=== PATIENT | male | born 1930 | race Hispanic/Latino ===

== ENCOUNTER 2017-08-10 14:13 | Inpatient (IN) | payer MEDICARE ==
[2017-08-10 14:14] VITALS: BMI 20.7
[2017-08-10 15:29] LABS: BASO # 0.02 K/mm3 (0.0-2.0); BASO % 0.2 % (0.0-3.0); EOS # 0.1 (0.0-0.7); EOS % 1.3 % (1.5-5.0); GRAN # 7.37 (1.4-6.5); GRAN % 75.6 % (50.0-68.0); HEMATOCRIT 37.5 % (42.0-52.0); LYMPH # 1.2 (1.2-3.4); LYMPH % 12.4 % (22.0-35.0); MEAN CELL VOLUME 96.2 fl (80.0-105.0); MEAN CORPUSCULAR HEMOGLOBIN 33.1 pg (25.0-35.0); MEAN CORPUSCULAR HGB CONC 34.4 g/dl (31.0-37.0); MEAN PLATELET VOLUME 9.4 fl (7.0-11.0); MONO % 10.5 % (1.0-6.0); RED CELL DISTRIBUTION WIDTH 13.6 % (11.5-14.5); WHITE BLOOD COUNT 9.8 10^3/ul (4.5-11.0)
[2017-08-10 16:29] LABS: ALKALINE PHOSPHATASE 122 U/L (38-126); ALT/SGPT 36 U/L (7-56); AST/SGOT 26 U/L (17-59); BILIRUBIN,TOTAL 0.5 mg/dL (0.2-1.3); BLOOD UREA NITROGEN 30 mg/dL (7-21); CALCIUM 9.2 mg/dL (8.4-10.5); CARBON DIOXIDE 26 mmol/L (21-33); CHLORIDE 108 mmol/L (98-107); GFR AFRICAN-AMERICAN > 60; GLUCOSE,RANDOM 94 mg/dL (70-110); POTASSIUM 3.8 mmol/L (3.6-5.0); SODIUM 141 mmol/L (132-148); TOTAL PROTEIN 7.4 g/dL (5.8-8.3)
[2017-08-10 16:44] LABS: TROPONIN I < 0.01 ng/mL
[2017-08-10] MEDS ORDERED: Vancomycin 1gm in NS 250ml 1 GM/250 ML BAG IVPB STA (16:49)
--- NOTE | 2017-08-10 16:55 | ED PDOC ---
Arrival/HPI - General Chief Complaint: Lower Extremity Problem/Injury Time Seen by Provider: 08/10/17 14:43 Historian: Patient - History of Present Illness Narrative History of Present Illness (Text): 08/10/17 16:52 87yo male with no known PMhx present with bilateral lower extremity pain, redness, edema, wound drainage for weeks. Patient lives by himself and have not seen a Doctor for years. States he have not seen a Doctor in reference to the legs. He denies fever, chills, chest pain, SOB, diaphoresis, any other complaint. 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", right ear hearing loss - Hematological/Oncological Hx Cancer: (denies prostate ca) - Musculoskeletal/Rheumatological Hx Back Pain: Yes Hx Falls: No Hx Unsteady Gait: Yes (uses a cane) - Gastrointestinal Other/Comment: esophagitis, gastritis, gas, uses stool softeners - Genitourinary/Gynecological Hx Prostate Problems: Yes (denies ca, had prostate sx 2 months ago) Other/Comment: dribbling since prostate sx when coughing or laughing - Psychiatric Hx Depression: No Hx Emotional Abuse: No Hx Physical Abuse: No Hx Substance Use: No - Surgical History Other/Comment: left hip replacement 2000 - Suicidal Assessment Feels Threatened In Home Enviroment: No Family/Social History - Physician Review Nursing Documentation Reviewed: Yes Family/Social History: Unknown Family HX Smoking Status: Current Some Days Smoker Hx Alcohol Use: Yes (drinks beer) Hx Substance Use: No Allergies/Home Meds Allergies/Adverse Reactions: Allergies No Known Allergies Allergy (Verified 08/10/17 14:29) Home Medications: Home Meds Medication Instructions Recorded Confirmed No Known Home Med 08/10/17 08/10/17 Review of Systems - Physician Review All systems were reviewed & negative as marked: Yes - Review of Systems Constitutional: Normal Eyes: Normal ENT: Normal Respiratory: Normal Cardiovascular: Edema Gastrointestinal: Normal Genitourinary Male: Normal Musculoskeletal: Normal Skin: Cellulitis (B/L LE) Neurological: Normal Endocrine: Normal Hemo/Lymphatic: Normal Psychiatric: Normal Physical Exam Vital Signs Reviewed: Yes Vital Signs Temp Pulse Resp BP Pulse Ox 08/10/17 19:39 98.8 F 78 18 113/62 97 08/10/17 17:00 98.0 F 76 146/70 18 L 08/10/17 14:30 97.7 F 76 18 107/69 96 08/10/17 14:23 97.7 F 76 16 107/69 98 Temperature: Afebrile Blood Pressure: Normal Pulse: Regular Respiratory Rate: Normal Appearance: Positive for: Non-Toxic, Comfortable, Unkept, Cachectic Pain Distress: None Mental Status: Positive for: Alert and Oriented X 3 - Systems Exam Head: Present: Atraumatic, Normocephalic Pupils: Present: PERRL Extroacular Muscles: Present: EOMI Conjunctiva: Present: Normal Mouth: Present: Moist Mucous Membranes Neck: Present: Normal Range of Motion Respiratory/Chest: Present: Clear to Auscultation, Good Air Exchange. No: Respiratory Distress, Accessory Muscle Use Cardiovascular: Present: Regular Rate and Rhythm, Normal S1, S2. No: Murmurs Abdomen: Present: Normal Bowel Sounds. No: Tenderness, Distention, Peritoneal Signs Back: Present: Normal Inspection Upper Extremity: Present: Normal Inspection. No: Cyanosis, Edema Lower Extremity: Present: Edema (3+ pitting edema b/l), CALF TENDERNESS (b/l), Normal ROM, Tenderness, Erythema (B/L), Neurovascularly Intact, Other (Oozing ulcers noted on b/l LE with central scabs noted). No: NORMAL PULSES (Decreased) , Temperature Abnormalties Neurological: Present: GCS=15, CN II-XII Intact, Speech Normal Skin: Present: Warm, Dry, Normal Color. No: Rashes Psychiatric: Present: Alert, Oriented x 3, Normal Insight, Normal Concentration Medical Decision Making ED Course and Treatment: 08/10/17 20:47 PT in ED for stated history. He appeared cachetic, unkept in ED. He was AAO x3. He notes that he lives alone. He was afebrile and have no leukocytosis. He however needs admission for further evaluation and treatment of his wound. B/L doppler was negative B/L tib/fib - No sub q air. Case was Dw Dr. Harkins and he accepted pt into his service. - Lab Interpretations Lab Results: 08/10/17 14:45 08/10/17 16:10 Lab Results 08/10/17 16:10: Sodium 141, Potassium 3.8, Chloride 108 H, Carbon Dioxide 26, Anion Gap 11, BUN 30 H, Creatinine 1.0, Est GFR ( Amer) > 60, Est GFR ( Non-Af Amer) > 60, Random Glucose 94, Calcium 9.2, Total Bilirubin 0.5, AST 26, ALT 36, Alkaline Phosphatase 122, Lactate Dehydrogenase 571, Total Creatine Kinase 215, Troponin I < 0.01, NT-Pro-B Natriuret Pep 178, Total Protein 7.4, Albumin 3.7, Globulin 3.7, Albumin/Globulin Ratio 1.0 L 08/10/17 14:45: WBC 9.8, RBC 3.90, Hgb 12.9 L, Hct 37.5 L, MCV 96.2, MCH 33.1, MCHC 34.4, RDW 13.6, Plt Count 303, MPV 9.4, Gran % 75.6 H, Lymph % (Auto) 12.4 L, [place] % (Auto) 10.5 H, Eos % (Auto) 1.3 L, Baso % (Auto) 0.2, Gran # 7.37 H, Lymph # 1.2, [place] # 1.0 H, Eos # 0.1, Baso # 0.02 - RAD Interpretation Radiology Orders: 08/10/17 14:44 DUPLEX LOWER EXTRM VEIN BILAT [US] Stat 08/10/17 16:19 FOOT RIGHT 3 VIEWS ROUTINE [RAD] Stat 08/10/17 16:21 TIBIA FIBULA LEFT [RAD] Stat TIBIA FIBULA RIGHT [RAD] Stat 08/10/17 16:22 CHEST ONE VIEW [RAD] Stat - Medication Orders Current Medication Orders: Heparin Sodium (Porcine) (Heparin) 5,000 units SC Q12 ATA PRN Reason: Protocol Sodium Chloride (Sodium Chloride 0.9%) 1,000 mls @ 100 mls/hr IV .Q10H ATA Last Admin: 08/10/17 19:29 Dose: 100 mls/hr eMAR Start Stop Document 08/10/17 19:29 KK (Rec: 08/10/17 19:29 [facility] [id number]) Intravenous Solution Start Date 08/10/17 Start Time 19:00 Ceftriaxone Sodium (Rocephin 1 Gram Ivpb) 1 gm in 100 mls @ 100 mls/hr IVPB DAILY ATA PRN Reason: Protocol Pantoprazole Sodium (Protonix Ec Tab) 40 mg PO 0600 ATA Discontinued Medications Vancomycin HCl (Vancomycin 1gm) 1 gm in 250 mls @ 167 mls/hr IVPB STAT STA PRN Reason: Protocol Stop: 08/10/17 18:18 Last Admin: 08/10/17 19:28 Dose: 167 mls/hr eMAR Start Stop Document 08/10/17 19:28 KK (Rec: 08/10/17 19:29 [facility] [id number]) Intravenous Solution Start Date 08/10/17 Start Time 18:45 Disposition/Present on Arrival - Present on Arrival Any Indicators Present on Arrival: No History of DVT/PE: No History of Uncontrolled Diabetes: No Urinary Catheter: No History of Decub. Ulcer: No History Surgical Site Infection Following: None - Disposition Have Diagnosis and Disposition been Completed?: Yes Diagnosis: Cellulitis Disposition: HOSPITALIZED Disposition Time: 17:00 Patient Problems: Current Active Problems Problem Status Onset Cellulitis Acute Condition: FAIR
--- NOTE | 2017-08-10 17:16 | US ---
HISTORY: Leg pain and swelling. Evaluate for DVT PHYSICIAN(S): Joe Jules MD. TECHNIQUE: Duplex sonography and color-flow Doppler with graded compression were used to evaluate the deep venous systems of both lower extremities. The exam is limited by edema. FINDINGS: The visualized deep venous systems of both lower extremities are sonographically normal and compressible. Normal wave forms and augmentation are seen. There is no sonographic evidence for deep venous thrombosis in the visualized segments of both lower extremities. IMPRESSION: No sonographic evidence for deep venous thrombosis in the visualized segments of both lower extremities. Limited exam
--- NOTE | 2017-08-10 18:31 | CP.PCM.HP ---
Addendum entered and electronically signed by Armond Cota DO 08/10/17 18:59: CRP and ESR ordered as well, pending Original Note: <Armond Cota - Last Filed: 08/10/17 18:45> History of Present Illness - History of Present Illness History of Present Illness: 87 year old man with mostly unknown past medical history presents to the hospital on the advice of his friends because of "worsening wounds" on his legs. Patient states they appeared about 3 weeks ago and he tried to get in contact with a manager electronic without any luck. Over the past couple days it had gotten worse, so his friends told him to come to the emergency department. The patient states he has really bad vision and cannot see, so he was not able to see what was going on with his legs. He denies any pain or radiation. He denies any chest pain, shortness of breath, fever, chills, nausea, vomiting, or any other complaints. Past medical history: blindness, "spinal infection" Past surgical history: prostate surgery (unknown procedure), hip replacement Allergies: NKDA Medications: none, patient does not believe in pharmaceuticals, and takes multiple vitamins Social: denies tobacco use currently, occasional drinking, denies illicit drug use. Patient lives alone in a rented room, and has a friend who takes care fo him Family History: noncontributory Present on Admission - Present on Admission Any Indicators Present on Admission: No Review of Systems - Constitutional Constitutional: absent: Chills, Fever, Headache, Malaise, Weight Loss, Weakness - EENT Eyes: absent: Blurred Vision, Change in Vision Ears: absent: Decreased Hearing, Ear Discharge, Dizziness Nose/Mouth/Throat: absent: Nasal Congestion, Nasal Discharge, Sore Throat - Cardiovascular Cardiovascular: absent: Chest Pain, Dyspnea, Lightheadedness, Palpitations, Rapid Heart Rate - Respiratory Respiratory: absent: Cough, Dyspnea, Dyspnea on Exertion, Wheezing, Chest Congestion - Gastrointestinal Gastrointestinal: absent: Abdominal Pain, Constipation, Diarrhea, Nausea, Vomiting - Genitourinary Genitourinary: absent: Change in Urinary Stream, Difficulty Urinating, Hematuria - Musculoskeletal Musculoskeletal: absent: Arthralgias, Back Pain, Numbness, Tingling - Integumentary Integumentary: Sores, Wounds Additional comments: sores, wounds on feet and legs bilaterally - Neurological Neurological: absent: Abnormal Hearing, Disequilibrium, Dizziness, Numbness, Headaches, Tingling, Weakness - Psychiatric Psychiatric: absent: Confusion - Endocrine Endocrine: Cold Intolorance Past Patient History - Infectious Disease Hx of Infectious Diseases: None - Tetanus Immunizations Tetanus Immunization: Unknown - Past Social History Smoking Status: Current Some Days Smoker - CARDIAC Hx Cardia Arrhythmia: Yes - NEUROLOGICAL Other/Comment: syncopal episode 22 yrs ago - HEENT Other/Comment: 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", right ear hearing loss - HEMATOLOGICAL/ONCOLOGICAL Hx Cancer: (denies prostate ca) - MUSCULOSKELETAL/RHEUMATOLOGICAL Hx Back Pain: Yes Hx Falls: No Hx Unsteady Gait: Yes (uses a cane) - GASTROINTESTINAL Other/Comment: esophagitis, gastritis, gas, uses stool softeners - GENITOURINARY/GYNECOLOGICAL Hx Prostate Problems: Yes (denies ca, had prostate sx 2 months ago) Other/Comment: dribbling since prostate sx when coughing or laughing - PSYCHIATRIC Hx Depression: No Hx Emotional Abuse: No Hx Physical Abuse: No Hx Substance Use: No - SURGICAL HISTORY Other/Comment: left hip replacement 2000 Meds Allergies/Adverse Reactions: Allergies Allergy/AdvReac Type Severity Reaction Status Date / Time No Known Allergies Allergy Verified 08/10/17 14:29 Physical Exam - Constitutional Appears: No Acute Distress - Head Exam Head Exam: ATRAUMATIC, NORMAL INSPECTION, NORMOCEPHALIC - Eye Exam Eye Exam: PERRL - ENT Exam ENT Exam: Mucous Membranes Dry - Neck Exam Neck exam: Positive for: Normal Inspection - Respiratory Exam Respiratory Exam: Clear to Auscultation Bilateral, NORMAL BREATHING PATTERN - Cardiovascular Exam Cardiovascular Exam: REGULAR RHYTHM, +S1, +S2 - GI/Abdominal Exam GI & Abdominal Exam: Normal Bowel Sounds, Soft. absent: Tenderness - Extremities Exam Extremities exam: Negative for: tenderness Additional comments: active breaks in skin, healed scars, active wounds leaking pus - Neurological Exam Neurological exam: Alert - Psychiatric Exam Psychiatric exam: Normal Affect - Skin Skin Exam: Dry Results - Vital Signs Recent Vital Signs: Last Vital Signs Temp 97.7 F 08/10/17 14:30 Pulse 76 08/10/17 14:30 Resp 18 08/10/17 14:30 BP 107/69 08/10/17 14:30 Pulse Ox 96 08/10/17 14:30 - Labs Result Diagrams: 08/10/17 14:45 08/10/17 16:10 Assessment & Plan - Assessment and Plan (Free Text) Assessment: 87 year old man with mostly unknown past medical history presents to the hospital on the advice of his friends because of "worsening wounds" on his legs. Patient states they appeared about 3 weeks ago and he tried to get in contact with a manager electronic without any luck. He is being worked up and treated for lower extremity cellulitis. Plan: 1. Lower Extremity Cellulitis rule out possible osteomyelitis -Patient afebrile 97.7 -No leukocytosis WBC 9.8 -LE US negative for DVT -chest xray ordered, pending -vancomycin given in ED -continue vancomycin and rocephin -blood cultures ordered, pending -urine cultures ordered, pending -nasal cultures ordered, pending -wound cultures ordered, pending -ID consulted -Podiatry consulted -Echo pending -Right foot xray ordered, pending -Tibula/ Fibula Left and right x rays ordered, pending -procalcitonin ordered -A1C ordred -Urine Drug Screen pending -NS @100 started -monitor vitals, CMP, CBC -Lactic acid ordered 2. GI/DVT Prophylaxis -pantoprazole -heparin SC Patient seen and discussed ind etail with the attending, Dr. Carmine White <Carmine White - Last Filed: 08/11/17 15:57> Results - Vital Signs Recent Vital Signs: Last Vital Signs Temp 97.7 F 08/11/17 06:00 Pulse 76 08/11/17 06:00 Resp 20 08/11/17 06:00 BP 135/72 08/11/17 06:00 Pulse Ox 97 08/11/17 06:00 - Labs Result Diagrams: 08/11/17 07:00 08/11/17 07:00 Labs: Laboratory Results - last 24 hr 08/11/17 08/11/17 08/11/17 07:00 07:00 07:00 WBC 9.6 RBC 3.68 Hgb 11.7 L Hct 35.1 L MCV 95.4 MCH 31.8 MCHC 33.3 RDW 13.5 Plt Count 292 MPV 9.3 Gran % 77.5 H Lymph % (Auto) 11.2 L [place] % (Auto) 10.0 H Eos % (Auto) 1.2 L Baso % (Auto) 0.1 Gran # 7.46 H Lymph # 1.1 L [place] # 1.0 H Eos # 0.1 Baso # 0.01 ESR 80 H Sodium Potassium Chloride Carbon Dioxide Anion Gap BUN Creatinine Est GFR ( Amer) Est GFR (Non-Af Amer) Random Glucose Lactic Acid Calcium Total Bilirubin AST ALT Alkaline Phosphatase C-React Prot High Sens > 15.00 H Total Protein Albumin Globulin Albumin/Globulin Ratio 08/11/17 08/11/17 07:00 07:30 WBC RBC Hgb Hct MCV MCH MCHC RDW Plt Count MPV Gran % Lymph % (Auto) [place] % (Auto) Eos % (Auto) Baso % (Auto) Gran # Lymph # [place] # Eos # Baso # ESR Sodium 139 Potassium 3.2 L Chloride 107 Carbon Dioxide 26 Anion Gap 9 L BUN 18 Creatinine 0.8 Est GFR ( Amer) > 60 Est GFR (Non-Af Amer) > 60 Random Glucose 95 Lactic Acid 0.8 Calcium 8.4 Total Bilirubin 0.6 AST 28 ALT 38 Alkaline Phosphatase 95 C-React Prot High Sens Total Protein 6.4 Albumin 3.1 Globulin 3.2 Albumin/Globulin Ratio 1.0 L Attending/Attestation - Attestation I have personally seen and examined this patient.: Yes I have fully participated in the care of the patient.: Yes I have reviewed all pertinent clinical information: Yes Notes (Text): I have seen and examined the patient at bedside. Agree with the above note with the following additions/ exceptions: Briefly this is 87 year old male with history of impaired vision, ex tobacco user, suspected BPH s/p surgery who was advised by his friends to come to the hospital for evaluation of worsening bilateral LE wounds which appears to be cellulitis. Osteomyelitis cannot be ruled out. LE US and xray ordered. Cultures and procal ordered. Will consult ID and podiatry. Will start vanco and rocephin. Upon discharge patient will follow up with PMD of choice. Dr Carmine White
[2017-08-10] MEDS: Sodium Chloride 0.9% 1,000 ML IV SCH (19:29)
[2017-08-11] MEDS: Pantoprazole 40 mg EC Tab PO SCH (05:52)
[2017-08-11] MEDS ORDERED: Vancomycin 1gm in NS 250ml 1 GM/250 ML BAG IVPB SCH (06:00)
[2017-08-11 07:47] LABS: BASO # 0.01 K/mm3 (0.0-2.0); BASO % 0.1 % (0.0-3.0); EOS # 0.1 (0.0-0.7); EOS % 1.2 % (1.5-5.0); GRAN # 7.46 (1.4-6.5); GRAN % 77.5 % (50.0-68.0); HEMATOCRIT 35.1 % (42.0-52.0); LYMPH # 1.1 (1.2-3.4); LYMPH % 11.2 % (22.0-35.0); MEAN CELL VOLUME 95.4 fl (80.0-105.0); MEAN CORPUSCULAR HEMOGLOBIN 31.8 pg (25.0-35.0); MEAN CORPUSCULAR HGB CONC 33.3 g/dl (31.0-37.0); MEAN PLATELET VOLUME 9.3 fl (7.0-11.0); RED CELL DISTRIBUTION WIDTH 13.5 % (11.5-14.5); WHITE BLOOD COUNT 9.6 10^3/ul (4.5-11.0)
[2017-08-11 08:18] LABS: ALKALINE PHOSPHATASE 95 U/L (38-126); ALT/SGPT 38 U/L (7-56); AST/SGOT 28 U/L (17-59); BILIRUBIN,TOTAL 0.6 mg/dL (0.2-1.3); BLOOD UREA NITROGEN 18 mg/dL (7-21); CALCIUM 8.4 mg/dL (8.4-10.5); CARBON DIOXIDE 26 mmol/L (21-33); CHLORIDE 107 mmol/L (95-110); GFR AFRICAN-AMERICAN > 60; GLUCOSE,RANDOM 95 mg/dL (70-110); POTASSIUM 3.2 mmol/L (3.6-5.0); SODIUM 139 mmol/L (132-148); TOTAL PROTEIN 6.4 g/dL (5.8-8.3)
--- NOTE | 2017-08-11 09:20 | RAD ---
PROCEDURE: CHEST RADIOGRAPH, 1 VIEW HISTORY: admission COMPARISON: Portable chest 04/18/2013. FINDINGS: LUNGS: No acute infiltrate is appreciated bilaterally. Left hemidiaphragm appears elevated further in the interval. Etiology unclear. 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 PLEURA: No pneumothorax or pleural fluid seen. CARDIOVASCULAR: Normal. OSSEOUS STRUCTURES: No significant abnormalities. VISUALIZED UPPER ABDOMEN: Normal. OTHER FINDINGS: None. IMPRESSION: No acute interval infiltrate or pleural effusion. No pneumothorax. Further elevation left hemidiaphragm is appreciated.
--- NOTE | 2017-08-11 09:26 | RAD ---
PROCEDURE: Radiographs of the bilateral Tibiae and Fibulae. HISTORY: leg pain/wound COMPARISON: None available. TECHNIQUE: Frontal and lateral views obtained. FINDINGS: BONES: Diffuse osteopenia suggests osteoporosis of the bilateral tibiae and fibulae. RIGHT TIBIA: No fracture or destructive lesion. LEFT TIBIA: No fracture or destructive lesion. JOINT SPACES: Degenerative joint changes are identified at the bilateral knees manifest by joint space narrowing at least at the medial femorotibial compartments. Tibiotalar joints are also diminished in height compatible degenerative joint disease as well. SOFT TISSUES: Phleboliths suggests at the pretibial inferior right leg soft tissues with none apparent on the left. The however, vascular calcifications are seen in the soft tissues bilaterally. OTHER FINDINGS: None. IMPRESSION: Diffuse osteopenia suggests osteoporosis. No acute fracture dislocation bilaterally. Degenerative changes seen at the bilateral knees and ankles as discussed above.
--- NOTE | 2017-08-11 09:30 | RAD ---
PROCEDURE: Right Foot Radiographs. HISTORY: ???FB COMPARISON: None. FINDINGS: BONES: Diffuse osteopenia suggests osteoporosis. No definite displaced fractures appreciated throughout the right foot. There is no destructive bony lesion appreciated throughout. A degenerative cyst is seen at the distal portion of the 1st metatarsal bone best seen in the oblique view. JOINTS: Degenerative cortical sclerosis and joint space narrowing is identified throughout the interphalangeal joints of the digits diffusely was well as at the 1st metatarsophalangeal joint where there is also a moderate hallux valgus deformity. Similar degenerative changes are present throughout the midfoot and hindfoot joints diffusely. SOFT TISSUES: A definitive radiodense retained foreign body is not clearly identified. Heterotopic calcification is felt to be medial to the distal 1st metatarsal bone rather than extrinsic retained foreign body. Clinically correlate further nevertheless. Further, vascular calcifications are suggested at the medial distal leg/ upper ankle soft tissues. OTHER FINDINGS: None. IMPRESSION: Diffuse osteopenia suggests osteoporosis. No fracture or dislocation appreciated. Degenerative changes seen throughout the right foot including hallux valgus deformity. No definitive retained radiodense foreign body although soft tissue calcifications are noted and the forefoot and at the upper ankle/ distal leg medially, as discussed above.
[2017-08-11] MEDS ORDERED: cefTRIAXone 1 gm 1 GM/100 ML BAG IVPB SCH (10:00)
[2017-08-11] MEDS ORDERED: Potassium Chloride 20 mEq ER Tab PO STA (10:03)
--- NOTE | 2017-08-11 11:30 | CON ---
DATE: HISTORY OF PRESENT ILLNESS: This 87-year-old male is seen at bedside for consultation and evaluation and management of bilateral lower leg ulcerations with accompanying cellulitis. The patient is not sure how long the wounds have been there, as he is near blind and cannot see his legs clearly. He states that he was having drainage on his socks and his friends noticed this condition worsening and he suggested that he go to the emergency room. PAST MEDICAL HISTORY: Includes blindness, but the rest of his medical history is unobtainable, as he does not regularly see a primary care doctor and does not believe in taking medicine. PAST SURGICAL HISTORY: Significant for hip replacement and prostate surgery. ALLERGIES: HE HAS NO KNOWN DRUG ALLERGIES. FAMILY HISTORY: Unremarkable. SOCIAL HISTORY: He states that he does not smoke, does not use illicit drugs and drinks only on social occasions. He lives alone. He is unmarried. No children. PHYSICAL EXAMINATION: VITAL SIGNS: Reveal temperature of 97.7, pulse rate of 76, blood pressure of 135/72, and respiratory rate of 20. EXTREMITIES: Nonpalpable pedal pulses noted bilaterally and +2 nonpitting lower extremity edema noted bilaterally. Lower extremity skin presents thin, shiny and discolored. There is noted to be edema and erythema and increased with calor on both lower legs. There are open lesions noted on the medial aspect of each lower leg. Base of the ulcerations are mixture of granular and fibrotic tissue. There is no purulence noted. There is serous drainage only. None of the ulcers probed to tendon or bone. Both lower legs present with erythema and edema with calor to indicate cellulitis. LABORATORY DATA: There is no microbiology report noted. DIAGNOSTIC DATA: X-rays of the tib-fib and foot bilaterally revealed no radiographic evidence of fracture dislocation, tumor, no signs of cortical obstructions to suggest osteomyelitis. Venous Doppler taken yesterday reveals no presence of deep vein thrombosis. ASSESSMENT: Full thickness lower leg ulcerations with accompanying cellulitis. PLAN: Culture was taken and submitted for sensitivities. Recommend immediate infectious disease consult to evaluate culture and sensitivity results and prescribe accordingly. Wounds are cleansed with normal sterile saline and dry sterile dressing was applied. We will order Bactroban to apply with compressive dressing. We will order arterial Doppler to ascertain arterial lower extremity perfusion and will order an MRI on both lower legs to rule out underlying abscess formations. The patient is currently on vancomycin empirically. We will await ceftriaxone empirically and we will await infectious disease input with more specific antibiotic coverage pending C and S results. Petey Lewis DPM
--- NOTE | 2017-08-11 14:44 | CP.PCM.PN ---
<Leander Wilkins - Last Filed: 08/11/17 14:50> Subjective - Date & Time of Evaluation Date of Evaluation: 08/11/17 Time of Evaluation: 09:45 - Subjective Subjective: patient was seen and examined at bedside. pt complains of b/l LE pain. otherwise , pt denies cp, sob, cough, abdominal pain, n/v/d, headaches, changes in vision/ hearing, weakness, fevers/chills. explained to pt that podiatry will be seeing him soon. Objective - Vital Signs/Intake and Output Vital Signs (last 24 hours): Temp Pulse Resp BP Pulse Ox 97.7 F 76 20 135/72 97 08/11/17 06:00 08/11/17 06:00 08/11/17 06:00 08/11/17 06:00 08/11/17 06:00 Intake and Output: 08/11/17 08/11/17 06:59 18:59 Intake Total 360 Output Total 200 Balance 160 - Medications Medications: Current Medications Heparin Sodium (Porcine) (Heparin) 5,000 units SC Q12 ATA PRN Reason: Protocol Last Admin: 08/11/17 09:52 Dose: 5,000 units Sodium Chloride (Sodium Chloride 0.9%) 1,000 mls @ 100 mls/hr IV .Q10H [facility] Last Admin: 08/10/17 19:29 Dose: 100 mls/hr Ceftriaxone Sodium (Rocephin 1 Gram Ivpb) 1 gm in 100 mls @ 100 mls/hr IVPB DAILY [facility] PRN Reason: Protocol Last Admin: 08/11/17 09:51 Dose: 100 mls/hr Vancomycin HCl (Vancomycin 1gm) 1 gm in 250 mls @ 167 mls/hr IVPB Q12H [facility] PRN Reason: Protocol Last Admin: 08/11/17 05:52 Dose: 167 mls/hr Mupirocin (Bactroban Ointment) 0 gm TOP DAILY [facility] Last Admin: 08/11/17 11:01 Dose: Not Given Pantoprazole Sodium (Protonix Ec Tab) 40 mg PO 0600 [facility] Last Admin: 08/11/17 05:52 Dose: 40 mg - Labs Labs: 08/11/17 07:00 08/11/17 07:00 - Constitutional Appears: Well, Non-toxic, No Acute Distress - Head Exam Head Exam: NORMAL INSPECTION - Eye Exam Eye Exam: Normal appearance - ENT Exam ENT Exam: Mucous Membranes Moist, Normal Exam - Neck Exam Neck Exam: Normal Inspection - Respiratory Exam Respiratory Exam: Clear to Ausculation Bilateral, NORMAL BREATHING PATTERN - Cardiovascular Exam Cardiovascular Exam: RRR, +S1, +S2 - GI/Abdominal Exam GI & Abdominal Exam: Soft, Normal Bowel Sounds. absent: Tenderness - Extremities Exam Extremities Exam: Pedal Edema (2+ b/l), Tenderness Additional comments: wounds with serous fluids leakage b/l b/l erythema and pedal edema 2+ - Back Exam Back Exam: NORMAL INSPECTION - Neurological Exam Neurological Exam: Alert, Awake, Oriented x3 - Psychiatric Exam Psychiatric exam: Normal Affect, Normal Mood - Skin Skin Exam: Normal Color, Warm Assessment and Plan - Assessment and Plan (Free Text) Assessment: 87yo M PMH arrhythmia, back pain, BPH who presents with LE lesions likely 2/2 cellulitis r/o osteomyelitis Plan: 1. b/l LE cellulitis - NO DVT on US - pt remains afebrile w/o leukocytosis - Podiatry consulted - ID consulted - blood, wound, urine and nose cultures ordered - Rocephin d1 and Vancomycin d2 - procal ordered - B/L LE MRI ordered to r/o osteo - LE Arterial US ordered per pods 2. hypokalemia - replete - f/u BMP PTX/ heparin Regular Diet Patient was seen, examined and discussed with attending, Franky Nickerson PGY1 <Carmine White - Last Filed: 08/11/17 15:59> Objective - Vital Signs/Intake and Output Vital Signs (last 24 hours): Temp Pulse Resp BP Pulse Ox 97.7 F 76 20 135/72 97 08/11/17 06:00 08/11/17 06:00 08/11/17 06:00 08/11/17 06:00 08/11/17 06:00 Intake and Output: 08/11/17 08/11/17 06:59 18:59 Intake Total 360 Output Total 200 Balance 160 - Medications Medications: Current Medications Heparin Sodium (Porcine) (Heparin) 5,000 units SC Q12 ATA PRN Reason: Protocol Last Admin: 08/11/17 09:52 Dose: 5,000 units Sodium Chloride (Sodium Chloride 0.9%) 1,000 mls @ 100 mls/hr IV .Q10H [facility] Last Admin: 08/10/17 19:29 Dose: 100 mls/hr Ceftriaxone Sodium (Rocephin 1 Gram Ivpb) 1 gm in 100 mls @ 100 mls/hr IVPB DAILY [facility] PRN Reason: Protocol Last Admin: 08/11/17 09:51 Dose: 100 mls/hr Vancomycin HCl (Vancomycin 1gm) 1 gm in 250 mls @ 167 mls/hr IVPB Q12H [facility] PRN Reason: Protocol Last Admin: 08/11/17 05:52 Dose: 167 mls/hr Ibuprofen (Motrin Tab) 400 mg PO Q6H PRN PRN Reason: Pain, Mild (1-3) Last Admin: 08/11/17 15:44 Dose: 400 mg Mupirocin (Bactroban Ointment) 0 gm TOP DAILY [facility] Last Admin: 08/11/17 11:01 Dose: Not Given Pantoprazole Sodium (Protonix Ec Tab) 40 mg PO 0600 [facility] Last Admin: 08/11/17 05:52 Dose: 40 mg - Labs Labs: 08/11/17 07:00 08/11/17 07:00 Attending/Attestation - Attestation I have personally seen and examined this patient.: Yes I have fully participated in the care of the patient.: Yes I have reviewed all pertinent clinical information, including history, physical exam and plan: Yes Notes (Text): I have seen and examined the patient at bedside. Agree with the above note with the following additions/ exceptions: Briefly this is 87 year old male with history of impaired vision, ex tobacco user, suspected BPH s/p surgery who was advised by his friends to come to the hospital for evaluation of worsening bilateral LE wounds which appears to be cellulitis. Osteomyelitis cannot be ruled out. LE US is negative for DVT. Xray reviewed. MRI pending. Cultures and procal pending. Discussed with ID and podiatry. Continue vanco and rocephin. Upon discharge patient will follow up with PMD of choice. Dr Carmine White
[2017-08-11] MEDS: Sodium Chloride 0.9% 1,000 ML IV SCH (17:52)
--- NOTE | 2017-08-11 19:01 | US ---
PROCEDURE: Lower extremity YESENIA exam HISTORY: Peripheral vascular disease with pain and ulceration. Smoker. PHYSICIAN(S): Joe Jules MD. FINDINGS: The resting YESENIA's are moderately abnormal: Right, 0.54 and left, 0.63 The brachial systolic pressures are symmetric. The low thigh pressures and waveforms are relatively normal. There is a 47 mm gradient across the right knee and a 40 mm gradient across the left knee. This is consistent with bilateral distal SFA, popliteal, and/ or trifurcation disease. The ankle and metatarsal waveforms are moderately blunted. IMPRESSION: 1. Moderately abnormal ABIs at rest 2. Bilateral distal SFA, popliteal, and/ or trifurcation disease 3. If clinically indicated, further imaging can be performed with a CTA runoff, MRA runoff, or conventional arteriogram
[2017-08-11] MEDS: Ceftaroline 600 MG in Sodium Chloride 0.9% 100 ML IVPB SCH (21:20)
[2017-08-11] MEDS ORDERED: TraMADol/Apap 37.5/325 mg Tab PO ONE (23:19)
--- NOTE | 2017-08-12 03:40 | CON ---
DATE: 08/11/2017 LOCATION: The patient is in bed, in room 367, bed 1. CHIEF COMPLAINT: Lower extremity erythema times several days. 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 Harkins's chart from 2013 and states the patient had a prostate infection, duodenitis, and gastritis, who was admitted through the emergency room and seen by Dr. Wiliam Suazo, who writes that the patient admitted with bilateral lower extremity pain, redness, edema, and drainage. No fevers and chills. No nausea or vomiting. No chest pain. No abdominal pain, diarrhea, or constipation. No headaches or blurred vision. 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 PAST SURGICAL HISTORY: Significant for prostate surgery 2 months ago. ALLERGIES: THE PATIENT HAS NO KNOWN ALLERGIES TO ANY ANTIBIOTICS. MEDICATIONS AT HOME: No known home medication. PHYSICAL EXAMINATION: GENERAL: The patient appears chronically ill, debilitated, older than his stated age of 87. VITAL SIGNS: Temperature of 97, blood pressure is 130/70, respiratory rate of 20, heart rate is 78 with the patient's BMI of 20. HEENT: Unremarkable. NECK: Supple. LUNGS: Decreased breath sounds. HEART: Normal S1 and S2. ABDOMEN: Soft and nontender. EXTREMITIES: Examination of lower extremity reveals erythema and edema, it is minimal; however, there is significant erythema of lower extremities with necrotic area. LABORATORY DATA: Reveals white count of 9.6, hemoglobin of 11, platelets of 292, sed rate is 80. BUN of 30, creatinine of 1.0, C-reactive protein is greater than 15. No urinalysis is available. The patient had a chest x-ray, and no acute interval infiltrates, no pneumothorax. 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 The patient has had renal failure in the past with a creatinine up to 1.4 in 2012 where treat the patient with Teflaro, did not use vancomycin for a possible history of scleroderma and history of renal failure in this patient. We will discontinue the vancomycin. We will discontinue ceftriaxone. We will use Teflaro. Should have imaging to rule out an underlying osteomyelitis, should have the scleroderma workup and vascular workup, arterial Doppler, venous Doppler, MRI to rule out underlying vascular disease. We will follow closely with you. Malachi Barr MD
[2017-08-12] MEDS: Pantoprazole 40 mg EC Tab PO SCH (05:51)
[2017-08-12 08:02] LABS: BASO # 0.01 K/mm3 (0.0-2.0); BASO % 0.1 % (0.0-3.0); EOS # 0.2 (0.0-0.7); EOS % 2.9 % (1.5-5.0); GRAN # 4.69 (1.4-6.5); GRAN % 67.8 % (50.0-68.0); HEMATOCRIT 36.2 % (42.0-52.0); LYMPH # 1.2 (1.2-3.4); LYMPH % 16.8 % (22.0-35.0); MEAN CELL VOLUME 95.8 fl (80.0-105.0); MEAN CORPUSCULAR HEMOGLOBIN 31.7 pg (25.0-35.0); MEAN CORPUSCULAR HGB CONC 33.1 g/dl (31.0-37.0); MEAN PLATELET VOLUME 9.4 fl (7.0-11.0); MONO # 0.9 (0.1-0.6); MONO % 12.4 % (1.0-6.0); RED CELL DISTRIBUTION WIDTH 13.7 % (11.5-14.5); WHITE BLOOD COUNT 6.9 10^3/ul (4.5-11.0)
[2017-08-12 08:22] LABS: ALB/GLOB RATIO 0.9 (1.1-1.8); ALKALINE PHOSPHATASE 83 U/L (38-126); ALT/SGPT 31 U/L (7-56); AST/SGOT 27 U/L (17-59); BILIRUBIN,TOTAL 0.6 mg/dL (0.2-1.3); BLOOD UREA NITROGEN 14 mg/dL (7-21); CALCIUM 8.3 mg/dL (8.4-10.5); CARBON DIOXIDE 26 mmol/L (21-33); CHLORIDE 107 mmol/L (95-110); GFR AFRICAN-AMERICAN > 60; GLUCOSE,RANDOM 86 mg/dL (70-110); POTASSIUM 3.4 mmol/L (3.6-5.0); SODIUM 139 mmol/L (132-148); TOTAL PROTEIN 6.1 g/dL (5.8-8.3)
--- NOTE | 2017-08-12 09:06 | CARD ---
APPROVED REPORT EXAM: Two-dimensional and M-mode echocardiogram with Doppler and color Doppler. Other Information Quality : PoorRhythm : INDICATION Cellulitis, edema. 2D DIMENSIONS IVSd1.1 (0.7-1.1cm)LVDd3.9 (3.9-5.9cm) PWd1.2 (0.7-1.1cm)LVDs2.9 (2.5-4.0cm) FS (%) 24.9 %LVEF (%)50.0 (>50%) M-Mode DIMENSIONS Left Atrium (MM)3.60 (2.5-4.0cm)Aortic Root3.00 (2.2-3.7cm) Aortic Cusp Exc.1.70 (1.5-2.0cm) Aortic Valve AoV Peak Ibtzkvde524.0cm/Amanda Peak GR.11mmHg Mitral Valve MV E Hgieqkxb30.5cm/sMV A Mobfrsph88.5cm/sE/A ratio1.0 TDI Lateral E' Peak V14.40cm/sMedial E' Peak V8.48cm/sE/Lateral E'5.5 E/Medial E'9.3 Tricuspid Valve TR Peak Ssoyztim072lu/sRAP CQMHMXEI13xxTkQN Peak Gr.29mmHg PYUU47fqVt LEFT VENTRICLE The left ventricle is normal size. There is normal left ventricular wall thickness. The left ventricular function is normal. The left ventricular ejection fraction is within the normal range. There is normal LV segmental wall motion. RIGHT VENTRICLE The right ventricle is normal size. ATRIA The left atrium size is normal. The right atrium size is normal. The interatrial septum is intact with no evidence for an atrial septal defect. AORTIC VALVE The aortic valve is moderately to severely calcified. MITRAL VALVE The mitral valve is mildly thickened but opens well. Mitral regurgitation is trace. TRICUSPID VALVE The tricuspid valve is normal in structure. There is trace tricuspid regurgitation. PULMONIC VALVE The pulmonic valve is not well visualized. GREAT VESSELS The aortic root is normal in size. PERICARDIAL EFFUSION There is no pericardial effusion. <Conclusion> Limited Study. The left ventricle is normal size. There is normal left ventricular wall thickness. The left ventricular function is normal. The aortic valve is moderately to severely calcified. Aortic sclerosis vs. mild . Mitral regurgitation is trace. There is trace tricuspid regurgitation.
[2017-08-12] MEDS: Ceftaroline 600 MG in Sodium Chloride 0.9% 100 ML IVPB SCH ×2 (09:24→22:48)
--- NOTE | 2017-08-12 10:56 | CP.PCM.PN ---
Addendum entered and electronically signed by Saad Asencio DPM 08/12/17 12:58 : Vascular consult- recommendations appreciated Ordered multipodus boots for bilateral lower extremity- to be applied at all times when in bed. Original Note: <Saad Asencio - Last Filed: 08/12/17 12:16> Subjective - Date & Time of Evaluation Date of Evaluation: 08/12/17 Time of Evaluation: 10:56 - Subjective Subjective: Progress note for Dr. Lewis: 87 y.o male seen at bedside for bilaterally lower extremity ulcerations with cellulitis. Patient is seen resting comfortably in bed, NAD, and AA0X3. Patient reports lower extremity pain localized to the sites of ulceration and also is reporting heel pain. Denies n/v/sob/cp/chills or f. Dressing is clean, dry, and intact with no strikethrough noted. No other pedal complaint at this time. Objective - Vital Signs/Intake and Output Vital Signs (last 24 hours): Temp Pulse Resp BP Pulse Ox 98.0 F 68 18 149/79 95 08/12/17 06:00 08/12/17 06:00 08/12/17 06:00 08/12/17 06:00 08/12/17 06:00 Intake and Output: 08/12/17 08/12/17 06:59 18:59 Intake Total 540 Output Total 700 Balance -160 - Medications Medications: Current Medications Heparin Sodium (Porcine) (Heparin) 5,000 units SC Q12 ATA PRN Reason: Protocol Last Admin: 08/12/17 09:25 Dose: 5,000 units Sodium Chloride (Sodium Chloride 0.9%) 1,000 mls @ 100 mls/hr IV .Q10H [facility] Last Admin: 08/11/17 17:52 Dose: 100 mls/hr Ceftaroline Fosamil 600 mg/ (Sodium Chloride) 100 mls @ 100 mls/hr IVPB Q12 [facility]A PRN Reason: Protocol Stop: 08/20/17 22:01 Last Admin: 08/12/17 09:24 Dose: 100 mls/hr Ibuprofen (Motrin Tab) 400 mg PO Q6H PRN PRN Reason: Pain, Mild (1-3) Last Admin: 08/11/17 21:20 Dose: 400 mg Mupirocin (Bactroban Ointment) 0 gm TOP DAILY [facility] Last Admin: 08/12/17 09:26 Dose: Not Given Pantoprazole Sodium (Protonix Ec Tab) 40 mg PO 0600 [facility] Last Admin: 08/12/17 05:51 Dose: 40 mg Tramadol/Acetaminophen (Ultracet 37.5/325 Mg) 1 tab PO Q8H PRN PRN Reason: Pain, moderate (4-7) - Labs Labs: 08/12/17 07:00 08/12/17 07:00 - Constitutional Appears: Well, Non-toxic, No Acute Distress - Extremities Exam Additional comments: Vasc: nonpalpabe DP and PT pulses, +2 nonpitting lower extremity edema bilaterally, temperature gradient is WNL, CFT <4 seconds noted to the digitals Ortho: MM is 3/5 in all four compartments secondary to age, severe pain with palpation to the ulceration sites bilaterally Neuro: gross and protective sensation diminished bilaterally Derm: lower extremity thin, shiny and discolored. Ulcerations noted to the posterior mid right leg and lateral lower left leg with similiar presentation. Wound base are mixture granular and fibrotic. Erythema noted to the ulcerations. No purulence, no undermining, no tunneling, no probe to bone. There is erythema with no open lesions noted to the lateral mallelous, dorsum of the digits, and plantar heel most consistent with increase pressure areas. - Neurological Exam Neurological Exam: Alert, Awake, Oriented x3 - Psychiatric Exam Psychiatric exam: Normal Affect, Normal Mood Assessment and Plan - Assessment and Plan (Free Text) Assessment: 87 y.o male with multiple full thickness lower extremity ulcerations with accompanying cellulitis Plan: Patient was examined and evaluated Charts, labs, vitals reviewed (afebrile, WBC=6.9) Discussed plan in detail with atteding Dr. Lewis Dressing changed with saline, adaptic, dsd, kerlix, and light MAKENZIE Will apply Bactroban tmr with dressing change X-rays results- diffuse osteopenia suggests osteoporosis. No fracture or dislocation appreciate or destructive lesions noted Wound culture pending L Leg final results- preliminary: staph aureus, gram - kelli , gram - kelli #2 Wound culture pending R Leg final results- preliminary: gram negative kelli Ultrasound: YESENIA moderately abnormal- L YESENIA .63 and R YESENIA .54 Moderate abnormal ABIs at rest, bilateral distal SFA, popliteal, and/or trifurcation disease F/U MRI to rule out abscess Continue abx Will continue local wound care Will continue to follow while in house <Petey Lewis - Last Filed: 08/15/17 15:05> Objective - Vital Signs/Intake and Output Vital Signs (last 24 hours): Temp Pulse Resp BP Pulse Ox 97.8 F 63 20 152/78 H 99 08/14/17 08:15 08/14/17 08:15 08/14/17 08:15 08/14/17 08:15 08/14/17 08:15 - Labs Labs: 08/14/17 05:50 08/14/17 05:50 Attending/Attestation - Attestation I have personally seen and examined this patient.: Yes I have fully participated in the care of the patient.: Yes I have reviewed all pertinent clinical information, including history, physical exam and plan: Yes
[2017-08-12] MEDS: TraMADol/Apap 37.5/325 mg Tab PO PRN ×2 (12:29→20:44)
--- NOTE | 2017-08-12 13:12 | CP.PCM.PN ---
<Leander Wilkins - Last Filed: 08/12/17 12:59> Subjective - Date & Time of Evaluation Date of Evaluation: 08/12/17 Time of Evaluation: 08:45 - Subjective Subjective: patient was seen and examined at bedside. he states that he grew up in a longterm since his mom was hospitalized and his dad was not in the picture. pt states that he does not have family members or next of kin, and mainly has close contacts to 3 different persons, each named Vito. pt unable to see his legs, but he came in because they were causing him discomfort and his friends told him to come get them checked out. pain has improved. pt denies chest pain, sob, cough, headache, changes in hearing, weakness, n/v/d, fevers/chills. Objective - Vital Signs/Intake and Output Vital Signs (last 24 hours): Temp Pulse Resp BP Pulse Ox 98.0 F 68 18 149/79 95 08/12/17 06:00 08/12/17 06:00 08/12/17 06:00 08/12/17 06:00 08/12/17 06:00 Intake and Output: 08/12/17 08/12/17 06:59 18:59 Intake Total 540 Output Total 700 Balance -160 - Medications Medications: Current Medications Heparin Sodium (Porcine) (Heparin) 5,000 units SC Q12 [facility] PRN Reason: Protocol Last Admin: 08/12/17 09:25 Dose: 5,000 units Sodium Chloride (Sodium Chloride 0.9%) 1,000 mls @ 100 mls/hr IV .Q10H [facility] Last Admin: 08/11/17 17:52 Dose: 100 mls/hr Ceftaroline Fosamil 600 mg/ (Sodium Chloride) 100 mls @ 100 mls/hr IVPB Q12 [facility] PRN Reason: Protocol Stop: 08/20/17 22:01 Last Admin: 08/12/17 09:24 Dose: 100 mls/hr Ibuprofen (Motrin Tab) 400 mg PO Q6H PRN PRN Reason: Pain, Mild (1-3) Last Admin: 08/11/17 21:20 Dose: 400 mg Mupirocin (Bactroban Ointment) 0 gm TOP DAILY [facility] Last Admin: 08/12/17 09:26 Dose: Not Given Pantoprazole Sodium (Protonix Ec Tab) 40 mg PO 0600 [facility] Last Admin: 08/12/17 05:51 Dose: 40 mg Tramadol/Acetaminophen (Ultracet 37.5/325 Mg) 1 tab PO Q8H PRN PRN Reason: Pain, moderate (4-7) Last Admin: 08/12/17 12:29 Dose: 1 tab - Labs Labs: 08/12/17 07:00 08/12/17 07:00 - Additional Findings Additional findings: - Constitutional Appears: Well, Non-toxic, No Acute Distress - Head Exam Head Exam: NORMAL INSPECTION - Eye Exam Eye Exam: Normal appearance Additional comments: Decreased visual acuity - ENT Exam ENT Exam: Mucous Membranes Moist, Normal Exam - Neck Exam Neck Exam: Normal Inspection - Respiratory Exam Respiratory Exam: Clear to Ausculation Bilateral, NORMAL BREATHING PATTERN - Cardiovascular Exam Cardiovascular Exam: RRR, +S1, +S2 - GI/Abdominal Exam GI & Abdominal Exam: Soft, Normal Bowel Sounds. absent: Tenderness - Extremities Exam Extremities Exam: Pedal Edema (1+ b/l), Tenderness Additional comments: b/l LE wrapped in bob bandage - Back Exam Back Exam: NORMAL INSPECTION - Neurological Exam Neurological Exam: Alert, Awake, Oriented x3 - Psychiatric Exam Psychiatric exam: Normal Affect, Normal Mood - Skin Skin Exam: Normal Color, Warm Assessment and Plan - Assessment and Plan (Free Text) Assessment: 87yo M PMH arrhythmia, back pain, BPH who presents with LE lesions likely 2/2 cellulitis r/o osteomyelitis Plan: 1. b/l LE cellulitis - cultures growing: LLE (staph aureus and G- rods), and RLE (G- rods) - blood cxs negative for growth - NO DVT on US - pt remains afebrile w/o leukocytosis - Podiatry consulted - ceftaroline ordered, per ID recs - Rocephin and Vancomycin d/c - procal 0.05 - B/L LE MRI ordered to r/o osteo - LE Arterial US ordered per pods - IR also consulted due to weak pulses b/l LE - ultracet Q8PRN - PT eval 2. hypokalemia - replete - f/u BMP 3. stage 1 sacral ulcer - turn patient - apply dressing PRN PTX/ heparin Regular Diet Patient was seen, examined and discussed with attending, Franky Olivera PGY1 <Ekaterina Duncan - Last Filed: 08/12/17 14:27> Objective - Vital Signs/Intake and Output Vital Signs (last 24 hours): Temp Pulse Resp BP Pulse Ox 98.0 F 68 18 149/79 95 08/12/17 06:00 08/12/17 06:00 08/12/17 06:00 08/12/17 06:00 08/12/17 06:00 Intake and Output: 08/12/17 08/12/17 06:59 18:59 Intake Total 540 Output Total 700 Balance -160 - Medications Medications: Current Medications Heparin Sodium (Porcine) (Heparin) 5,000 units SC Q12 [facility] PRN Reason: Protocol Last Admin: 08/12/17 09:25 Dose: 5,000 units Sodium Chloride (Sodium Chloride 0.9%) 1,000 mls @ 100 mls/hr IV .Q10H [facility] Last Admin: 08/11/17 17:52 Dose: 100 mls/hr Ceftaroline Fosamil 600 mg/ (Sodium Chloride) 100 mls @ 100 mls/hr IVPB Q12 [facility] PRN Reason: Protocol Stop: 08/20/17 22:01 Last Admin: 08/12/17 09:24 Dose: 100 mls/hr Ibuprofen (Motrin Tab) 400 mg PO Q6H PRN PRN Reason: Pain, Mild (1-3) Last Admin: 08/11/17 21:20 Dose: 400 mg Mupirocin (Bactroban Ointment) 0 gm TOP DAILY [facility] Last Admin: 08/12/17 09:26 Dose: Not Given Neomycin/Polymyxin/Bacitracin (Neosporin Triple Antibiotic Oint) 0 gm TOP DAILY PRN PRN Reason: Inflammation Pantoprazole Sodium (Protonix Ec Tab) 40 mg PO 0600 [facility] Last Admin: 08/12/17 05:51 Dose: 40 mg Tramadol/Acetaminophen (Ultracet 37.5/325 Mg) 1 tab PO Q8H PRN PRN Reason: Pain, moderate (4-7) Last Admin: 08/12/17 12:29 Dose: 1 tab - Labs Labs: 08/12/17 07:00 08/12/17 07:00 Attending/Attestation - Attestation I have personally seen and examined this patient.: Yes I have fully participated in the care of the patient.: Yes I have reviewed all pertinent clinical information, including history, physical exam and plan: Yes Notes (Text): 08/12/17 14:25 Attending note; Patient seen and examined with resident. Patient is a 87 year old male with history of impaired vision, ex tobacco user, suspected BPH s/p surgery few years ago who was advised by his friends to come to the hospital for evaluation of worsening bilateral lower extremity wounds which appears to be cellulitis. Currently on IV Teflaro. Wound culture is positive for staph aureus and gram- negative rods. Sensitivity pending. Venous Doppler is negative for DVT. Significant bilateral SFA, popliteal disease as per arterial Doppler. Will follow-up with vascular surgery. Continue local wound care by podiatry. Osteomyelitis cannot be ruled out. MRI of the lower extremity is pending . Discussed with ID and podiatry. Upon discharge patient will follow up with PMD of choice.
[2017-08-12] MEDS ORDERED: Potassium Chloride 20 mEq ER Tab PO STA (13:25)
[2017-08-12] MEDS ORDERED: Bacitracin/Neomycin/Polymyxin Oint(30GM) TOP PRN (13:27)
--- NOTE | 2017-08-12 20:16 | PN ---
DATE: 08/12/2017 SUBJECTIVE: The patient is in bed in no acute distress, nontoxic. PHYSICAL EXAMINATION: VITAL SIGNS: Temperature is 98, blood pressure is 140/70, respiratory rate of 16. HEENT: Examination of HEENT is unremarkable. NECK: Supple. LUNGS: Have decreased breath sounds. HEART: Normal S1, S2. ABDOMEN: Examination is soft, nontender. EXTREMITIES: Examination of the lower extremities improved. LABORATORY EXAMINATION: Reveals a white count of 6.9, hemoglobin of 12, platelets of 291. Chemistries reveals a BUN of 14, creatinine of 0.9, procalcitonin 0.05. Microbiology is noted ASSESSMENT AND PLAN: This is an 87-year-old with past medical history significant for cardiac arrhythmia and syncope. The patient states that he had made a mistake regarding telling me yesterday that he had possible scleroderma. He is actually a poor historian and now is admitted with history of prostate infection, gastritis, duodenitis, prostate surgery two months ago and was found to have bilateral lower extremity cellulitis. The patient did have renal failure in the past and has use vancomycin, currently on Teflaro day #2. Awaiting for MRI, vascular workup to rule out underlying arterial disease and osteomyelitis workup are pending. The patient does have staph and wound Gram negatives in the leg. We are awaiting for further identification and sensitivity. We will make further recommendations. Malachi Barr MD
[2017-08-13 07:03] LABS: ALB/GLOB RATIO 0.9 (1.1-1.8); ALKALINE PHOSPHATASE 75 U/L (38-126); ALT/SGPT 29 U/L (7-56); AST/SGOT 25 U/L (17-59); BILIRUBIN,TOTAL 0.4 mg/dL (0.2-1.3); BLOOD UREA NITROGEN 16 mg/dL (7-21); CALCIUM 8.1 mg/dL (8.4-10.5); CARBON DIOXIDE 29 mmol/L (21-33); CHLORIDE 107 mmol/L (98-107); GFR AFRICAN-AMERICAN > 60; GLUCOSE,RANDOM 90 mg/dL (70-110); SODIUM 138 mmol/L (132-148); TOTAL PROTEIN 5.6 g/dL (5.8-8.3)
[2017-08-13 07:08] LABS: BASO # 0.01 K/mm3 (0.0-2.0); BASO % 0.1 % (0.0-3.0); EOS # 0.3 (0.0-0.7); EOS % 3.9 % (1.5-5.0); GRAN # 4.38 (1.4-6.5); GRAN % 65.5 % (50.0-68.0); HEMATOCRIT 33.5 % (42.0-52.0); LYMPH # 1.4 (1.2-3.4); LYMPH % 20.8 % (22.0-35.0); MEAN CORPUSCULAR HEMOGLOBIN 31.8 pg (25.0-35.0); MEAN CORPUSCULAR HGB CONC 33.1 g/dl (31.0-37.0); MEAN PLATELET VOLUME 9.1 fl (7.0-11.0); MONO # 0.7 (0.1-0.6); MONO % 9.7 % (1.0-6.0); RED CELL DISTRIBUTION WIDTH 13.8 % (11.5-14.5); WHITE BLOOD COUNT 6.7 10^3/ul (4.5-11.0)
--- NOTE | 2017-08-13 08:47 | MRI ---
PROCEDURE: MRI of the right lower extremity without contrast HISTORY: lower leg ulcers with infection COMPARISON: TECHNIQUE: MRI of the right lower extremity was performed in the sagittal plane only. The patient refused any further scanning. The study is limited FINDINGS: There is no evidence of marrow edema to suggest osteomyelitis. There is no evidence of abscess or muscular edema. The Achilles tendon is intact IMPRESSION: Negative limited study
[2017-08-13] MEDS: Ceftaroline 600 MG in Sodium Chloride 0.9% 100 ML IVPB SCH ×2 (11:18→21:46)
[2017-08-13] MEDS: TraMADol/Apap 37.5/325 mg Tab PO PRN (11:19)
--- NOTE | 2017-08-13 11:56 | CP.PCM.PN ---
<Armond Cota - Last Filed: 08/13/17 15:26> Subjective - Date & Time of Evaluation Date of Evaluation: 08/13/17 Time of Evaluation: 06:00 - Subjective Subjective: Patient seen and evaluated bedside. Patient denied any acute events or incidents. Patient stated he was eating a lot but yet to have a bowel movement. He denied any chest pain, shortness of breath, nausea, abdominal pain, vomiting , or any other complaints. Objective - Vital Signs/Intake and Output Vital Signs (last 24 hours): Temp Pulse Resp BP Pulse Ox 98.7 F 67 18 113/75 94 L 08/13/17 09:08 08/13/17 09:08 08/13/17 09:08 08/13/17 09:08 08/13/17 09:08 Intake and Output: 08/13/17 08/13/17 06:59 18:59 Intake Total 540 Output Total 1060 Balance -520 - Medications Medications: Current Medications Heparin Sodium (Porcine) (Heparin) 5,000 units SC Q12 ATA PRN Reason: Protocol Last Admin: 08/13/17 11:17 Dose: 5,000 units Sodium Chloride (Sodium Chloride 0.9%) 1,000 mls @ 100 mls/hr IV .Q10H [facility] Last Admin: 08/11/17 17:52 Dose: 100 mls/hr Ceftaroline Fosamil 600 mg/ (Sodium Chloride) 100 mls @ 100 mls/hr IVPB Q12 ATA PRN Reason: Protocol Stop: 08/20/17 22:01 Last Admin: 08/13/17 11:18 Dose: 100 mls/hr Ibuprofen (Motrin Tab) 400 mg PO Q6H PRN PRN Reason: Pain, Mild (1-3) Last Admin: 08/11/17 21:20 Dose: 400 mg Mupirocin (Bactroban Ointment) 0 gm TOP DAILY [facility] Last Admin: 08/13/17 11:19 Dose: Not Given Neomycin/Polymyxin/Bacitracin (Neosporin Triple Antibiotic Oint) 0 gm TOP DAILY PRN PRN Reason: Inflammation Pantoprazole Sodium (Protonix Ec Tab) 40 mg PO 0600 [facility] Last Admin: 08/12/17 05:51 Dose: 40 mg Tramadol/Acetaminophen (Ultracet 37.5/325 Mg) 1 tab PO Q8H PRN PRN Reason: Pain, moderate (4-7) Last Admin: 08/13/17 11:19 Dose: 1 tab - Labs Labs: 08/13/17 06:30 08/13/17 06:10 - Constitutional Appears: Non-toxic, No Acute Distress - Head Exam Head Exam: ATRAUMATIC, NORMAL INSPECTION, NORMOCEPHALIC - Eye Exam Eye Exam: Normal appearance Additional comments: Decreased vision bilaterally - ENT Exam ENT Exam: Normal Exam - Neck Exam Neck Exam: Normal Inspection - Respiratory Exam Respiratory Exam: Clear to Ausculation Bilateral, NORMAL BREATHING PATTERN - Cardiovascular Exam Cardiovascular Exam: REGULAR RHYTHM, +S1 - GI/Abdominal Exam GI & Abdominal Exam: Distended. absent: Tenderness - Extremities Exam Additional comments: b/l LE wrapped in bob bandages - Neurological Exam Neurological Exam: Alert, Awake, Oriented x3 - Psychiatric Exam Psychiatric exam: Normal Affect, Normal Mood Assessment and Plan - Assessment and Plan (Free Text) Assessment: 87yo M PMH arrhythmia, back pain, BPH who presents with LE lesions likely 2/2 cellulitis r/o osteomyelitis Plan: 1. b/l LE cellulitis - cultures growing: LLE (staph aureus and G- rods), and RLE (G- rods) - blood cxs negative for growth - NO DVT on US - pt remains afebrile w/o leukocytosis - Podiatry consulted - ceftaroline per ID recs - Rocephin and Vancomycin d/c - procal 0.05 - B/L LE MRI: negative for any evidence suggestive of osteomyelitis - LE Arterial US ordered per pods - IR also consulted due to weak pulses b/l LE - ultracet Q8PRN - PT eval 2. hypokalemia-resolved - K is 4.0 - f/u 3. Constipation -miralax given -monitor for Bowel movement 4. stage 1 sacral ulcer - turn patient - apply dressing PRN 5. Social -Greta Paramonte counselled PTX/ heparin Regular Diet <RangasabobbyAjantha - Last Filed: 08/13/17 15:52> Objective - Vital Signs/Intake and Output Vital Signs (last 24 hours): Temp Pulse Resp BP Pulse Ox 98.7 F 67 18 113/75 94 L 08/13/17 09:08 08/13/17 09:08 08/13/17 09:08 08/13/17 09:08 08/13/17 09:08 Intake and Output: 08/13/17 08/13/17 06:59 18:59 Intake Total 540 Output Total 1060 Balance -520 - Medications Medications: Current Medications Heparin Sodium (Porcine) (Heparin) 5,000 units SC Q12 ATA PRN Reason: Protocol Last Admin: 08/13/17 11:17 Dose: 5,000 units Ceftaroline Fosamil 600 mg/ (Sodium Chloride) 100 mls @ 100 mls/hr IVPB Q12 ATA PRN Reason: Protocol Stop: 08/20/17 22:01 Last Admin: 08/13/17 11:18 Dose: 100 mls/hr Ibuprofen (Motrin Tab) 400 mg PO Q6H PRN PRN Reason: Pain, Mild (1-3) Last Admin: 08/13/17 13:38 Dose: 400 mg Mupirocin (Bactroban Ointment) 0 gm TOP DAILY [facility] Last Admin: 08/13/17 11:19 Dose: Not Given Neomycin/Polymyxin/Bacitracin (Neosporin Triple Antibiotic Oint) 0 gm TOP DAILY PRN PRN Reason: Inflammation Pantoprazole Sodium (Protonix Ec Tab) 40 mg PO 0600 [facility] Last Admin: 08/12/17 05:51 Dose: 40 mg Polyethylene Glycol (Miralax) 17 gm PO TID [facility] Tramadol/Acetaminophen (Ultracet 37.5/325 Mg) 1 tab PO Q8H PRN PRN Reason: Pain, moderate (4-7) Last Admin: 08/13/17 11:19 Dose: 1 tab - Labs Labs: 08/13/17 06:30 08/13/17 06:10 Attending/Attestation - Attestation I have personally seen and examined this patient.: Yes I have fully participated in the care of the patient.: Yes I have reviewed all pertinent clinical information, including history, physical exam and plan: Yes Notes (Text): 08/13/17 15:50 Attending note; Patient seen and examined with resident. Patient is a 87 year old male with history of impaired vision, ex tobacco user, suspected BPH s/p surgery few years ago Is admitted for bilateral lower extremity cellulitis. Currently on IV Teflaro. Wound culture is positive for MSSA, Serratia. Venous Doppler is negative for DVT. Significant bilateral SFA, popliteal disease as per arterial Doppler. Will follow-up with vascular surgery. Continue local wound care by podiatry. MRI of the Right lower extremity is negative for osteomyelitis. Patient did not complete left leg MRI. PT evaluation requested. Patient is recommended to go to [facility]. 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 Case discussed with Greta Lowe for advanced directives Upon discharge patient will follow up with PMD of choice.
--- NOTE | 2017-08-13 13:04 | CP.PCM.CON ---
History of Present Illness - History of Present Illness History of Present Illness: Palliative consult requested by Dr Nyasia Duncan Reason: Goals of care 87 year old male with history of who came to the hospital after being urged by friends to seek medical evaluation of worsening leg wounds.The patient has very poor vision and unable to asses the situation. Patient states he has had the wounds for about three weeks.He denied fever, chills,nausea,vomiting, shortness of breath or pain. Blood cultures are negative. Leg cultures positive for Staph , Serratia and Klebsiella. Lower extremities ultrasound showed bilateral distal SFA, popliteal and trifurcation disease. PMHX: right eye blindness, right ear hearing loss, left hip replacement, prostate surgery, spinal infection. Social History: Former smoker, no alcohol or drug use. Lives alone Family History: Non contributory. Advance Care Planning: The patient does not have an Advanced Directive. Review of Systems: As per HPI, all other systems reviewed and are negative. 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", right ear hearing loss - HEMATOLOGICAL/ONCOLOGICAL Hx Cancer: (denies prostate ca) - MUSCULOSKELETAL/RHEUMATOLOGICAL Hx Falls: No - GASTROINTESTINAL Other/Comment: esophagitis, gastritis, gas, uses stool softeners - GENITOURINARY/GYNECOLOGICAL Hx Prostate Problems: Yes (denies ca, had prostate sx 2 months ago) Other/Comment: dribbling since prostate sx when coughing or laughing - PSYCHIATRIC Hx Depression: No Hx Emotional Abuse: No Hx Physical Abuse: No Hx Substance Use: No - SURGICAL HISTORY Other/Comment: left hip replacement 2000 Meds Allergies/Adverse Reactions: Allergies Allergy/AdvReac Type Severity Reaction Status Date / Time No Known Allergies Allergy Verified 08/10/17 14:29 - Medications Medications: Current Medications Heparin Sodium (Porcine) (Heparin) 5,000 units SC Q12 ATA PRN Reason: Protocol Last Admin: 08/13/17 11:17 Dose: 5,000 units Sodium Chloride (Sodium Chloride 0.9%) 1,000 mls @ 100 mls/hr IV .Q10H [facility] Last Admin: 08/11/17 17:52 Dose: 100 mls/hr Ceftaroline Fosamil 600 mg/ (Sodium Chloride) 100 mls @ 100 mls/hr IVPB Q12 [facility] PRN Reason: Protocol Stop: 08/20/17 22:01 Last Admin: 08/13/17 11:18 Dose: 100 mls/hr Ibuprofen (Motrin Tab) 400 mg PO Q6H PRN PRN Reason: Pain, Mild (1-3) Last Admin: 08/11/17 21:20 Dose: 400 mg Mupirocin (Bactroban Ointment) 0 gm TOP DAILY [facility] Last Admin: 08/13/17 11:19 Dose: Not Given Neomycin/Polymyxin/Bacitracin (Neosporin Triple Antibiotic Oint) 0 gm TOP DAILY PRN PRN Reason: Inflammation Pantoprazole Sodium (Protonix Ec Tab) 40 mg PO 0600 [facility] Last Admin: 08/12/17 05:51 Dose: 40 mg Tramadol/Acetaminophen (Ultracet 37.5/325 Mg) 1 tab PO Q8H PRN PRN Reason: Pain, moderate (4-7) Last Admin: 08/13/17 11:19 Dose: 1 tab Physical Exam - Constitutional Appears: No Acute Distress - Head Exam Head Exam: NORMAL INSPECTION - Eye Exam Eye Exam: PERRL - ENT Exam ENT Exam: Mucous Membranes Moist - Neck Exam Neck exam: Positive for: Normal Inspection - Respiratory Exam Respiratory Exam: Clear to Auscultation Bilateral, NORMAL BREATHING PATTERN - Cardiovascular Exam Cardiovascular Exam: REGULAR RHYTHM, +S1, +S2 - GI/Abdominal Exam GI & Abdominal Exam: Normal Bowel Sounds, Soft - Extremities Exam Extremities exam: Positive for: pedal pulses present Additional comments: dressings both lower extremities - Back Exam Back exam: NORMAL INSPECTION - Neurological Exam Neurological exam: Alert Additional comments: oriented to place and self - Skin Skin Exam: Dry, Warm - Additional Findings Additional findings: Palliative performance scale rating 40% Results - Vital Signs Recent Vital Signs: Last Vital Signs Temp 98.7 F 08/13/17 09:08 Pulse 67 08/13/17 09:08 Resp 18 08/13/17 09:08 BP 113/75 08/13/17 09:08 Pulse Ox 94 L 08/13/17 09:08 - Labs Result Diagrams: 08/13/17 06:30 08/13/17 06:10 Labs: Laboratory Results - last 24 hr 08/11/17 08/13/17 08/13/17 07:00 06:10 06:30 WBC 6.7 RBC 3.49 L Hgb 11.1 L Hct 33.5 L MCV 96.0 MCH 31.8 MCHC 33.1 RDW 13.8 Plt Count 268 MPV 9.1 Gran % 65.5 Lymph % (Auto) 20.8 L [place] % (Auto) 9.7 H Eos % (Auto) 3.9 Baso % (Auto) 0.1 Gran # 4.38 Lymph # 1.4 [place] # 0.7 H Eos # 0.3 Baso # 0.01 Sodium 138 Potassium 4.0 Chloride 107 Carbon Dioxide 29 Anion Gap 6 L BUN 16 Creatinine 1.0 Est GFR ( Amer) > 60 Est GFR (Non-Af Amer) > 60 Random Glucose 90 Hemoglobin A1c 6.3 Calcium 8.1 L Total Bilirubin 0.4 AST 25 ALT 29 Alkaline Phosphatase 75 Total Protein 5.6 L Albumin 2.6 L Globulin 3.0 Albumin/Globulin Ratio 0.9 L Assessment & Plan - Assessment and Plan (Free Text) Assessment: 87 year old male admitted with bilateral cellulitis of lower extremities. The patient is alert and oriented, although somewhat eccentric. His a poor historian. He understands that he is hospitalized because of infection in both his lower extremities.He states that his friend had been telling him to seek medical attention. He admits to be stubborn at times. He likes his independent and states his friends help him with shopping and other errands when needed. He does not have a Living Will nor does he have a POA. I discussed advance care planning specific to resuscitation status. The patient states that he would consider CPR /intubation but would not want to be keep in a vegetative state/terminal state. When asked if he would consider appointing a health care surrogate, he stated that he " did not trust anyone to make those decisions". Encouraged him to appoint a friend who he could disuse his wishes with in advance. I offered to assist him in this process. He did not want to complete a directive today, stating he wants to think things through. Time spent in goals of care and advance care planning discussion, 20 minutes Plan: Palliative support Advance care planning
[2017-08-13] MEDS: POLYETHYLENE GLYCOL 3350 17 GM/Dose PACKET PO SCH ×2 (14:00→18:27)
--- NOTE | 2017-08-13 14:05 | CP.PCM.PN ---
Subjective - Date & Time of Evaluation Date of Evaluation: 08/13/17 Time of Evaluation: 10:50 - Subjective Subjective: Comfortable, less pain in the legs, no fevers overnight. Objective - Vital Signs/Intake and Output Vital Signs (last 24 hours): Temp Pulse Resp BP Pulse Ox 98.7 F 67 18 113/75 94 L 08/13/17 09:08 08/13/17 09:08 08/13/17 09:08 08/13/17 09:08 08/13/17 09:08 Intake and Output: 08/13/17 08/13/17 06:59 18:59 Intake Total 540 Output Total 1060 Balance -520 - Medications Medications: Current Medications Heparin Sodium (Porcine) (Heparin) 5,000 units SC Q12 [facility] PRN Reason: Protocol Last Admin: 08/12/17 21:05 Dose: 5,000 units Sodium Chloride (Sodium Chloride 0.9%) 1,000 mls @ 100 mls/hr IV .Q10H [facility] Last Admin: 08/11/17 17:52 Dose: 100 mls/hr Ceftaroline Fosamil 600 mg/ (Sodium Chloride) 100 mls @ 100 mls/hr IVPB Q12 [facility] PRN Reason: Protocol Stop: 08/20/17 22:01 Last Admin: 08/12/17 22:48 Dose: 100 mls/hr Ibuprofen (Motrin Tab) 400 mg PO Q6H PRN PRN Reason: Pain, Mild (1-3) Last Admin: 08/11/17 21:20 Dose: 400 mg Mupirocin (Bactroban Ointment) 0 gm TOP DAILY [facility] Last Admin: 08/12/17 09:26 Dose: Not Given Neomycin/Polymyxin/Bacitracin (Neosporin Triple Antibiotic Oint) 0 gm TOP DAILY PRN PRN Reason: Inflammation Pantoprazole Sodium (Protonix Ec Tab) 40 mg PO 0600 [facility] Last Admin: 08/12/17 05:51 Dose: 40 mg Tramadol/Acetaminophen (Ultracet 37.5/325 Mg) 1 tab PO Q8H PRN PRN Reason: Pain, moderate (4-7) Last Admin: 08/12/17 20:44 Dose: 1 tab - Labs Labs: 08/13/17 06:30 08/13/17 06:10 - Constitutional Appears: Non-toxic - Head Exam Head Exam: NORMAL INSPECTION - ENT Exam ENT Exam: Mucous Membranes Moist - Neck Exam Neck Exam: absent: Meningismus - Respiratory Exam Respiratory Exam: Decreased Breath Sounds - Cardiovascular Exam Cardiovascular Exam: +S1, +S2 - GI/Abdominal Exam GI & Abdominal Exam: Soft. absent: Tenderness - Extremities Exam Additional comments: both legs with dressings in place Assessment and Plan - Assessment and Plan (Free Text) Plan: Assessment bilateral lower extremity cellulitis, growing MSSA, Serratia and Klebsiella history of cardiac arrhythmia and syncope history of prostate infection S/P prostate surgery gastritis and duodenitis Plan Continue Teflaro day 3; MRI of right leg does not show osteomyelitis; follow up vascular work up will monitor clinically
--- NOTE | 2017-08-13 15:19 | CP.PCM.PN ---
<Dell,Mark - Last Filed: 08/13/17 15:54> Subjective - Date & Time of Evaluation Date of Evaluation: 08/13/17 Time of Evaluation: 15:14 - Subjective Subjective: Patient is an 87 year old male seen at bedside for multiple ulcerations b/l. Patient states that he has recently been experiencing right heel pain as well describing the pain as if his heel was being rubbed with sand paper. Patient is noted to be wearing multipodus boots b/l. Patient denies any new complaints to the ulcers of both of his legs. He states that his pain is controlled. Patient denies any further pedal complaints at this time. Patient denies N/V/F/C/CP/SOB Objective - Vital Signs/Intake and Output Vital Signs (last 24 hours): Temp Pulse Resp BP Pulse Ox 98.7 F 67 18 113/75 94 L 08/13/17 09:08 08/13/17 09:08 08/13/17 09:08 08/13/17 09:08 08/13/17 09:08 Intake and Output: 08/13/17 08/13/17 06:59 18:59 Intake Total 540 Output Total 1060 Balance -520 - Medications Medications: Current Medications Heparin Sodium (Porcine) (Heparin) 5,000 units SC Q12 [facility] PRN Reason: Protocol Last Admin: 08/13/17 11:17 Dose: 5,000 units Ceftaroline Fosamil 600 mg/ (Sodium Chloride) 100 mls @ 100 mls/hr IVPB Q12 [facility] PRN Reason: Protocol Stop: 08/20/17 22:01 Last Admin: 08/13/17 11:18 Dose: 100 mls/hr Ibuprofen (Motrin Tab) 400 mg PO Q6H PRN PRN Reason: Pain, Mild (1-3) Last Admin: 08/13/17 13:38 Dose: 400 mg Mupirocin (Bactroban Ointment) 0 gm TOP DAILY [facility] Last Admin: 08/13/17 11:19 Dose: Not Given Neomycin/Polymyxin/Bacitracin (Neosporin Triple Antibiotic Oint) 0 gm TOP DAILY PRN PRN Reason: Inflammation Pantoprazole Sodium (Protonix Ec Tab) 40 mg PO 0600 [facility] Last Admin: 08/12/17 05:51 Dose: 40 mg Polyethylene Glycol (Miralax) 17 gm PO TID [facility] Tramadol/Acetaminophen (Ultracet 37.5/325 Mg) 1 tab PO Q8H PRN PRN Reason: Pain, moderate (4-7) Last Admin: 08/13/17 11:19 Dose: 1 tab - Labs Labs: 08/13/17 06:30 08/13/17 06:10 - Constitutional Appears: Well, Non-toxic, No Acute Distress - Extremities Exam Additional comments: Vasc: nonpalpabe DP and PT pulses, +2 nonpitting lower extremity edema bilaterally, temperature gradient is WNL, CFT <4 seconds noted to the digitals Ortho: MM is 3/5 in all four compartments secondary to age, severe pain with palpation to the ulceration sites bilaterally Neuro: gross and protective sensation diminished bilaterally Derm: lower extremity skin noted to be thin, shiny and discolored. Ulcerations noted to the posterior mid right leg, anterior mid right leg and lateral lower left leg with similiar presentation. Wound base are mixture granular and fibrotic. Erythema noted to periwound area. No purulence, no undermining, no tunneling, no probe to bone, minimal serous drainage. No open lesions, wounds, bruising, maceration, xerosis noted to posterior heels b/l. Right posterior heel displays evidence of possible past heel ulcer. - Neurological Exam Neurological Exam: Alert, Awake, Oriented x3 - Psychiatric Exam Psychiatric exam: Normal Affect, Normal Mood Assessment and Plan - Assessment and Plan (Free Text) Assessment: 87 year old male seen at bedside for multiple ulcerations of b/l legs and heel pain to right heel Plan: Patient seen and evaluated with attending Dr. Jang at bedside Charts, labs and vitals reviewed: WBC 6.7, afebrile Wounds cleansed with saline and dressed wtih maxorb, and optifoam Optifoam padding placed on posterior right heel and multipodus boots reapplied Continue abx per ID Wound cx results 08/11: Left leg- Staph aureus, serratia marcescens, klebsiella oxytoca; right leg - Staph aureus, serratia marcescens, klebsiella oxytoca 08/10 Extremity ultrasound: No evidence of DVT b/l 08/10 foot xray: Diffuse osteopenia, calcification of soft tissue 08/10 tib/fib xray: Osteoporosis 08/11 LE ultrasound: Moderately abnormal ABIs at rest, b/l distal SFA, popliteal and/or trifurcation disease 08/12 LE MRI: No abscess, no OM Continue with multipodus boots Continue PT Podiatry will continue to follow while patient in house <Jo Ann Jang - Last Filed: 08/14/17 20:55> Objective - Vital Signs/Intake and Output Vital Signs (last 24 hours): Temp Pulse Resp BP Pulse Ox 97.8 F 63 20 152/78 H 99 08/14/17 08:15 08/14/17 08:15 08/14/17 08:15 08/14/17 08:15 08/14/17 08:15 Intake and Output: 08/14/17 08/15/17 18:59 06:59 Intake Total 900 Output Total 300 Balance 600 - Labs Labs: 08/14/17 05:50 08/14/17 05:50 Attending/Attestation - Attestation I have personally seen and examined this patient.: Yes I have fully participated in the care of the patient.: Yes I have reviewed all pertinent clinical information, including history, physical exam and plan: Yes
[2017-08-13 16:24] VITALS: O2SAT 99
--- NOTE | 2017-08-13 22:11 | CON ---
DATE: 08/13/2017 TIME: 5:45 p.m. CHIEF COMPLAINT/HISTORY OF PRESENT ILLNESS: Mr. Zavala is an 87-year-old gentleman who is a poor historian. He lives alone and is nearly blind. He has progressive ulcerations of his lower extremities for the past 3 weeks. He denies fever, sweats or chills. He notes some pain, but it does not keep him up at night. He was admitted through the ER. His YESENIA/PVR exam demonstrates bilateral distal SFA, popliteal and/or trifurcation disease. His ABIs are moderately abnormal, right 0.54 and left 0.63. PHYSICAL EXAMINATION EXTREMITIES: He has easily palpable femoral and popliteal pulses. His pedal pulses are absent. His feet are warm. There are superficial ulcerations noted in the tibial area and posterior calves bilaterally. No gangrene is noted. LABORATORY DATA: An MRI of the right leg was negative for osteomyelitis or abscess. ASSESSMENT AND PLAN: I spoke with Dr. Lewis. Initially, these wounds will be treated conservatively. If they deteriorate or do not improve as expected, an arteriogram can be performed at that time. I agree with his transfer to [facility] and physical therapy/ambulation. Joe Jules MD MTDD
[2017-08-14] MEDS: Pantoprazole 40 mg EC Tab PO SCH (05:54)
[2017-08-14 06:21] LABS: BASO # 0.01 K/mm3 (0.0-2.0); BASO % 0.1 % (0.0-3.0); EOS # 0.3 (0.0-0.7); EOS % 3.8 % (1.5-5.0); GRAN # 6.62 (1.4-6.5); GRAN % 74.6 % (50.0-68.0); HEMATOCRIT 38.3 % (42.0-52.0); LYMPH # 1.1 (1.2-3.4); LYMPH % 12.8 % (22.0-35.0); MEAN CELL VOLUME 96.7 fl (80.0-105.0); MEAN CORPUSCULAR HEMOGLOBIN 31.8 pg (25.0-35.0); MEAN CORPUSCULAR HGB CONC 32.9 g/dl (31.0-37.0); MEAN PLATELET VOLUME 9.2 fl (7.0-11.0); MONO # 0.8 (0.1-0.6); MONO % 8.7 % (1.0-6.0); RED CELL DISTRIBUTION WIDTH 13.5 % (11.5-14.5); WHITE BLOOD COUNT 8.9 10^3/ul (4.5-11.0)
[2017-08-14 06:37] LABS: ALB/GLOB RATIO 0.9 (1.1-1.8); ALKALINE PHOSPHATASE 96 U/L (38-126); ALT/SGPT 33 U/L (7-56); AST/SGOT 31 U/L (17-59); BILIRUBIN,TOTAL 0.5 mg/dL (0.2-1.3); BLOOD UREA NITROGEN 16 mg/dL (7-21); CALCIUM 8.8 mg/dL (8.4-10.5); CARBON DIOXIDE 30 mmol/L (21-33); CHLORIDE 102 mmol/L (95-110); GFR AFRICAN-AMERICAN > 60; GLUCOSE,RANDOM 93 mg/dL (70-110); POTASSIUM 4.3 mmol/L (3.6-5.0); SODIUM 137 mmol/L (132-148); TOTAL PROTEIN 6.5 g/dL (5.8-8.3)
[2017-08-14 08:16] VITALS: BP 152/78; PULSE 63; RESP 20; TEMP 97.8
[2017-08-14] MEDS: POLYETHYLENE GLYCOL 3350 17 GM/Dose PACKET PO SCH ×2 (10:58→13:02)
[2017-08-14] MEDS: Ceftaroline 600 MG in Sodium Chloride 0.9% 100 ML IVPB SCH (11:05)
--- NOTE | 2017-08-14 13:02 | CP.PCM.DIS ---
<Armond Cota - Last Filed: 08/14/17 14:56> Provider - Provider Date of Admission: 08/10/17 17:00 Attending physician: Ekaterina Duncan MD Consults: Infectious Disease Time Spent in preparation of Discharge (in minutes): 70 Hospital Course - Lab Results Lab Results: Micro Results 08/11/17 10:00 Leg - Left Gram Stain - Final 08/11/17 10:00 Leg - Left Wound Culture - Final Staphylococcus Aureus Serratia Marcescens Klebsiella Oxytoca 08/10/17 19:02 Urine Urine Culture - Final 10-50,000 CFU/ML. MULTIPLE SPECIES. PROBABLE CONTAMINATION. Most Recent Lab Values WBC 8.9 10^3/ul (4.5-11.0) D 08/14/17 05:50 RBC 3.96 10^6/uL (3.5-6.1) 08/14/17 05:50 Hgb 12.6 g/dL (14.0-18.0) L 08/14/17 05:50 Hct 38.3 % (42.0-52.0) L 08/14/17 05:50 MCV 96.7 fl (80.0-105.0) 08/14/17 05:50 MCH 31.8 pg (25.0-35.0) 08/14/17 05:50 MCHC 32.9 g/dl (31.0-37.0) 08/14/17 05:50 RDW 13.5 % (11.5-14.5) 08/14/17 05:50 Plt Count 289 10^3/uL (120.0-450.0) 08/14/17 05:50 MPV 9.2 fl (7.0-11.0) 08/14/17 05:50 Gran % 74.6 % (50.0-68.0) H 08/14/17 05:50 Lymph % (Auto) 12.8 % (22.0-35.0) L 08/14/17 05:50 Sac % (Auto) 8.7 % (1.0-6.0) H 08/14/17 05:50 Eos % (Auto) 3.8 % (1.5-5.0) 08/14/17 05:50 Baso % (Auto) 0.1 % (0.0-3.0) 08/14/17 05:50 Gran # 6.62 (1.4-6.5) H 08/14/17 05:50 Lymph # 1.1 (1.2-3.4) L 08/14/17 05:50 Sac # 0.8 (0.1-0.6) H 08/14/17 05:50 Eos # 0.3 (0.0-0.7) 08/14/17 05:50 Baso # 0.01 K/mm3 (0.0-2.0) 08/14/17 05:50 ESR 80 mm/hr (0.00-15.0) H 08/11/17 07:00 Sodium 137 mmol/L (132-148) 08/14/17 05:50 Potassium 4.3 mmol/L (3.6-5.0) 08/14/17 05:50 Chloride 102 mmol/L (95-110) 08/14/17 05:50 Carbon Dioxide 30 mmol/L (21-33) 08/14/17 05:50 Anion Gap 9 (10-20) L 08/14/17 05:50 BUN 16 mg/dL (7-21) 08/14/17 05:50 Creatinine 0.9 mg/dL (0.8-1.5) 08/14/17 05:50 Est GFR ( Amer) > 60 08/14/17 05:50 Est GFR (Non-Af Amer) > 60 08/14/17 05:50 Random Glucose 93 mg/dL (70-110) 08/14/17 05:50 Hemoglobin A1c 6.3 % (4.2-6.5) 08/11/17 07:00 Lactic Acid 0.8 mmol/L (0.7-2.1) 08/11/17 07:30 Calcium 8.8 mg/dL (8.4-10.5) 08/14/17 05:50 Total Bilirubin 0.5 mg/dL (0.2-1.3) 08/14/17 05:50 AST 31 U/L (17-59) 08/14/17 05:50 ALT 33 U/L (7-56) 08/14/17 05:50 Alkaline Phosphatase 96 U/L (38-126) 08/14/17 05:50 Lactate Dehydrogenase 571 U/L (333-699) 08/10/17 16:10 Total Creatine Kinase 215 U/L (35-230) 08/10/17 16:10 Troponin I < 0.01 ng/mL 08/10/17 16:10 C-React Prot High Sens > 15.00 mg/L (1.00-3.00) H 08/11/17 07:00 NT-Pro-B Natriuret Pep 178 pg/mL (0-450) 08/10/17 16:10 Total Protein 6.5 g/dL (5.8-8.3) 08/14/17 05:50 Albumin 3.2 g/dL (3.0-4.8) 08/14/17 05:50 Globulin 3.4 gm/dL 08/14/17 05:50 Albumin/Globulin Ratio 0.9 (1.1-1.8) L 08/14/17 05:50 Procalcitonin 0.05 NG/ML (0.19-0.49) L 08/11/17 07:00 - Hospital Course Hospital Course: 87 year old man with mostly unknown past medical history presents to the hospital on the advice of his friends because of "worsening wounds" on his legs. Patient states they appeared about 3 weeks ago and he tried to get in contact with a application support technician without any luck. Over the past couple days it had gotten worse, so his friends told him to come to the emergency department. Patient was admitted and treated for cellulitis. Blood work was done, electrolytes were monitored and repleted as needed. Blood, urine and wound cultures were drawn. US of the lower extremities was done. ID consulted and patient started on antibiotics. MRI of the lower extremity was also done to rule out osteomyelitis. Patients stage 1 ulcer was cleaned and dressing was applied. Patient was counselled on going to a fpc. Patient agreed and he was accepted to [facility] and transferred there today. Patient was given prescriptions for new PO antibiotics to continue and finish the course. Discharge Exam - Head Exam Head Exam: ATRAUMATIC, NORMAL INSPECTION, NORMOCEPHALIC - Eye Exam Eye Exam: Normal appearance - Respiratory Exam Respiratory Exam: Clear to PA & Lateral, NORMAL BREATHING PATTERN, UNREMARKABLE - Cardiovascular Exam Cardiovascular Exam: REGULAR RHYTHM, +S1, +S2 - GI/Abdominal Exam GI & Abdominal Exam: Normal Bowel Sounds, Unremarkable. absent: Distended - Extremities Exam Extremities exam: pedal pulses present Additional comments: healing wound bilaterally on lower extremities - Neurological Exam Neurological exam: Alert, Oriented x3 - Psychiatric Exam Psychiatric exam: Normal Affect - Skin Skin Exam: Normal Color, Warm Discharge Plan - Discharge Medications Prescriptions: Cefpodoxime [Vantin] 200 mg PO BID 7 Days #14 tab Doxycycline Hyclate 100 mg PO BID 7 Days #14 capsule - Follow Up Plan Condition: FAIR Disposition: TRANSF TO [facility] Instructions: Cellulitis (GEN) Additional Instructions: 1. Follow up with PMD DR. Yuri Ellsworth in [place]. [facility]. 2. Continue wound care. 3. Follow up with adjunct political science instructor. 4. Follow up with Dr. Joe Jules vascular surgery if wound healing is impaired. <Ekaterina Duncan - Last Filed: 08/14/17 18:00> Provider - Provider Date of Admission: 08/10/17 17:00 Attending physician: Ekaterina Duncan MD Hospital Course - Lab Results Lab Results: Micro Results 08/11/17 10:00 Leg - Left Gram Stain - Final 08/11/17 10:00 Leg - Left Wound Culture - Final Staphylococcus Aureus Serratia Marcescens Klebsiella Oxytoca 08/10/17 19:02 Urine Urine Culture - Final 10-50,000 CFU/ML. MULTIPLE SPECIES. PROBABLE CONTAMINATION. Most Recent Lab Values WBC 8.9 10^3/ul (4.5-11.0) D 08/14/17 05:50 RBC 3.96 10^6/uL (3.5-6.1) 08/14/17 05:50 Hgb 12.6 g/dL (14.0-18.0) L 08/14/17 05:50 Hct 38.3 % (42.0-52.0) L 08/14/17 05:50 MCV 96.7 fl (80.0-105.0) 08/14/17 05:50 MCH 31.8 pg (25.0-35.0) 08/14/17 05:50 MCHC 32.9 g/dl (31.0-37.0) 08/14/17 05:50 RDW 13.5 % (11.5-14.5) 08/14/17 05:50 Plt Count 289 10^3/uL (120.0-450.0) 08/14/17 05:50 MPV 9.2 fl (7.0-11.0) 08/14/17 05:50 Gran % 74.6 % (50.0-68.0) H 08/14/17 05:50 Lymph % (Auto) 12.8 % (22.0-35.0) L 08/14/17 05:50 Sac % (Auto) 8.7 % (1.0-6.0) H 08/14/17 05:50 Eos % (Auto) 3.8 % (1.5-5.0) 08/14/17 05:50 Baso % (Auto) 0.1 % (0.0-3.0) 08/14/17 05:50 Gran # 6.62 (1.4-6.5) H 08/14/17 05:50 Lymph # 1.1 (1.2-3.4) L 08/14/17 05:50 Sac # 0.8 (0.1-0.6) H 08/14/17 05:50 Eos # 0.3 (0.0-0.7) 08/14/17 05:50 Baso # 0.01 K/mm3 (0.0-2.0) 08/14/17 05:50 ESR 80 mm/hr (0.00-15.0) H 08/11/17 07:00 Sodium 137 mmol/L (132-148) 08/14/17 05:50 Potassium 4.3 mmol/L (3.6-5.0) 08/14/17 05:50 Chloride 102 mmol/L (95-110) 08/14/17 05:50 Carbon Dioxide 30 mmol/L (21-33) 08/14/17 05:50 Anion Gap 9 (10-20) L 08/14/17 05:50 BUN 16 mg/dL (7-21) 08/14/17 05:50 Creatinine 0.9 mg/dL (0.8-1.5) 08/14/17 05:50 Est GFR ( Amer) > 60 08/14/17 05:50 Est GFR (Non-Af Amer) > 60 08/14/17 05:50 Random Glucose 93 mg/dL (70-110) 08/14/17 05:50 Hemoglobin A1c 6.3 % (4.2-6.5) 08/11/17 07:00 Lactic Acid 0.8 mmol/L (0.7-2.1) 08/11/17 07:30 Calcium 8.8 mg/dL (8.4-10.5) 08/14/17 05:50 Total Bilirubin 0.5 mg/dL (0.2-1.3) 08/14/17 05:50 AST 31 U/L (17-59) 08/14/17 05:50 ALT 33 U/L (7-56) 08/14/17 05:50 Alkaline Phosphatase 96 U/L (38-126) 08/14/17 05:50 Lactate Dehydrogenase 571 U/L (333-699) 08/10/17 16:10 Total Creatine Kinase 215 U/L (35-230) 08/10/17 16:10 Troponin I < 0.01 ng/mL 08/10/17 16:10 C-React Prot High Sens > 15.00 mg/L (1.00-3.00) H 08/11/17 07:00 NT-Pro-B Natriuret Pep 178 pg/mL (0-450) 08/10/17 16:10 Total Protein 6.5 g/dL (5.8-8.3) 08/14/17 05:50 Albumin 3.2 g/dL (3.0-4.8) 08/14/17 05:50 Globulin 3.4 gm/dL 08/14/17 05:50 Albumin/Globulin Ratio 0.9 (1.1-1.8) L 08/14/17 05:50 Procalcitonin 0.05 NG/ML (0.19-0.49) L 08/11/17 07:00 Attending/Attestation - Attestation I have personally seen and examined this patient.: Yes I have fully participated in the care of the patient.: Yes I have reviewed all pertinent clinical information, including history, physical exam and plan: Yes Notes (Text): 08/14/17 17:56 Attending note; Patient seen and examined with resident. Patient is a 87 year old male with history of impaired vision, ex tobacco user, suspected BPH s/p surgery few years ago Is admitted for bilateral lower extremity cellulitis. Treated with IV Teflaro. Wound culture is positive for MSSA, Serratia. Venous Doppler is negative for DVT. Significant bilateral SFA, popliteal disease as per arterial Doppler. seen by Dr. Joe Jules. Patient will follow-up with Dr. Jules as outpatient. Continue local wound care by podiatry. MRI of the Right lower extremity is negative for osteomyelitis. PT evaluation appreciated. central office worker evaluation appreciated. Transfer to [facility]. Case endorsed to Dr. Yuri humphries. Patient refused to do advanced directives or appoint POA. Diagnosis; Bilateral lower extremity cellulitis Peripheral vascular disease History of smoking Impaired vision
--- NOTE | 2017-08-14 13:04 | CP.PCM.PN ---
Subjective - Date & Time of Evaluation Date of Evaluation: 08/14/17 Time of Evaluation: 11:20 - Subjective Subjective: Comfortable, no fevers overnight. Objective - Vital Signs/Intake and Output Vital Signs (last 24 hours): Temp Pulse Resp BP Pulse Ox 97.8 F 63 20 152/78 H 99 08/14/17 08:15 08/14/17 08:15 08/14/17 08:15 08/14/17 08:15 08/14/17 08:15 Intake and Output: 08/14/17 08/14/17 06:59 18:59 Intake Total 360 120 Output Total 159 300 Balance 201 -180 - Medications Medications: Current Medications Heparin Sodium (Porcine) (Heparin) 5,000 units SC Q12 ATA PRN Reason: Protocol Last Admin: 08/13/17 21:46 Dose: 5,000 units Ceftaroline Fosamil 600 mg/ (Sodium Chloride) 100 mls @ 100 mls/hr IVPB Q12 ATA PRN Reason: Protocol Stop: 08/20/17 22:01 Last Admin: 08/13/17 21:46 Dose: 100 mls/hr Ibuprofen (Motrin Tab) 400 mg PO Q6H PRN PRN Reason: Pain, Mild (1-3) Last Admin: 08/13/17 13:38 Dose: 400 mg Mupirocin (Bactroban Ointment) 0 gm TOP DAILY [facility] Last Admin: 08/13/17 11:19 Dose: Not Given Neomycin/Polymyxin/Bacitracin (Neosporin Triple Antibiotic Oint) 0 gm TOP DAILY PRN PRN Reason: Inflammation Pantoprazole Sodium (Protonix Ec Tab) 40 mg PO 0600 [facility] Last Admin: 08/14/17 05:54 Dose: 40 mg Polyethylene Glycol (Miralax) 17 gm PO TID [facility] Last Admin: 08/13/17 18:27 Dose: 17 gm Tramadol/Acetaminophen (Ultracet 37.5/325 Mg) 1 tab PO Q8H PRN PRN Reason: Pain, moderate (4-7) Last Admin: 08/13/17 11:19 Dose: 1 tab - Labs Labs: 08/14/17 05:50 08/14/17 05:50 - Constitutional Appears: Non-toxic, No Acute Distress - Head Exam Head Exam: NORMAL INSPECTION - ENT Exam ENT Exam: Mucous Membranes Moist - Neck Exam Neck Exam: absent: Meningismus - Respiratory Exam Respiratory Exam: Decreased Breath Sounds - Cardiovascular Exam Cardiovascular Exam: +S1, +S2 - GI/Abdominal Exam GI & Abdominal Exam: Soft. absent: Tenderness Assessment and Plan - Assessment and Plan (Free Text) Plan: Assessment bilateral lower extremity cellulitis, growing MSSA, Serratia and Klebsiella history of cardiac arrhythmia and syncope history of prostate infection S/P prostate surgery gastritis and duodenitis Plan on Teflaro day 4; MRI of right leg does not show osteomyelitis; follow up vascular work up - can be switched to PO Doxycycline and Cefpodoxime to complete the 7-10 day treatment
--- NOTE | 2017-08-14 14:02 | CP.PCM.PN ---
<Leander Sharpe - Last Filed: 08/14/17 14:37> Subjective - Date & Time of Evaluation Date of Evaluation: 08/14/17 Time of Evaluation: 13:59 - Subjective Subjective: Patient is an 87 year old male seen at bedside for multiple b/l leg wounds. Patient is AAO x 2 and NAD resting comfortably in bed. Per nursing no acute overnight events. Per nursing patient will be DC'd to [place] later today. Patient denies any new pedal complaints since yesterday. Objective - Vital Signs/Intake and Output Vital Signs (last 24 hours): Temp Pulse Resp BP Pulse Ox 97.8 F 63 20 152/78 H 99 08/14/17 08:15 08/14/17 08:15 08/14/17 08:15 08/14/17 08:15 08/14/17 08:15 Intake and Output: 08/14/17 08/14/17 06:59 18:59 Intake Total 360 120 Output Total 159 300 Balance 201 -180 - Medications Medications: Current Medications Heparin Sodium (Porcine) (Heparin) 5,000 units SC Q12 ATA PRN Reason: Protocol Last Admin: 08/14/17 10:58 Dose: 5,000 units Ceftaroline Fosamil 600 mg/ (Sodium Chloride) 100 mls @ 100 mls/hr IVPB Q12 ATA PRN Reason: Protocol Stop: 08/20/17 22:01 Last Admin: 08/14/17 11:05 Dose: 100 mls/hr Ibuprofen (Motrin Tab) 400 mg PO Q6H PRN PRN Reason: Pain, Mild (1-3) Last Admin: 08/13/17 13:38 Dose: 400 mg Mupirocin (Bactroban Ointment) 0 gm TOP DAILY [facility] Last Admin: 08/14/17 10:57 Dose: Not Given Neomycin/Polymyxin/Bacitracin (Neosporin Triple Antibiotic Oint) 0 gm TOP DAILY PRN PRN Reason: Inflammation Pantoprazole Sodium (Protonix Ec Tab) 40 mg PO 0600 [facility] Last Admin: 08/14/17 05:54 Dose: 40 mg Polyethylene Glycol (Miralax) 17 gm PO TID [facility] Last Admin: 08/14/17 13:02 Dose: Not Given Tramadol/Acetaminophen (Ultracet 37.5/325 Mg) 1 tab PO Q8H PRN PRN Reason: Pain, moderate (4-7) Last Admin: 08/13/17 11:19 Dose: 1 tab - Labs Labs: 08/14/17 05:50 08/14/17 05:50 - Constitutional Appears: Well, Non-toxic, No Acute Distress - Extremities Exam Additional comments: Vasc: nonpalpabe DP and PT pulses, +2 nonpitting lower extremity edema bilaterally, temperature gradient is WNL, CFT <4 seconds noted to the digits Ortho: MM is 3/5 in all four compartments secondary to age, severe pain with palpation to the ulceration sites bilaterally Neuro: gross and protective sensation diminished bilaterally Derm: lower extremity skin noted to be thin, shiny and discolored. Ulcerations noted to the posterior mid right leg, anterior mid right leg and lateral lower left leg with similiar presentation. Wound base are mixture granular and fibrotic. Erythema noted to periwound area. No purulence, no undermining, no tunneling, no probe to bone, minimal serous drainage with yellow-green tinge. No open lesions, wounds, bruising, maceration, xerosis noted to posterior heels b/l. Right posterior heel is covered with optifoam for padding. - Neurological Exam Neurological Exam: Alert, Awake, Oriented x3 - Psychiatric Exam Psychiatric exam: Normal Affect, Normal Mood Assessment and Plan - Assessment and Plan (Free Text) Assessment: 87 year old male seen at bedside for multiple ulcerations of b/l legs and heel pain to right heel Plan: Patient seen and evaluated at bedside Charts, labs and vitals reviewed: WBC 6.7, afebrile Plan discussed in depth with attending Dr. Jang Wounds cleansed with saline and dressed wtih maxorb and optifoam Optifoam padding placed on posterior right heel and multipodus boots reapplied Continue abx per ID Wound cx results 08/11: Left leg- Staph aureus, serratia marcescens, klebsiella oxytoca; right leg - Staph aureus, serratia marcescens, klebsiella oxytoca 08/10 Extremity ultrasound: No evidence of DVT b/l 08/10 foot xray: Diffuse osteopenia, calcification of soft tissue 08/10 tib/fib xray: Osteoporosis 08/11 LE ultrasound: Moderately abnormal ABIs at rest, b/l distal SFA, popliteal and/or trifurcation disease 08/12 LE MRI: No abscess, no OM Continue with multipodus boots Continue PT Podiatry will continue to follow while patient in house Upon discharge to [facility] patient will be seen by Dr. Lewis for continued podiatric care <Jo Ann Jang - Last Filed: 08/14/17 20:58> Objective - Vital Signs/Intake and Output Vital Signs (last 24 hours): Temp Pulse Resp BP Pulse Ox 97.8 F 63 20 152/78 H 99 08/14/17 08:15 08/14/17 08:15 08/14/17 08:15 08/14/17 08:15 08/14/17 08:15 Intake and Output: 08/14/17 08/15/17 18:59 06:59 Intake Total 900 Output Total 300 Balance 600 - Labs Labs: 08/14/17 05:50 08/14/17 05:50 Attending/Attestation - Attestation I have personally seen and examined this patient.: Yes I have fully participated in the care of the patient.: Yes I have reviewed all pertinent clinical information, including history, physical exam and plan: Yes
--- NOTE | 2017-08-14 14:08 | CP.PCM.PN ---
Subjective - Date & Time of Evaluation Date of Evaluation: 08/14/17 Time of Evaluation: 11:00 - Subjective Subjective: Awake, alert, offers no complaints Objective - Vital Signs/Intake and Output Vital Signs (last 24 hours): Temp Pulse Resp BP Pulse Ox 97.8 F 63 20 152/78 H 99 08/14/17 08:15 08/14/17 08:15 08/14/17 08:15 08/14/17 08:15 08/14/17 08:15 Intake and Output: 08/14/17 08/14/17 06:59 18:59 Intake Total 360 120 Output Total 159 300 Balance 201 -180 - Medications Medications: Current Medications Heparin Sodium (Porcine) (Heparin) 5,000 units SC Q12 ATA PRN Reason: Protocol Last Admin: 08/14/17 10:58 Dose: 5,000 units Ceftaroline Fosamil 600 mg/ (Sodium Chloride) 100 mls @ 100 mls/hr IVPB Q12 ATA PRN Reason: Protocol Stop: 08/20/17 22:01 Last Admin: 08/14/17 11:05 Dose: 100 mls/hr Ibuprofen (Motrin Tab) 400 mg PO Q6H PRN PRN Reason: Pain, Mild (1-3) Last Admin: 08/13/17 13:38 Dose: 400 mg Mupirocin (Bactroban Ointment) 0 gm TOP DAILY [facility] Last Admin: 08/14/17 10:57 Dose: Not Given Neomycin/Polymyxin/Bacitracin (Neosporin Triple Antibiotic Oint) 0 gm TOP DAILY PRN PRN Reason: Inflammation Pantoprazole Sodium (Protonix Ec Tab) 40 mg PO 0600 [facility] Last Admin: 08/14/17 05:54 Dose: 40 mg Polyethylene Glycol (Miralax) 17 gm PO TID [facility] Last Admin: 08/14/17 13:02 Dose: Not Given Tramadol/Acetaminophen (Ultracet 37.5/325 Mg) 1 tab PO Q8H PRN PRN Reason: Pain, moderate (4-7) Last Admin: 08/13/17 11:19 Dose: 1 tab - Labs Labs: 08/14/17 05:50 08/14/17 05:50 - Constitutional Appears: Chronically Ill - Eye Exam Eye Exam: Normal appearance - ENT Exam ENT Exam: Mucous Membranes Moist - Neck Exam Neck Exam: Normal Inspection - Respiratory Exam Respiratory Exam: Clear to Ausculation Bilateral, NORMAL BREATHING PATTERN - Cardiovascular Exam Cardiovascular Exam: REGULAR RHYTHM, +S1, +S2 - GI/Abdominal Exam GI & Abdominal Exam: Soft, Normal Bowel Sounds - Extremities Exam Additional comments: lower extremities bandaged - Back Exam Back Exam: NORMAL INSPECTION - Neurological Exam Neurological Exam: Alert - Skin Skin Exam: Dry, Warm Assessment and Plan - Assessment and Plan (Free Text) Assessment: 87 year old male who was admitted with PVD, celluitis of both lower extremities The patient is alert, somewhat agitated. He is concerned about going to [facility]. He is worried that his friends will not no where he is and that his rent will not be paid. Raquel AGUIRRE Green also spoke with patient and reassured him that she and the [facility] facility will assist with resolving rent issue. The patient is not willing to do a Living Will or appoint a health care surrogate at this time. Time spent in advance care panning discussion 20 minutes Plan: Advance care planning Palliative support
== END 2017-08-14 15:08 | DRG 603 ==
LOC: ED 14:13 → ERH 17:00 → 3RNO 21:04
PROVIDERS: ADMIT Internal Medicine; ATTEND Internal Medicine
DX: L03.115 Cellulitis of right lower limb (principal); L97.819 Non-pressure chronic ulcer of other part of right lower leg with unspecified severity; L97.829 Non-pressure chronic ulcer of other part of left lower leg with unspecified severity; L03.116 Cellulitis of left lower limb; L89.151 Pressure ulcer of sacral region, stage 1; M34.9 Systemic sclerosis, unspecified; I73.9 Peripheral vascular disease, unspecified; B96.1 Klebsiella pneumoniae [K. pneumoniae] as the cause of diseases classified elsewhere; A49.01 Methicillin susceptible Staphylococcus aureus infection, unspecified site; H54.61 Unqualified visual loss, right eye, normal vision left eye; H91.91 Unspecified hearing loss, right ear; Z96.642 Presence of left artificial hip joint; K29.80 Duodenitis without bleeding; K29.70 Gastritis, unspecified, without bleeding; I49.9 Cardiac arrhythmia, unspecified; N40.0 Benign prostatic hyperplasia without lower urinary tract symptoms; M54.9 Dorsalgia, unspecified; E87.6 Hypokalemia; B96.89 Other specified bacterial agents as the cause of diseases classified elsewhere; K59.00 Constipation, unspecified; Z87.891 Personal history of nicotine dependence

== ENCOUNTER 2018-01-11 11:41 | Emergency (ER) | payer MEDICARE ==
[2018-01-11 11:53] VITALS: BMI 22.4
[2018-01-11 11:57] VITALS: TEMP 98.4
[2018-01-11] MEDS ORDERED: Sodium Chloride 0.9% 1,000 ML IV STA (11:57)
--- NOTE | 2018-01-11 12:02 | ED PDOC ---
Arrival/HPI - General Chief Complaint: Wound Check Time Seen by Provider: 01/11/18 11:44 Historian: [facility], Other (pt's PCP dr Mcleod) EM Caveat: Dementia - History of Present Illness Narrative History of Present Illness (Text): 01/11/18 1150 Pt p/w + G-tube site bleeding x 1 day as per PCP and alf; pt without other complaints; pt is at mental status baseline as per PCP; pt is non-verbal; NO trauma/sick contact/travel is noted; pt is primarily bed bound NO fever/further pain, no vomiting, no sob, no other complaints are noted pt is here for further eval. PCP: Dr Mcleod alf resident: Richard pt is non-verbal G-tube was placed 10/2017 Time/Duration: 24 hours Symptom Onset: Sudden Symptom Course: Unchanged Severity Level: Mild Activities at Onset: Rest Context: Other ([facility]) Past Medical History - Provider Review Nursing Documentation Reviewed: Yes - Travel History Have you recently traveled outside [place] w/in the past 3 mons?: No - Past History Past History: No Previous - Infectious Disease Hx of Infectious Diseases: None - Tetanus Immunization Tetanus Immunization: Unknown - Reproductive Currently Lactating: No - Cardiac Hx Cardiac Disorders: Yes - Pulmonary Hx Respiratory Disorders: No - Neurological Other/Comment: syncopal episode 22 yrs ago - HEENT 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", right ear hearing loss - Renal Hx Renal Disorder: No - Endocrine/Metabolic Hx Endocrine Disorders: No - Hematological/Oncological Hx Blood Disorders: No Hx Cancer: (denies prostate ca) - Integumentary Hx Dermatological Disorder: No - Musculoskeletal/Rheumatological Hx Falls: Yes - Gastrointestinal Other/Comment: esophagitis, gastritis, gas, uses stool softeners - Genitourinary/Gynecological Hx Prostate Problems: Yes (denies ca, had prostate sx 2 months ago) Other/Comment: dribbling since prostate sx when coughing or laughing - Psychiatric Hx Depression: No Hx Substance Use: No - Surgical History Other/Comment: left hip replacement 2000 - Anesthesia Hx Anesthesia: Yes Hx Anesthesia Reactions: No - Suicidal Assessment Feels Threatened In Home Enviroment: No Family/Social History - Physician Review Nursing Documentation Reviewed: Yes Family/Social History: No Known Family HX Smoking Status: Unknown If Ever Smoked Hx Alcohol Use: Yes (drinks beer) Hx Substance Use: No Hx Substance Use Treatment: No Allergies/Home Meds Allergies/Adverse Reactions: Allergies No Known Allergies Allergy (Verified 10/08/17 01:41) Home Medications: Home Meds Medication Instructions Recorded Confirmed Pantoprazole [Protonix EC Tab] 40 mg PO DAILY 10/08/17 01/11/18 Review of Systems - Review of Systems Constitutional: Normal Eyes: Normal ENT: Normal Respiratory: Normal Cardiovascular: Normal Gastrointestinal: Normal Genitourinary Male: Normal Musculoskeletal: Normal Skin: Other (abd wound site bleeding) Neurological: Normal Endocrine: Normal Hemo/Lymphatic: Normal Psychiatric: Normal Physical Exam Vital Signs Reviewed: Yes Vital Signs Temp Pulse Resp BP Pulse Ox 01/11/18 17:00 85 18 130/71 99 01/11/18 15:34 89 18 128/69 99 01/11/18 13:04 94 H 18 132/71 99 01/11/18 11:57 98.4 F 99 H 18 134/74 99 Temperature: Afebrile Blood Pressure: Normal Pulse: Regular Respiratory Rate: Normal Appearance: Positive for: Well-Appearing, Other (alert/awake, non-verbal, NAD, cooperative, resting in bed) Pain Distress: None - Systems Exam Head: Present: Atraumatic, Normocephalic, Other (bi-temporal wasting noted) Pupils: Present: PERRL Extroacular Muscles: Present: EOMI Conjunctiva: Present: Normal Ears: Present: Normal Mouth: Present: Other (mild dry oral mucosa, poor dentitions, no drooling/ stridor, no dysphonia) Pharnyx: Present: Normal Nose (External): Present: Atraumatic Nose (Internal): Present: Normal Inspection Neck: Present: Normal Range of Motion, Trachea Midline, Other (intact ROM, no midline tenderness). No: MIDLINE TENDERNESS Respiratory/Chest: Present: Clear to Auscultation, Good Air Exchange, Other ( CTA b/l, no w/r/r) Cardiovascular: Present: Regular Rate and Rhythm, Normal S1, S2 Abdomen: Present: Normal Bowel Sounds, Other (thin male, no focal tenderness; noted left mid abd G-tube, site appears slightly raw/erythematous, no skin exfoliations noted, no wound fluctuance noted, no odor/discharge noted, no local wound tenderness noted; no active wound site discharge/bleeding noted; no wright's sign, no mcburney's point tenderness, + bs, soft/nd) Back: Present: Normal Inspection, Decubitus Ulcer (stage 1; no surrounding skin erythema noted, no fluctuance noted) Upper Extremity: Present: Normal Inspection, NORMAL PULSES, Neurovascularly Intact, Other (decr strength right upper ext +4/5; intact ROM b/l, no gross deformities noted) Lower Extremity: Present: NORMAL PULSES, Other (noted b/l heel/lateral region of the feet ulcerative wounds, ~ stage 1 decubitus) Neurological: Present: Other (bedbound, non-verbal, resting in bed) Skin: Present: Warm, Normal Color, Other (cap refill ~ 1sec, no petechiae, no rashes) Psychiatric: Present: Alert Medical Decision Making ED Course and Treatment: 01/11/18 12:03 Impression: g-tube site bleeding i have consider all the differential diagnosis regarding pt's chief medical complaints/clinical findings, including but are not limited to: r/o wound breakdown vs g-tube malfunction? vs infection A/P: g-tube site bleeding - xray - labs - iv - ct - ua - observe - supportive care 01/11/18 15:[address] Mcleod, who is aware and agrees with ED dx/mgt plan. Requests to continue hydrating patient via IV and continue to monitor G-tube functions and then discharge patient to [facility] with proper wound care precautions. Dr Mcleod is made aware of the lower extremity skin breakdown and he will notify the [facility] of the said wounds 1700 pt received his fluid bolus pt is not in any distress pt appearing comfortable pt is resting pt is currently awaiting transport to be transfer back to [facility] nursing staff will notify [facility] regarding constant wound care, expressed concern for beginnings of stage 1 decubitus wounds to b/l lower feet and saccrum Re-evaluation Time: 15:47 Reassessment Condition: Unchanged - Lab Interpretations Lab Results: 01/11/18 12:05 01/11/18 12:05 Lab Results 01/11/18 14:05: Urine Color Yellow, Urine Appearance Clear, Urine pH 8.0, Ur Specific [place] 1.015, Urine Protein Trace H, Urine Glucose (UA) Negative, Urine Ketones Negative, Urine Blood Negative, Urine Nitrate Negative, Urine Bilirubin Negative, Urine Urobilinogen 0.2, Ur Leukocyte Esterase Negative, Urine RBC 0 - 2, Urine WBC 0 - 2, Ur Epithelial Cells 1 - 3, Amorphous Sediment Moderate, Urine Bacteria Small 01/11/18 12:05: pO2 187 H, VBG pH 7.48 H, VBG pCO2 46.0, VBG HCO3 34.3 H, VBG Total CO2 35.7 H, VBG O2 Sat (Calc) 99.9 H, VBG Base Excess 9.4 H, VBG Potassium 4.3, Sodium 140.0, Chloride 109.0 H, Glucose 123 H, Lactate 0.9, FiO2 21.0, Venous Blood Potassium 4.3 01/11/18 12:05: Sodium 142, Chloride 105, Potassium 4.4, Carbon Dioxide 31, Anion Gap 9 L, BUN 35 H, Creatinine 0.6 L, Est GFR ( Amer) > 60, Est GFR (Non-Af Amer) > 60, Random Glucose 123 H, Calcium 9.0, Total Bilirubin 0.2, AST 44, ALT 68 H, Alkaline Phosphatase 222 H D, Total Protein 6.8, Albumin 3.0, Globulin 3.8, Albumin/Globulin Ratio 0.8 L, Lipase 116 01/11/18 12:05: PT 13.6 H, INR 1.18 H, APTT 31.6 01/11/18 12:05: WBC 11.6 H D, RBC 3.23 L, Hgb 9.1 L D, Hct 30.4 L, MCV 94.1, MCH 28.2, MCHC 29.9 L, RDW 17.8 H, Plt Count 346, MPV 9.8, Gran % 77.1 H, Lymph % (Auto) 7.6 L, [place] % (Auto) 13.5 H, Eos % (Auto) 1.6, Baso % (Auto) 0.2, Gran # 8.90 H, Lymph # (Auto) 0.9 L, [place] # (Auto) 1.6 H, Eos # (Auto) 0.2, Baso # ( Auto) 0.02 I have reviewed the lab results: Yes Interpretation: All labs normal (chronic anemia noted) - RAD Interpretation Narrative RAD Interpretations (Text): 01/11/18 12:20 Chest X-ray Creator : Jeremias Preston MD Dictator : Jeremias Preston MD FINDINGS: LUNGS: No active pulmonary disease. PLEURA: No significant pleural effusion identified, no pneumothorax apparent. CARDIOVASCULAR: Normal. OSSEOUS STRUCTURES: No significant abnormalities. VISUALIZED UPPER ABDOMEN: Chronic elevation the left hemidiaphragm IMPRESSION: No active disease. 01/11/18 14:44 CT Abdomen and Pelvis with contrast Creator : Jeremias Preston MD Dictator : Jeremias Preston MD FINDINGS: LOWER THORAX: Unremarkable. LIVER: Unremarkable. No gross lesion or ductal dilatation. GALLBLADDER AND BILE DUCTS: Unremarkable. PANCREAS: Unremarkable. No gross lesion or ductal dilatation. SPLEEN: Unremarkable. ADRENALS: Unremarkable. No mass. KIDNEYS AND URETERS: Unremarkable. No hydronephrosis. No solid mass. VASCULATURE: Unremarkable. No aortic aneurysm. BOWEL: Unremarkable. No obstruction. No gross mural thickening. The gastrostomy tube appears to be in satisfactory position within the stomach. There is no evidence of abscess APPENDIX: Normal appendix. PERITONEUM: Unremarkable. No free fluid. No free air. LYMPH NODES: Unremarkable. No enlarged lymph nodes. BLADDER: Unremarkable. REPRODUCTIVE: Unremarkable. BONES: Degenerative changes are seen in the left hip. There is a right hip prosthesis IMPRESSION: The gastrostomy tube appears to be in satisfactory position within the stomach. There is no evidence of abscess Radiology Orders: 01/11/18 11:57 CHEST PORTABLE [RAD] Stat 01/11/18 11:58 ABD & PELVIS IV CONTRAST ONLY [CT] Stat Chain Builder Loom Control: Radiologist - Medication Orders Current Medication Orders: Sodium Chloride (Sodium Chloride 0.9%) 1,000 mls @ 100 mls/hr IV .Q10H STA Stop: 01/11/18 21:56 Last Admin: 01/11/18 12:28 Dose: 100 mls/hr eMAR Start Stop Document 01/11/18 12:28 SF (Rec: 01/11/18 12:28 [email or web address] Intravenous Solution Start Date 01/11/18 Start Time 12:28 Discontinued Medications Sodium Chloride (Sodium Chloride 0.9%) 500 mls @ 999 mls/hr IV .Q31M STA Stop: 01/11/18 15:43 Last Admin: 01/11/18 15:36 Dose: 999 mls/hr eMAR Start Stop Document 01/11/18 15:36 SF (Rec: 01/11/18 15:36 SF [email or web address] Intravenous Solution Start Date 01/11/18 Start Time 15:36 End Date 01/11/18 End time 16:05 Total Infusion Time 29 Pantoprazole Sodium (Protonix Inj) 40 mg IVP STAT STA Stop: 01/11/18 11:58 Last Admin: 01/11/18 12:28 Dose: 40 mg IVP Administration Document 01/11/18 12:28 SF (Rec: 01/11/18 12:28 [email or web address] Charges for Administration # of IVP Administrations 1 Disposition/Present on Arrival - Present on Arrival Any Indicators Present on Arrival: No History of DVT/PE: No History of Uncontrolled Diabetes: No Urinary Catheter: No History of Decub. Ulcer: No History Surgical Site Infection Following: None - Disposition Have Diagnosis and Disposition been Completed?: Yes Diagnosis: Gastrostomy tube skin breakdown, Dehydration Disposition: HOME/ ROUTINE Disposition Time: 16:05 Patient Plan: Discharge (to [facility]) Patient Problems: Current Active Problems Problem Status Onset Gastrostomy tube skin breakdown Acute Dehydration Acute Condition: STABLE Discharge Instructions (ExitCare): Dehydration, Adult (DC), How to Care for Your PEG Tube , Wound Care (DC), How to Give a Tube Feeding Print Language: SPANISH Additional Instructions: Make sure to see your doctor in 1-2 days DRINK PLENTY OF FLUIDS take your medications as prescribed KEEP wound clean and dry RETURN TO ED IF worse pain, cant breath, persistent vomiting, high fever >101- 102 for hours, altered behavior, slurr speech, facial changes, focal weakness ( arm/leg or both), unable to urinate, heavy/persistent bleeding, passing out, chest pain, or other medical emergencies Referrals: [facility] Cathi Req, [Primary Care Provider] - Follow up with primary Yuri Mcleod DO [Staff Provider] - Follow up with primary Forms: [employer] (Nauruan)
--- NOTE | 2018-01-11 12:18 | RAD ---
HISTORY: bleeding at Gtube site COMPARISON: 08/11/2017 FINDINGS: LUNGS: No active pulmonary disease. PLEURA: No significant pleural effusion identified, no pneumothorax apparent. CARDIOVASCULAR: Normal. OSSEOUS STRUCTURES: No significant abnormalities. VISUALIZED UPPER ABDOMEN: Chronic elevation the left hemidiaphragm OTHER FINDINGS: None. IMPRESSION: No active disease.
[2018-01-11 12:21] LABS: BASO # 0.02 K/mm3 (0.0-2.0); BASO % 0.2 % (0.0-3.0); EOS # 0.2 (0.0-0.7); EOS % 1.6 % (1.5-5.0); GRAN # 8.9 (1.4-6.5); GRAN % 77.1 % (50.0-68.0); HEMOGLOBIN 9.1 g/dL (14.0-18.0); LYMPH # 0.9 (1.2-3.4); LYMPH % 7.6 % (22.0-35.0); MEAN CELL VOLUME 94.1 fl (80.0-105.0); MEAN CORPUSCULAR HEMOGLOBIN 28.2 pg (25.0-35.0); MEAN CORPUSCULAR HGB CONC 29.9 g/dl (31.0-37.0); MEAN PLATELET VOLUME 9.8 fl (7.0-11.0); MONO # 1.6 (0.1-0.6); MONO % 13.5 % (1.0-6.0); RBC 3.23 10^6/uL (3.5-6.1); RED CELL DISTRIBUTION WIDTH 17.8 % (11.5-14.5); VENOUS BLOOD GAS BASE EXCESS 9.4 mmol/L (0.0-2.0); VENOUS BLOOD GAS PO2 187 mm/Hg (30-55); VENOUS BLOOD PH 7.48 (7.32-7.43); WHITE BLOOD COUNT 11.6 10^3/ul (4.5-11.0)
[2018-01-11 12:29] LABS: ALB/GLOB RATIO 0.8 (1.1-1.8); ALT/SGPT 68 U/L (7-56); AST/SGOT 44 U/L (17-59); BLOOD UREA NITROGEN 35 mg/dL (7-21); GFR AFRICAN-AMERICAN > 60; GFR NON-AFRICAN AMERICAN > 60; LIPASE 116 U/L (23-300)
[2018-01-11 12:30] LABS: INR 1.18 (0.93-1.08); PARTIAL THROMBOPLASTIN TIME 31.6 Seconds (25.1-36.5); PROTHROMBIN TIME 13.6 SECONDS (9.4-12.5)
[2018-01-11] MEDS ORDERED: Iohexol 350 MG/100 ML VIAL ONE (13:02)
[2018-01-11 14:22] LABS: URINE BILIRUBIN NEGATIVE (NEGATIVE); URINE BLOOD NEGATIVE (NEGATIVE); URINE GLUCOSE (UA) NEGATIVE (NEGATIVE); URINE LEUKOCYTE ESTERASE NEGATIVE Leu/uL (NEGATIVE); URINE PROTEIN TRACE mg/dL (<30 mg/dL); URINE UROBILINOGEN 0.2 E.U./dL (<1 E.U./dL)
[2018-01-11 14:24] LABS: URINE APPEARANCE CLEAR (CLEAR); URINE COLOR YELLOW (YELLOW)
[2018-01-11 14:30] LABS: URINE RBC 0 - 2 /hpf (0-2); URINE WBC 0 - 2 /hpf (0-6)
[2018-01-11 14:31] LABS: URINE AMORPHOUS SEDIMENT MODERATE; URINE BACTERIA SMALL (NEG)
--- NOTE | 2018-01-11 14:43 | CT ---
PROCEDURE: CT Abdomen and Pelvis with contrast HISTORY: bleeding from G-tube site, r/o abscess? COMPARISON: None. TECHNIQUE: Contrast dose: 100 cc of Omni 350 Radiation dose: Total exam DLP = 1183 mGy-cm. This CT exam was performed using one or more of the following dose reduction techniques: Automated exposure control, adjustment of the mA and/or kV according to patient size, and/or use of iterative reconstruction technique. FINDINGS: LOWER THORAX: Unremarkable. LIVER: Unremarkable. No gross lesion or ductal dilatation. GALLBLADDER AND BILE DUCTS: Unremarkable. PANCREAS: Unremarkable. No gross lesion or ductal dilatation. SPLEEN: Unremarkable. ADRENALS: Unremarkable. No mass. KIDNEYS AND URETERS: Unremarkable. No hydronephrosis. No solid mass. VASCULATURE: Unremarkable. No aortic aneurysm. BOWEL: Unremarkable. No obstruction. No gross mural thickening. The gastrostomy tube appears to be in satisfactory position within the stomach. There is no evidence of abscess APPENDIX: Normal appendix. PERITONEUM: Unremarkable. No free fluid. No free air. LYMPH NODES: Unremarkable. No enlarged lymph nodes. BLADDER: Unremarkable. REPRODUCTIVE: Unremarkable. BONES: Degenerative changes are seen in the left hip. There is a right hip prosthesis OTHER FINDINGS: None. IMPRESSION: The gastrostomy tube appears to be in satisfactory position within the stomach. There is no evidence of abscess
[2018-01-11] MEDS ORDERED: Sodium Chloride 0.9% 500 ML IV STA (15:13)
[2018-01-11 18:50] VITALS: RESP 16; O2SAT 100
[2018-01-11 21:43] VITALS: BP 122/64; PULSE 106
== END 2018-01-11 23:40 ==
LOC: ED 11:41
DX: K94.20 Gastrostomy complication, unspecified (principal); E86.0 Dehydration
CPT/HCPCS: 71045; 74177; 80053; 81001; 82803; 83690; 85025; 85610; 85730; 96374; 99285; C9113; J7040; Q9967

== ENCOUNTER 2018-02-25 17:49 | Observation (INO) | payer SELFPAY ==
[2018-02-25 19:15] LABS: BASO # 0.02 K/mm3 (0.0-2.0); BASO % 0.2 % (0.0-3.0); EOS # 0.2 (0.0-0.7); EOS % 1.4 % (1.5-5.0); GRAN # 10.31 (1.4-6.5); GRAN % 82.7 % (50.0-68.0); HEMOGLOBIN 11.3 g/dL (14.0-18.0); LYMPH # 1.2 (1.2-3.4); LYMPH % 9.5 % (22.0-35.0); MEAN CELL VOLUME 90.1 fl (80.0-105.0); MEAN CORPUSCULAR HEMOGLOBIN 27.3 pg (25.0-35.0); MEAN CORPUSCULAR HGB CONC 30.3 g/dl (31.0-37.0); MEAN PLATELET VOLUME 10.7 fl (7.0-11.0); MONO # 0.8 (0.1-0.6); MONO % 6.2 % (1.0-6.0); RBC 4.14 10^6/uL (3.5-6.1); WHITE BLOOD COUNT 12.5 10^3/ul (4.5-11.0)
[2018-02-25 19:20] LABS: ALB/GLOB RATIO 0.7 (1.1-1.8); ALBUMIN 3.2 g/dL (3.0-4.8); ALT/SGPT 80 U/L (7-56); AST/SGOT 59 U/L (17-59); BLOOD UREA NITROGEN 40 mg/dL (7-21); CALCIUM 8.8 mg/dL (8.4-10.5); GFR AFRICAN-AMERICAN > 60; GFR NON-AFRICAN AMERICAN > 60
[2018-02-25 19:25] LABS: INR 1.23 (0.93-1.08); PARTIAL THROMBOPLASTIN TIME 32.2 Seconds (25.1-36.5); PROTHROMBIN TIME 14.4 SECONDS (9.4-12.5)
[2018-02-25] MEDS ORDERED: Sodium Chloride 0.9% 500 ML IV STA (19:29)
--- NOTE | 2018-02-25 19:29 | ED PDOC ---
Arrival/HPI - General Chief Complaint: GI Problem Time Seen by Provider: 02/25/18 18:16 Historian: Patient - History of Present Illness Narrative History of Present Illness (Text): 02/25/18 19:23 87yr old male sent in from nursing for new Peg tub placement. per dr. humphries, patient had dislodged Peg tube today, sotomayor was placed temporarily in group home. pt is non verbal. unable to answer any questions . 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", right ear hearing loss - Renal Hx Renal Disorder: No - Endocrine/Metabolic Hx Endocrine Disorders: No - Hematological/Oncological Hx Blood Disorders: No Hx Cancer: (denies prostate ca) - Integumentary Hx Dermatological Disorder: No - Musculoskeletal/Rheumatological Hx Falls: Yes - Gastrointestinal Other/Comment: esophagitis, gastritis, gas, uses stool softeners - Genitourinary/Gynecological Hx Prostate Problems: Yes (denies ca, had prostate sx 2 months ago) Other/Comment: dribbling since prostate sx when coughing or laughing - Psychiatric Hx Depression: No Hx Substance Use: No - Surgical History Other/Comment: left hip replacement 2000 - Anesthesia Hx Anesthesia: Yes Hx Anesthesia Reactions: No Hx Malignant Hyperthermia: No - Suicidal Assessment Feels Threatened In Home Enviroment: No Family/Social History - Physician Review Nursing Documentation Reviewed: Yes Family/Social History: Unknown Family HX Smoking Status: Unknown If Ever Smoked Hx Alcohol Use: Yes (drinks beer) Hx Substance Use: No Hx Substance Use Treatment: No Allergies/Home Meds Allergies/Adverse Reactions: Allergies No Known Allergies Allergy (Verified 10/08/17 01:41) Home Medications: Home Meds Medication Instructions Recorded Confirmed Pantoprazole [Protonix EC Tab] 40 mg PO DAILY 10/08/17 01/11/18 Review of Systems - Review of Systems Systems not reviewed;Unavailable: Other (non verbal) Physical Exam Vital Signs Reviewed: Yes Vital Signs Temp Pulse Resp BP Pulse Ox 02/25/18 17:58 98.5 F 96 H 18 133/87 97 Temperature: Afebrile Blood Pressure: Normal Pulse: Regular Respiratory Rate: Normal Appearance: Positive for: Well-Appearing, Non-Toxic, Comfortable Pain Distress: None Mental Status: Positive for: other (alert) - Systems Exam Head: Present: Atraumatic Respiratory/Chest: Present: Clear to Auscultation Cardiovascular: Present: Regular Rate and Rhythm Abdomen: Present: Other (sotomayor catheter noted in peg tube opening. ). No: Tenderness, Distention, Rebound, Guarding Skin: Present: Warm, Dry Psychiatric: Present: Alert Medical Decision Making ED Course and Treatment: 02/25/18 19:33 87yr old male with dislodged peg tub from group home. cbc;wbc; 12.5 Cmp; na; 151, bun 40 cr: 0.6 cxr; no infiltrate Pt given NS will send blood cultures, UA pending case discussed with dr. humphries; will admit observational status for peg tube placement. case discussed with dr. andersen; impression; peg tug displaced admit observational status to med/surg - Lab Interpretations Lab Results: 02/25/18 18:50 02/25/18 18:50 Lab Results 02/25/18 18:50: WBC 12.5 H, RBC 4.14, Hgb 11.3 L D, Hct 37.3 L, MCV 90.1 D, MCH 27.3, MCHC 30.3 L, RDW 18.0 H, Plt Count 313, MPV 10.7, Gran % 82.7 H, Lymph % (Auto) 9.5 L, [place] % (Auto) 6.2 H, Eos % (Auto) 1.4 L, Baso % (Auto) 0.2 , Gran # 10.31 H, Lymph # (Auto) 1.2, [place] # (Auto) 0.8 H, Eos # (Auto) 0.2, Baso # (Auto) 0.02 02/25/18 18:50: Sodium 151 H, Potassium 4.3, Chloride 110 H, Carbon Dioxide 33, Anion Gap 13, BUN 40 H, Creatinine 0.6 L, Est GFR ( Amer) > 60, Est GFR ( Non-Af Amer) > 60, Random Glucose 117 H, Calcium 8.8, Total Bilirubin 0.3, AST 59 D, ALT 80 H, Alkaline Phosphatase 241 H, Total Protein 7.4, Albumin 3.2, Globulin 4.3, Albumin/Globulin Ratio 0.7 L 02/25/18 18:50: PT 14.4 H, INR 1.23 H, APTT 32.2 - RAD Interpretation Radiology Orders: 02/25/18 19:13 CHEST PORTABLE [RAD] Stat - Medication Orders Current Medication Orders: Sodium Chloride (Sodium Chloride 0.9%) 500 mls @ 999 mls/hr IV .Q31M STA Stop: 02/25/18 19:59 Disposition/Present on Arrival - Present on Arrival Any Indicators Present on Arrival: No History of DVT/PE: No History of Uncontrolled Diabetes: No Urinary Catheter: No History of Decub. Ulcer: No History Surgical Site Infection Following: None - Disposition Have Diagnosis and Disposition been Completed?: Yes Diagnosis: PEG tube malfunction Disposition: HOSPITALIZED Disposition Time: 20:01 Patient Plan: Observation Condition: [facility] Forms: [facility] ([place]akh)
[2018-02-25] MEDS ORDERED: Sodium Chloride 0.45% 1,000 ML IV SCH (21:15)
[2018-02-26 05:11] VITALS: BMI 25.8
--- NOTE | 2018-02-26 06:57 | CP.PCM.CON ---
<Liban Benavides - Last Filed: 02/26/18 12:26> History of Present Illness - History of Present Illness History of Present Illness: Subjective: Patient is a 87 year old male with a past medical history of esophagitis, gastritis, prostate cancer, CVA, and htn who was admitted for evaluation and treatment of PEG tube malfunction. As per records the patient resides in [facility] where the PEG tube was dislodged. GI consulted for PEG tube replacement. Patient is nonverbal at baseline. No further subjective data can be attained at this time due to patient's baseline nonverbal state/ altered mental status. 12 point ROS cannot be ascertained at this time due to altered mental status. As per available records: PMHx: esophagitis, gastritis, prostate cancer, CVA, and htn PSHx: percutenous endoscopic gastronomy tube placement Allergies: NKDA Social Hx: former ETOH use, no tobacco use, no illicit drug use Family Hx: no family Physical Examination: - Constitutional Appears: Cachectic, Chronically Ill - Head Exam Head Exam: ATRAUMATIC - Eye Exam Eye Exam: PERLL - ENT Exam ENT Exam: Mucous Membranes Dry - Respiratory Exam Respiratory Exam: NORMAL BREATHING PATTERN. absent: Rhonchi, Wheezes - GI/Abdominal Exam GI & Abdominal Exam: Soft. absent: Firm, Guarding, Tenderness Additional comments: percutaneous endoscopic gastrostomy tube site clean, dry - Extremities Exam Extremities exam: Positive for: normal inspection - Neurological Exam Additional comments: awake, does not answer questions appropriately, or follow commands - Skin Skin Exam: Dry, Warm Assessment and Plan: Patient is a 87 year old male with a past medical history of esophagitis, gastritis, prostate cancer, CVA, and htn who was admitted for evaluation and treatment of PEG tube malfunction. PEG tube was dislodged. GI team consulted for PEG tube replacement. PEG tube malfunction Hx of esophagitis Hx of gastritis Hx of prostate cancer, Hx of CVA Hx of HTN - PEG tube to be replaced at bedside - continue with IVF and ceftriaxone Thank you for the opportunity for participating in the care of this patient. Patient case reviewed with and plan approved by attending physician, Dr. Curry. 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", right ear hearing loss - RENAL Hx Chronic Kidney Disease: No - ENDOCRINE/METABOLIC Hx Endocrine Disorders: No - HEMATOLOGICAL/ONCOLOGICAL Hx Blood Disorders: No Hx Cancer: (denies prostate ca) - INTEGUMENTARY Hx Dermatological Problems: No - MUSCULOSKELETAL/RHEUMATOLOGICAL Hx Falls: No - GASTROINTESTINAL Other/Comment: esophagitis, gastritis, gas, uses stool softeners - GENITOURINARY/GYNECOLOGICAL Hx Prostate Problems: Yes (denies ca, had prostate sx 2 months ago) Other/Comment: dribbling since prostate sx when coughing or laughing - PSYCHIATRIC Hx Depression: No Hx Substance Use: No - SURGICAL HISTORY Other/Comment: left hip replacement 2000 - ANESTHESIA Hx Anesthesia: Yes Hx Anesthesia Reactions: No Hx Malignant Hyperthermia: No Meds Allergies/Adverse Reactions: Allergies Allergy/AdvReac Type Severity Reaction Status Date / Time No Known Allergies Allergy Verified 10/08/17 01:41 - Medications Medications: Current Medications Apixaban (Eliquis) 2.5 mg PO BID ATA PRN Reason: Protocol Sodium Chloride (Sodium Chloride 0.45%) 1,000 mls @ 40 mls/hr IV .Q24H [facility] Last Admin: 02/25/18 22:10 Dose: 40 mls/hr Ceftriaxone Sodium (Rocephin 1 Gram Ivpb) 1 gm in 100 mls @ 100 mls/hr IVPB DAILY ATA PRN Reason: Protocol Metoprolol Tartrate (Lopressor) 25 mg PO BID [facility] Physical Exam - Constitutional Appears: Cachectic, Chronically Ill - Head Exam Head Exam: ATRAUMATIC - Eye Exam Eye Exam: EOMI - ENT Exam ENT Exam: Mucous Membranes Dry - Respiratory Exam Respiratory Exam: NORMAL BREATHING PATTERN. absent: Rhonchi, Wheezes - GI/Abdominal Exam GI & Abdominal Exam: Soft. absent: Firm, Guarding, Tenderness Additional comments: percutaneous endoscopic gastrostomy tube site clean, dry - Extremities Exam Extremities exam: Positive for: normal inspection - Neurological Exam Additional comments: awake, does not answer questions appropriately, or follow commands - Skin Skin Exam: Dry, Warm Results - Vital Signs Recent Vital Signs: Last Vital Signs Temp 99 F 02/26/18 04:18 Pulse 99 H 02/26/18 04:18 Resp 18 02/26/18 04:18 BP 133/90 02/26/18 04:18 Pulse Ox 98 02/25/18 23:07 - Labs Result Diagrams: 02/26/18 06:45 02/26/18 06:45 <Ricardo Curry - Last Filed: 02/26/18 20:41> Meds - Medications Medications: Current Medications Apixaban (Eliquis) 2.5 mg PO BID [facility] PRN Reason: Protocol Last Admin: 02/26/18 18:54 Dose: 2.5 mg Sodium Chloride (Sodium Chloride 0.45%) 1,000 mls @ 40 mls/hr IV .Q24H [facility] Last Admin: 02/25/18 22:10 Dose: 40 mls/hr Ceftriaxone Sodium (Rocephin 1 Gram Ivpb) 1 gm in 100 mls @ 100 mls/hr IVPB DAILY [facility] PRN Reason: Protocol Last Admin: 02/26/18 10:53 Dose: 100 mls/hr Metoprolol Tartrate (Lopressor) 25 mg PO BID [facility] Last Admin: 02/26/18 18:54 Dose: 25 mg Results - Vital Signs Recent Vital Signs: Last Vital Signs Temp 98.6 F 02/26/18 14:00 Pulse 98 H 02/26/18 14:00 Resp 22 02/26/18 14:00 BP 125/78 02/26/18 14:00 Pulse Ox 98 02/26/18 14:00 - Labs Result Diagrams: 02/26/18 06:45 02/26/18 06:45 Labs: Laboratory Results - last 24 hr 02/26/18 02/26/18 06:45 06:45 WBC 11.6 H RBC 3.68 Hgb 9.9 L Hct 33.0 L MCV 89.7 MCH 26.9 MCHC 30.0 L RDW 18.0 H Plt Count 291 MPV 10.3 Sodium 152 H Potassium 4.2 Chloride 114 H Carbon Dioxide 32 Anion Gap 10 BUN 33 H Creatinine 0.7 L Est GFR ( Amer) > 60 Est GFR (Non-Af Amer) > 60 Random Glucose 101 Calcium 8.8 Total Bilirubin 0.2 AST 43 ALT 69 H Alkaline Phosphatase 202 H Total Protein 7.1 Albumin 3.0 Globulin 4.1 Albumin/Globulin Ratio 0.7 L Attending/Attestation - Attestation I have personally seen and examined this patient.: Yes I have fully participated in the care of the patient.: Yes I have reviewed all pertinent clinical information: Yes Notes (Text): 02/26/18 20:41 87 year old male with dislodged peg. Replaced peg at bedside.
[2018-02-26 07:07] LABS: HEMOGLOBIN 9.9 g/dL (14.0-18.0); MEAN CELL VOLUME 89.7 fl (80.0-105.0); MEAN CORPUSCULAR HEMOGLOBIN 26.9 pg (25.0-35.0); MEAN PLATELET VOLUME 10.3 fl (7.0-11.0); RBC 3.68 10^6/uL (3.5-6.1); WHITE BLOOD COUNT 11.6 10^3/ul (4.5-11.0)
--- NOTE | 2018-02-26 07:38 | HP ---
HISTORY OF PRESENT ILLNESS: I know Grupo from [facility] where I see him monthly. He has a feeding tube placed after he had a stroke. It dislodged. They put a Robledo catheter in temporally to keep the PEG open. He is now a PEG tube placement hopefully for tomorrow. He is comfortable in bed, in no acute distress. He is nonverbal. PAST MEDICAL HISTORY: He has a past medical history of being bed bound. History of syncopal episodes. 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 He has hearing loss. History of prostate cancer. He used to have multiple falls, now he is bed bound. He had esophagitis, gastritis. He uses stool softeners. He has prostate problems. He had a left hip replacement in 2000. He is status post CVA, hypertension. FAMILY HISTORY: No family. SOCIAL HISTORY: Nonsmoker, does drink alcohol in the past, not now. No substance abuse. ALLERGIES: NO KNOWN DRUG ALLERGIES. MEDICATIONS: He is on aspirin, Bacitracin, Crestor, Protonix, Tobradex eye drops, Eliquis and metoprolol. REVIEW OF SYSTEMS: He is nonverbal, he is bed bound. His eyes open every now and then. His feeding tube fell out. They put a Robledo in place until he get a change. PHYSICAL EXAMINATION GENERAL: He is comfortable. He is at his baseline. VITAL SIGNS: Temperature 98.5, pulse 96, respiratory rate 18, blood pressure 133/87, O2 saturation 97% on room air. HEENT: His head is atraumatic, normocephalic. NECK: Throat is moist, neck is supple. CARDIOPULMONARY: His heart has regular rate. LUNGS: Clear to auscultation bilaterally. Poor inspiration. ABDOMEN: Soft, nontender, positive bowel sounds. Tube is in place. No apparent guarding or rebound. EXTREMITIES: Have no edema. SKIN: For the most part is intact. He is an 87-year-old male with a dislodged PEG tube from the senior living with, I believe, a Robledo catheter in place, here today. Chest x-ray which showed no infiltrates. LABORATORY DATA: He has a white count of 12.5, hemoglobin 11.3, hematocrit 37.3, platelets of 313. Sodium 151, potassium 4.3, chloride 110, BUN 40, creatinine 0.6, GFR is greater than 60, sugar is 170, calcium is 8.8, total bilirubin is 0.38, AST is 59, ALT is 80, alkaline phosphatase 241, total protein 7.4, albumin 3.2, INR is 1.23. IMPRESSION: He is here with dislodgement of a percutaneous endoscopic gastrostomy tube malfunction, being on observation. Hopefully, we could do the procedure tomorrow by Gastro[facility] and place the feeding tube again. He will be on IV fluids, Rocephin, Eliquis, Lopressor. He is n.p.o. Yuri Mcleod DO [facility]it
[2018-02-26 07:40] LABS: ALB/GLOB RATIO 0.7 (1.1-1.8); ALT/SGPT 69 U/L (7-56); AST/SGOT 43 U/L (17-59); BLOOD UREA NITROGEN 33 mg/dL (7-21); CALCIUM 8.8 mg/dL (8.4-10.5); GFR AFRICAN-AMERICAN > 60; GFR NON-AFRICAN AMERICAN > 60
--- NOTE | 2018-02-26 08:55 | RAD ---
HISTORY: peg tube dislodged COMPARISON: 01/11/2018 FINDINGS: LUNGS: No active pulmonary disease. PLEURA: No significant pleural effusion identified, no pneumothorax apparent. CARDIOVASCULAR: Normal. OSSEOUS STRUCTURES: No significant abnormalities. VISUALIZED UPPER ABDOMEN: Normal. OTHER FINDINGS: None. IMPRESSION: No active disease.
--- NOTE | 2018-02-26 09:50 | DS ---
HISTORY OF PRESENT ILLNESS: He was hopefully going to go for a PEG tube replacement because it fell out in the detention and they put a Robledo catheter in place to keep it open. He is on IV fluids, Lopressor, Rocephin IV. He is alert, eyes are open. No acute changes clinically. PHYSICAL EXAMINATION: VITAL SIGNS: 97.7 temp, 97 pulse, 120/74 blood pressure, 24 respiratory rate, 96% O2 sat on room air. HEENT: His head is atraumatic, normocephalic. HEART: Regular rate. LUNGS: Decreased breath sounds, but clear. ABDOMEN: Soft. Positive bowel sounds. No guarding. No rebound. No CVA tenderness. There is a Robledo catheter in the PEG tube hole, hopefully get that changed today. EXTREMITIES: Contracted. No edema. LABORATORY DATA: He has a 152 sodium, potassium 4.2, 33 BUN, creatinine 0.7, GFR is greater than 60, sugar is 101, calcium is 8.8, total bili is 0.2, AST is 43, ALT is 69, alk phos 202, total protein 7.1. INR is 1.23. He has got a 11.6 white count, better on Rocephin; hemoglobin is 9.9; hematocrit 33; platelets are 291. ASSESSMENT AND PLAN: There is a consult from Dr. Liban Benavides. I am assuring that is a resident of Gastro[facility]. In the consult, nothing was written or stated or planned or not sure what that means. I will try and reach out to Dr. Valdez, the attending to see if they could do this percutaneous endoscopic gastrostomy tube placement today. Then, I could discharge him back to the detention. Yuri Mcleod DO
[2018-02-26] MEDS ORDERED: cefTRIAXone 1 gm 1 GM/100 ML BAG IVPB SCH (10:00)
[2018-02-26 22:10] VITALS: BP 127/91; PULSE 82; RESP 20; TEMP 98.1; O2SAT 96
== END 2018-02-27 01:50 ==
LOC: ED 17:49 → ERH 20:01 → 5RSO 23:09
PROVIDERS: ADMIT Family Medicine; ATTEND Family Medicine
DX: K94.23 Gastrostomy malfunction (principal); I10 Essential (primary) hypertension; K29.70 Gastritis, unspecified, without bleeding; K20.9 Esophagitis, unspecified; H91.91 Unspecified hearing loss, right ear; Z85.46 Personal history of malignant neoplasm of prostate; Z86.73 Personal history of transient ischemic attack (TIA), and cerebral infarction without residual deficits; Y83.3 Surgical operation with formation of external stoma as the cause of abnormal reaction of the patient, or of later complication, without mention of misadventure at the time of the procedure; Z96.642 Presence of left artificial hip joint
CPT/HCPCS: 36415; 43760; 71045; 80053; 85025; 85027; 85610; 85730; 87040; 96374; 99284; G0378; J0696; J7030; J7040

== ENCOUNTER 2018-04-18 10:30 | Inpatient (IN) | payer MEDICAID, MEDICARE ==
[2018-04-18] MEDS ORDERED: Sodium Chloride 0.9% 1,000 ML IV STA (11:20)
[2018-04-18] MEDS ORDERED: Vancomycin 1gm in NS 250ml 1 GM/250 ML BAG IVPB STA (11:20)
[2018-04-18] MEDS ORDERED: Cefepime 1gm in NS 100ml 1 GM/100 ML BAG IVPB STA (11:21)
--- NOTE | 2018-04-18 11:26 | ED PDOC ---
Arrival/HPI - General Chief Complaint: GI Problem Time Seen by Provider: 04/18/18 11:09 - History of Present Illness Narrative History of Present Illness (Text): 87 y/o M FULL CODE NHR c PMHx CVA, hemiplegia, gastrostomy, blindness, aphasia, HTN sent from [place] for peg tube site drainage x unspecified duration of time. [place] papers include a culture report of the drainage which was received 03/23 (almost 1 month ago) which shows ESBL. Patient has been on Vancomycin and Amoxicillin. Full HPI/ROS unobtainable secondary to patient's clinical condition. 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", right ear hearing loss - Renal Hx Renal Disorder: No - Endocrine/Metabolic Hx Endocrine Disorders: No - Hematological/Oncological Hx Blood Disorders: No Hx Cancer: (denies prostate ca) - Integumentary Hx Dermatological Disorder: No - Musculoskeletal/Rheumatological Hx Falls: No - Gastrointestinal Other/Comment: esophagitis, gastritis, gas, uses stool softeners - Genitourinary/Gynecological Hx Prostate Problems: Yes (denies ca, had prostate sx 2 months ago) Other/Comment: dribbling since prostate sx when coughing or laughing - Psychiatric Hx Depression: No Hx Substance Use: No - Surgical History Other/Comment: left hip replacement 2000 - Anesthesia Hx Anesthesia: Yes Hx Anesthesia Reactions: No Hx Malignant Hyperthermia: No - Suicidal Assessment Feels Threatened In Home Enviroment: No Family/Social History Family/Social History: No Known Family HX Smoking Status: Unknown If Ever Smoked Hx Alcohol Use: Yes (drinks beer) Hx Substance Use: No Hx Substance Use Treatment: No Allergies/Home Meds Allergies/Adverse Reactions: Allergies No Known Allergies Allergy (Verified 10/08/17 01:41) Home Medications: Home Meds Medication Instructions Recorded Confirmed Pantoprazole [Protonix EC Tab] 40 mg PO DAILY 10/08/17 01/11/18 Review of Systems - Review of Systems Systems not reviewed;Unavailable: Dementia Physical Exam - Physical Exam Narrative Physical Exam (Text): Gen: Elderly thin male lying in stretcher, nonverbal Head: Atraumatic Eyes: No scleral icterus ENT: MMM Neck: Supple Chest: No deformity CV: Tachycardic Lungs: CTA b/l Abd: Soft Extremities: No edema Skin: LUQ gastrostomy site with tube in place and black/brown discharge Neuro: Awake, nonverbal Vital Signs Temp Pulse Resp BP Pulse Ox 04/18/18 12:57 99 H 20 135/56 L 99 04/18/18 10:31 100.7 F H 110 H 16 93/54 L 99 Medical Decision Making ED Course and Treatment: Patient is febrile, tachycardic with known ESBL infection that apparently has not responded to antibiotics. Will CT scan abdomen to evaluate for intra- abdominal infection vs superficial. UA and CXR to evaluate for further infection. 04/18/18 11:31 EKG Sinus rhythm 108 bpm, RBBB, no ST elevations 04/18/18 15:31 Abdomen/ Pelvis CT reviewed, shows; LOWER THORAX: There are trace pleural effusions and confluent airspace disease in the lower lobes. LIVER: Normal in size with homogeneous enhancement. No gross lesion or ductal dilatation. GALLBLADDER AND BILE DUCTS: No calcified gallstones. PANCREAS: Normal in size with homogeneous enhancement. No gross lesion or ductal dilatation. SPLEEN: Normal in size with homogeneous enhancement. ADRENALS: No discrete nodules. KIDNEYS AND URETERS: Normal in size with homogeneous enhancement. No hydronephrosis. No solid mass. There are small simple cysts in both kidneys. VASCULATURE: The aorta is tortuous. No aortic aneurysm. BOWEL: There is a PEG tube in the stomach. At the site of insertion of the PEG tube, there is mild thickening and soft tissue indent ELLIOT abdominal wall. There is also a small focus of air. No definite evidence of abscess or fluid collection. The small bowel loops are normal in caliber. There is moderate amount of stool in the colon. APPENDIX: Normal appendix. PERITONEUM: No free fluid. No free air. LYMPH NODES: No enlarged lymph nodes. BLADDER: Grossly normal in appearance. REPRODUCTIVE: Unremarkable. BONES: No acute fracture. Severe diffuse bone demineralization and advanced multilevel degenerative disc disease. Status post right hip arthroplasty. OTHER FINDINGS: None. IMPRESSION: Status post trach tube, soft tissue thickening and a focus of air in the anterior abdominal wall at the site of tube tract without evidence for abscess or drainable fluid collection. Constipation. No acute findings. CXR reviewed, shows: LUNGS: There are low lung volumes. There is airspace disease in the left lung base. PLEURA: No significant pleural effusion identified, no pneumothorax apparent. CARDIOVASCULAR: Normal. OSSEOUS STRUCTURES: No significant abnormalities. VISUALIZED UPPER ABDOMEN: Normal. OTHER FINDINGS: None. IMPRESSION: Airspace disease in the left lung base may represent atelectasis however superimposed pneumonia cannot be excluded. Follow-up is advised. Low lung volumes may be related to poor inspiratory effort. Dr. Mcleod accepts patient to his service, recommends ID consult. He informs me that patient is DNR/DNI in contrast to [place] paperwork and paperwork is being brought to hospital tomorrow. - Lab Interpretations Lab Results: 04/18/18 11:50 04/18/18 11:50 Lab Results 04/18/18 12:35: Blood Type B POSITIVE, Antibody Screen Negative, BBK History Checked Patient has bt 04/18/18 11:50: Sodium 159 H*, Chloride 118 H, Potassium 4.5, Carbon Dioxide 38 H, Anion Gap 9 L, BUN 41 H, Creatinine 0.7 L, Est GFR ( Amer) > 60, Est GFR (Non-Af Amer) > 60, Random Glucose 133 H, Calcium 8.3 L, Total Bilirubin 0.4 , AST 376 H D, ALT 324 H, Alkaline Phosphatase 270 H D, Total Protein 7.5, Albumin 2.9 L, Globulin 4.6, Albumin/Globulin Ratio 0.6 L 04/18/18 11:50: pO2 54, VBG pH 7.43, VBG pCO2 59.0, VBG HCO3 39.2 H, VBG Total CO2 41.0 H, VBG O2 Sat (Calc) 90.8 H, VBG Base Excess 12.3 H, VBG Potassium 4.7 , Sodium 157.0 H, Chloride 121.0 H, Glucose 133 H, Lactate 1.5, FiO2 21.0, Venous Blood Potassium 4.7 04/18/18 11:50: PT 16.0 H, INR 1.38 H, APTT 32.4 04/18/18 11:50: WBC 12.8 H, RBC 3.65, Hgb 9.7 L, Hct 33.3 L, MCV 91.2, MCH 26.6 , MCHC 29.1 L, RDW 19.3 H, Plt Count 381, MPV 10.2, Gran % 80.5 H, Lymph % (Auto ) 10.0 L, Parker % (Auto) 8.0 H, Eos % (Auto) 1.3 L, Baso % (Auto) 0.2, Gran # 10.30 H, Lymph # (Auto) 1.3, Parker # (Auto) 1.0 H, Eos # (Auto) 0.2, Baso # (Auto ) 0.03 - RAD Interpretation Radiology Orders: 04/18/18 11:18 CHEST PORTABLE [RAD] Stat 04/18/18 11:19 ABD & PELVIS IV CONTRAST ONLY [CT] Stat - Medication Orders Current Medication Orders: Discontinued Medications Sodium Chloride (Sodium Chloride 0.9%) 1,000 mls @ 999 mls/hr IV .Q1H1M STA Stop: 04/18/18 12:20 Last Admin: 04/18/18 11:59 Dose: 999 mls/hr eMAR Start Stop Document 04/18/18 11:59 HI (Rec: 04/18/18 11:59 HI [facility]) Intravenous Solution Start Date 04/18/18 Start Time 11:50 Vancomycin HCl (Vancomycin 1gm) 1 gm in 250 mls @ 167 mls/hr IVPB STAT STA PRN Reason: Protocol Stop: 04/18/18 12:49 Last Admin: 04/18/18 12:53 Dose: 167 mls/hr eMAR Start Stop Document 04/18/18 12:53 HI (Rec: 04/18/18 12:57 HI [facility]) Intravenous Solution Start Date 04/18/18 Start Time 12:57 Cefepime HCl (Maxipime 1gm) 1 gm in 100 mls @ 100 mls/hr IVPB STAT STA PRN Reason: Protocol Stop: 04/18/18 12:20 Last Admin: 04/18/18 11:50 Dose: 100 mls/hr eMAR Start Stop Document 04/18/18 11:50 HI (Rec: 04/18/18 11:59 HI [facility]) Intravenous Solution Start Date 04/18/18 Start Time 11:50 Disposition/Present on Arrival - Present on Arrival Any Indicators Present on Arrival: No History of DVT/PE: No History of Uncontrolled Diabetes: No Urinary Catheter: No History of Decub. Ulcer: No History Surgical Site Infection Following: None - Disposition Have Diagnosis and Disposition been Completed?: Yes Diagnosis: Soft tissue infection, Hypernatremia, Sepsis Disposition: HOSPITALIZED Disposition Time: 15:14 Patient Plan: Admission, Telemetry Condition: GUARDED Discharge Instructions (ExitCare): Sepsis (ED) Forms: Meican (Togolese)
--- NOTE | 2018-04-18 12:00 | RAD ---
HISTORY: fever, tachy COMPARISON: 02/25/2018. FINDINGS: LUNGS: There are low lung volumes. There is airspace disease in the left lung base. PLEURA: No significant pleural effusion identified, no pneumothorax apparent. CARDIOVASCULAR: Normal. OSSEOUS STRUCTURES: No significant abnormalities. VISUALIZED UPPER ABDOMEN: Normal. OTHER FINDINGS: None. IMPRESSION: Airspace disease in the left lung base may represent atelectasis however superimposed pneumonia cannot be excluded. Follow-up is advised. Low lung volumes may be related to poor inspiratory effort.
[2018-04-18 12:07] LABS: BASO # 0.03 K/mm3 (0.0-2.0); BASO % 0.2 % (0.0-3.0); EOS # 0.2 (0.0-0.7); EOS % 1.3 % (1.5-5.0); GRAN # 10.3 (1.4-6.5); GRAN % 80.5 % (50.0-68.0); HEMOGLOBIN 9.7 g/dL (14.0-18.0); LYMPH # 1.3 (1.2-3.4); MEAN CELL VOLUME 91.2 fl (80.0-105.0); MEAN CORPUSCULAR HEMOGLOBIN 26.6 pg (25.0-35.0); MEAN CORPUSCULAR HGB CONC 29.1 g/dl (31.0-37.0); MEAN PLATELET VOLUME 10.2 fl (7.0-11.0); RBC 3.65 10^6/uL (3.5-6.1); RED CELL DISTRIBUTION WIDTH 19.3 % (11.5-14.5); WHITE BLOOD COUNT 12.8 10^3/ul (4.5-11.0)
[2018-04-18 12:10] LABS: VENOUS BLOOD GAS BASE EXCESS 12.3 mmol/L (0.0-2.0); VENOUS BLOOD GAS PO2 54 mm/Hg (30-55); VENOUS BLOOD PH 7.43 (7.32-7.43)
[2018-04-18 12:17] LABS: INR 1.38 (0.93-1.08); PARTIAL THROMBOPLASTIN TIME 32.4 Seconds (25.1-36.5)
[2018-04-18] MEDS ORDERED: Iohexol 350 MG/100 ML VIAL ONE (12:29)
[2018-04-18 12:30] LABS: ALB/GLOB RATIO 0.6 (1.1-1.8); ALBUMIN 2.9 g/dL (3.0-4.8); ALT/SGPT 324 U/L (7-56); AST/SGOT 376 U/L (17-59); BLOOD UREA NITROGEN 41 mg/dL (7-21); CALCIUM 8.3 mg/dL (8.4-10.5); GFR AFRICAN-AMERICAN > 60; GFR NON-AFRICAN AMERICAN > 60
--- NOTE | 2018-04-18 15:09 | CT ---
PROCEDURE: CT Abdomen and Pelvis with contrast HISTORY: peg tube site drainage, fever, tachy COMPARISON: 01/11/2018 TECHNIQUE: CT scan of the abdomen and pelvis was performed after administration of intravenous contrast. Oral contrast was administered. Coronal and sagittal reformatted images were obtained. Contrast dose: 100 mL Omnipaque 350 Radiation dose: Total exam DLP = 1120.65 mGy-cm. This CT exam was performed using one or more of the following dose reduction techniques: Automated exposure control, adjustment of the mA and/or kV according to patient size, and/or use of iterative reconstruction technique. FINDINGS: LOWER THORAX: There are trace pleural effusions and confluent airspace disease in the lower lobes. LIVER: Normal in size with homogeneous enhancement. No gross lesion or ductal dilatation. GALLBLADDER AND BILE DUCTS: No calcified gallstones. PANCREAS: Normal in size with homogeneous enhancement. No gross lesion or ductal dilatation. SPLEEN: Normal in size with homogeneous enhancement. ADRENALS: No discrete nodules. KIDNEYS AND URETERS: Normal in size with homogeneous enhancement. No hydronephrosis. No solid mass. There are small simple cysts in both kidneys. VASCULATURE: The aorta is tortuous. No aortic aneurysm. BOWEL: There is a PEG tube in the stomach. At the site of insertion of the PEG tube, there is mild thickening and soft tissue indent ELLIOT abdominal wall. There is also a small focus of air. No definite evidence of abscess or fluid collection. The small bowel loops are normal in caliber. There is moderate amount of stool in the colon. APPENDIX: Normal appendix. PERITONEUM: No free fluid. No free air. LYMPH NODES: No enlarged lymph nodes. BLADDER: Grossly normal in appearance. REPRODUCTIVE: Unremarkable. BONES: No acute fracture. Severe diffuse bone demineralization and advanced multilevel degenerative disc disease. Status post right hip arthroplasty. OTHER FINDINGS: None. IMPRESSION: Status post trach tube, soft tissue thickening and a focus of air in the anterior abdominal wall at the site of tube tract without evidence for abscess or drainable fluid collection. Constipation. No acute findings.
[2018-04-18 17:23] LABS: URINE BILIRUBIN NEGATIVE (NEGATIVE); URINE BLOOD NEGATIVE (NEGATIVE); URINE GLUCOSE (UA) NEGATIVE (NEGATIVE); URINE LEUKOCYTE ESTERASE NEGATIVE Leu/uL (NEGATIVE); URINE PROTEIN TRACE mg/dL (<30 mg/dL)
[2018-04-18 17:24] LABS: URINE APPEARANCE CLEAR (CLEAR); URINE COLOR YELLOW (YELLOW)
[2018-04-18 17:28] LABS: URINE RBC NEGATIVE /hpf (0-2); URINE WBC NEGATIVE /hpf (0-6)
[2018-04-18] MEDS: Sodium Chloride 0.9% 1,000 ML IV SCH (18:26)
[2018-04-18] MEDS ORDERED: Cefepime 1gm in NS 100ml 1 GM/100 ML BAG IVPB SCH (22:00)
[2018-04-18] MEDS ORDERED: Linezolid 600 mg in D5W 300 ml 600 MG/300 ML BAG IVPB SCH (22:00)
[2018-04-18] MEDS: Meropenem IV 1 gm in NS 50 ML IVPB SCH (22:17)
[2018-04-18 23:34] VITALS: BMI 26.4
[2018-04-19] MEDS: Sodium Chloride 0.9% 1,000 ML IV SCH (05:33)
[2018-04-19] MEDS: Meropenem IV 1 gm in NS 50 ML IVPB SCH ×3 (05:33→22:29)
[2018-04-19] MEDS ORDERED: Bacitracin 500 Units/gm Oint Foilpak UD ONE (07:21)
[2018-04-19] MEDS ORDERED: Bacitracin 500 Units/gm Oint Foilpak UD TOP ONE (08:04)
[2018-04-19 08:28] LABS: HEMOGLOBIN 7.5 g/dL (14.0-18.0); MEAN CELL VOLUME 91.6 fl (80.0-105.0); MEAN CORPUSCULAR HEMOGLOBIN 26.1 pg (25.0-35.0); MEAN CORPUSCULAR HGB CONC 28.5 g/dl (31.0-37.0); MEAN PLATELET VOLUME 10.5 fl (7.0-11.0); RBC 2.87 10^6/uL (3.5-6.1); RED CELL DISTRIBUTION WIDTH 19.4 % (11.5-14.5); WHITE BLOOD COUNT 10.7 10^3/ul (4.5-11.0)
--- NOTE | 2018-04-19 08:46 | CARD ---
APPROVED REPORT EKG Measurement Heart [id number] <Conclusion> Sinus tachycardia Incomplete right bundle branch block Left anterior fascicular block No change
--- NOTE | 2018-04-19 08:58 | CP.PCM.CON ---
Addendum entered and electronically signed by Yosi Manuel DO 04/19/18 11:01 : PGY6 GI Fellow Addendum: Following placement of PEG and abdominal plain film with gastrograffin, patient inadvertently removed PEG. Replaced with larger, 22F EndoVive at bedside by same technique. Plan for repeat abdominal plain film with gastrograffin to confirm placement. Do not use PEG at this time. 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 PEG placed surgically in September 2017 as was not amenable to endoscopic or IR placement; exchanged at bedside in February 2018 for malfunction. According to records, PEG site was cultured one month prior to arrival with an ESBL organism growing. Patient had been on Amoxicillin/Vancomycin for one month's duration. On arrival in the ED, PEG tube dislodged. CT scan of the area showed some local soft tissue thickening without overt sign of abscess or fluid collection. The skin does have local irritation from leakage of gastric contents which are actively leaking from the site at time of examination. 12 system ROS cannot be completed given deficits PMHx: See HPI PSHx: Surgically placed PEG FHx: Unable to assess Social: No history of tobacco, EtOH or illicit drug use per EMR Endo: EGD - 09/2017 - attempted PEG aborted as 1:1 could not be achieved Past Patient History - Infectious Disease Hx of Infectious Diseases: None - Tetanus Immunizations Tetanus Immunization: Unknown - Past Social History Smoking Status: Unknown If Ever Smoked - CARDIAC Hx Cardiac Disorders: Yes Hx Cardia Arrhythmia: Yes Hx Hypertension: Yes Hx Peripheral Edema: Yes (ble +1) - PULMONARY Hx Respiratory Disorders: No - NEUROLOGICAL Hx Neurological Disorder: Yes (ams) HX Cerebrovascular Accident: Yes (hemiplegia, aphasia) Other/Comment: syncopal episode 22 yrs ago, no verbal response - HEENT Hx HEENT Problems: Yes 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", right ear hearing loss - RENAL Hx Chronic Kidney Disease: No - ENDOCRINE/METABOLIC Hx Endocrine Disorders: No - HEMATOLOGICAL/ONCOLOGICAL Hx Blood Disorders: No Hx Cancer: (denies prostate ca) - INTEGUMENTARY Hx Dermatological Problems: Yes Other/Comment: bleeding from g tube site surrounded by excoriated skin, dark brown drainage,dark dry red scab r fa near wrist, multiple red brown open wounds left foot, multiple open wound and large necrotic wound to right foot, sacrum open wound, knees red dry skin, see skin assesment of admission assesment for mor details - MUSCULOSKELETAL/RHEUMATOLOGICAL Hx Falls: No - GASTROINTESTINAL Hx Gastrointestinal Disorders: Yes Other/Comment: esophagitis, gastritis, gas, uses stool softeners - GENITOURINARY/GYNECOLOGICAL Hx Genitourinary Disorders: Yes Hx Prostate Problems: Yes (denies ca, had prostate sx 2 months ago) Hx Urinary Tract Infection: Yes Other/Comment: dribbling since prostate sx when coughing or laughing - PSYCHIATRIC Hx Substance Use: No - SURGICAL HISTORY Hx Surgeries: Yes Other/Comment: left hip replacement 2000 - ANESTHESIA Hx Anesthesia: Yes Hx Anesthesia Reactions: No Hx Malignant Hyperthermia: No Meds Allergies/Adverse Reactions: Allergies Allergy/AdvReac Type Severity Reaction Status Date / Time No Known Allergies Allergy Verified 10/08/17 01:41 - Medications Medications: Current Medications Enoxaparin Sodium (Lovenox) 40 mg SC DAILY [facility] PRN Reason: Protocol Sodium Chloride (Sodium Chloride 0.9%) 1,000 mls @ 100 mls/hr IV .Q10H [facility] Last Admin: 04/19/18 05:33 Dose: 100 mls/hr Meropenem (Merrem Iv 1 Gm Premix) 50 mls @ 100 mls/hr IVPB Q8 [facility] PRN Reason: Protocol Stop: 04/27/18 22:01 Last Admin: 04/19/18 05:33 Dose: 100 mls/hr Physical Exam - Constitutional Appears: No Acute Distress, Confused, Chronically Ill - Eye Exam Eye Exam: PERRL - ENT Exam ENT Exam: Mucous Membranes Dry - Respiratory Exam Respiratory Exam: Clear to Auscultation Bilateral. absent: Rales, Rhonchi, Wheezes - Cardiovascular Exam Cardiovascular Exam: RRR, +S1, +S2 - GI/Abdominal Exam GI & Abdominal Exam: Normal Bowel Sounds, Soft. absent: Distended, Firm, Guarding, Hernia, Organomegaly, Rigid, Tenderness Additional comments: open wound at PEG site with leakage of gastric contents; local skin chemical irritation - Extremities Exam Extremities exam: Negative for: pedal edema Additional comments: contracted - Neurological Exam Neurological exam: Altered - Psychiatric Exam Psychiatric exam: Anxious - Skin Skin Exam: Dry, Warm Additional comments: erythema at site from chemical injury of gastric content leakage Results - Vital Signs Recent Vital Signs: Last Vital Signs Temp 98.3 F 04/19/18 06:00 Pulse 85 04/19/18 06:00 Resp 20 04/19/18 06:00 BP 98/62 L 04/19/18 06:00 Pulse Ox 98 04/19/18 06:00 - Labs Result Diagrams: 04/19/18 08:15 04/19/18 08:15 Labs: Laboratory Results - last 24 hr 04/18/18 04/19/18 16:56 08:15 WBC 10.7 RBC 2.87 L Hgb 7.5 L D Hct 26.3 L MCV 91.6 MCH 26.1 MCHC 28.5 L RDW 19.4 H Plt Count 314 MPV 10.5 Urine Color Yellow Urine Appearance Clear Urine pH 7.0 Ur Specific [place] <= 1.005 Urine Protein Trace H Urine Glucose (UA) Negative Urine Ketones Negative Urine Blood Negative Urine Nitrate Negative Urine Bilirubin Negative Urine Urobilinogen 1.0 H Ur Leukocyte Esterase Negative Urine RBC Negative Urine WBC Negative Assessment & Plan - Assessment and Plan (Free Text) Assessment: Patient is an 87yo male with PMHx significant for prior CVA with multiple residual deficits, 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 -PEG tube dislodgment -Concern for PEG site infection -Abnormal LFTs -Dehydration/Hypernatremia -Normocytic anemia -Dysphagia -H/O CVA with residual deficits Plan: -Keep PEG site clean, regularly changing gauze and daily Bacitracin -Site cultured -LFT elevation unclear, will send hepatitis serologies and autoimmune work up; possible etiologies include DILI, ischemic hepatopathy 2/2 hypotension - improved today -Trend LFTs -IV antibiotics noted - on Merem -PEG tube replaced at bedside with EndoVive 20F balloon replacement PEG -Will check placement with abdominal plain film + gastrograffin -Will require free water flushes to improve hyponatremia -Case discussed with Dr Valdez and Dr Mcleod Bedside Procedure Note: Patient abdomen examined and when bandages removed, note open PEG site with active leakage of gastric contents. Local skin chemical irritation. No pus, blood, obvious infection noted. Patient currently on IV Merem and previously Amoxicillin/Vanco as outpatient. An EndoVive 20F was tested for balloon patency. With successful inflation, decision was made to insert replacement PEG via open tract site. Tube was placed without any resistance and balloon was inflated with 6cc. Secured at 3cm at the skin level. No discomfort appreciated at site following placement. Plan to take plain film of abdomen with gastrograffin via PEG tube now. Do not use PEG until placement confirmed. - Date & Time Date: 04/19/18 Time: 07:00 <Lance Valdez - Last Filed: 04/19/18 12:35> Meds - Medications Medications: Current Medications Enoxaparin Sodium (Lovenox) 40 mg SC DAILY [facility] PRN Reason: Protocol Last Admin: 04/19/18 10:06 Dose: 40 mg Meropenem (Merrem Iv 1 Gm Premix) 50 mls @ 100 mls/hr IVPB Q8 [facility] PRN Reason: Protocol Stop: 04/27/18 22:01 Last Admin: 04/19/18 05:33 Dose: 100 mls/hr Dextrose/Sodium Chloride (Dextrose 5%/0.45% Ns 1000 Ml) 1,000 mls @ 125 mls/hr IV .Q8H [facility] Multivitamins/Vitamin C (Multi-Delyn Liquid) 15 ml PEG 0800 [facility] Thiamine HCl (Vitamin B1 Inj) 100 mg IV DAILY [facility] Results - Vital Signs Recent Vital Signs: Last Vital Signs Temp 98.3 F 04/19/18 06:00 Pulse 85 04/19/18 06:00 Resp 20 04/19/18 06:00 BP 98/62 L 04/19/18 06:00 Pulse Ox 98 04/19/18 06:00 - Labs Result Diagrams: 04/19/18 08:15 04/19/18 08:15 Labs: Laboratory Results - last 24 hr 04/18/18 04/19/18 04/19/18 16:56 08:15 08:15 WBC 10.7 RBC 2.87 L Hgb 7.5 L D Hct 26.3 L MCV 91.6 MCH 26.1 MCHC 28.5 L RDW 19.4 H Plt Count 314 MPV 10.5 Sodium 160 H* Potassium 3.8 Chloride 123 H Carbon Dioxide 30 Anion Gap 10 BUN 32 H Creatinine 0.7 L Est GFR ( Amer) > 60 Est GFR (Non-Af Amer) > 60 Random Glucose 101 Calcium 8.2 L Iron TIBC % Saturation Total Bilirubin 0.3 AST 115 H D ALT 188 H Alkaline Phosphatase 206 H D Total Protein 6.3 Albumin 2.4 L Globulin 3.9 Albumin/Globulin Ratio 0.6 L Urine Color Yellow Urine Appearance Clear Urine pH 7.0 Ur Specific [place] <= 1.005 Urine Protein Trace H Urine Glucose (UA) Negative Urine Ketones Negative Urine Blood Negative Urine Nitrate Negative Urine Bilirubin Negative Urine Urobilinogen 1.0 H Ur Leukocyte Esterase Negative Urine RBC Negative Urine WBC Negative 04/19/18 11:10 WBC RBC Hgb Hct MCV MCH MCHC RDW Plt Count MPV Sodium Potassium Chloride Carbon Dioxide Anion Gap BUN Creatinine Est GFR ( Amer) Est GFR (Non-Af Amer) Random Glucose Calcium Iron 25 L TIBC 264 % Saturation 10 L Total Bilirubin AST ALT Alkaline Phosphatase Total Protein Albumin Globulin Albumin/Globulin Ratio Urine Color Urine Appearance Urine pH Ur Specific [place] Urine Protein Urine Glucose (UA) Urine Ketones Urine Blood Urine Nitrate Urine Bilirubin Urine Urobilinogen Ur Leukocyte Esterase Urine RBC Urine WBC Attending/Attestation - Attestation I have personally seen and examined this patient.: Yes I have fully participated in the care of the patient.: Yes I have reviewed all pertinent clinical information: Yes Notes (Text): 04/19/18 12:27 I have seen and examined patient with GI fellow. Agree with above documentation with the following additions. In brief, this is an 87 year old male with history of CVA, aphasic at baseline, visual impairment, who was [facility] for evaluation of suspected PEG site infection. Patient himself is not able to participate with meaningful conversation, additional information obtained via chart review, discussion with nursing staff and patient family members. Gastrostomy tube was initially placed by surgical team in 2016 and exchanged at bedside in February secondary to malfunction. There is reported erythema and malodorous fluid content leaking from gastrostomy site over the past few days. There is no reported abdominal pain, vomiting, fever/ chills. During time of examination, prior gastrostomy tube was removed and new tube was exchanged at bedside as indicated in above procedure note. CVA, aphasia Visual impairment Gastrostomy tube dislodged, s/p bedside replacement Cellulitis without presence of abscess on recent CT imaging Transaminitis LE ulcer - Obtain abdominal XR with gastrograffin to ensure proper gastrostomy tube placement - Continue with antibiotic therapy - Change PEG site dressing daily with application of bacitracin ointment - Obtain viral hepatitis panel - Continue to monitor LFTs and avoid hepatotoxic therapies - Will continue to monitor patient clinical course
[2018-04-19 08:59] LABS: ALB/GLOB RATIO 0.6 (1.1-1.8); ALBUMIN 2.4 g/dL (3.0-4.8); ALT/SGPT 188 U/L (7-56); AST/SGOT 115 U/L (17-59); BLOOD UREA NITROGEN 32 mg/dL (7-21); CALCIUM 8.2 mg/dL (8.4-10.5); GFR AFRICAN-AMERICAN > 60; GFR NON-AFRICAN AMERICAN > 60
[2018-04-19] MEDS ORDERED: Iohexol 240 (50 ml) ONE ×2 (09:46→12:09)
[2018-04-19] MEDS: Enoxaparin 40 mg Syringe SC SCH (10:06)
[2018-04-19] MEDS ORDERED: Thiamine 100 mg/ml Inj IV SCH (10:45)
--- NOTE | 2018-04-19 11:40 | PN ---
DATE: 04/19/2018 SUBJECTIVE: I saw him with the Gastroenterology fellow. He placed the PEG tube back in at bedside, that is a new tube. He is having some skin excoriations, probably from the abscess from the stomach. He is also on IV antibiotics by Infectious Disease for his ESBL in his discharge from the abdomen. He is currently on Lovenox, Merrem and IV fluids. I will put him on his regular medications, now that his G-tube is back in. He is nonverbal and his eyes are open, at his baseline. He is contracted and bedridden. PHYSICAL EXAMINATION: VITAL SIGNS: He has a 98.3 temp, 85 pulse, 98/62 blood pressure, 20 respiratory rate, 98% O2 saturation on nasal cannula. He is a DNR/DNI now. HEENT: Head is normocephalic and atraumatic. HEART: Regular rate. LUNGS: Decreased breath sounds. ABDOMEN: Soft, now with a feeding tube back in place. EXTREMITIES: Contracted. SKIN: Poor. LABORATORY DATA: He has a 12.8 white count, hemoglobin is 9.7, platelets of 381. We do not have today's labs yet, we will see how that pans out. ASSESSMENT AND PLAN: I am waiting to see what his sodium is up to because he might need to come back in if it does not decrease and I am hoping to possibly discharge him back to [facility] to continue with IV antibiotics tomorrow. I will arrange case management. I will talk to Infectious Disease about the length of time he needs to be on IV antibiotics. We are also checking his with his high sodium, hopefully that will come down. Yuri Mcleod DO MTDSumit
--- NOTE | 2018-04-19 13:10 | RAD ---
HISTORY: PEG replacement, pt pulled out - w gastrograffin COMPARISON: No prior. FINDINGS: BOWEL: Plain radiographic examination of the abdomen is performed following administration of water-soluble contrast material through the percutaneous gastrostomy tube. This was not performed under fluoroscopic monitoring. There is a small amount of residual contrast material seen within the gastric lumen. Contrast material is seen within the small intestine. There is no evidence of free intraperitoneal contrast material. The gastrostomy tube appears appropriately positioned within the gastric lumen. BONES: Normal. OTHER FINDINGS: None. IMPRESSION: Percutaneous gastrostomy tube positioning appears appropriate.
[2018-04-19] MEDS: Dextrose 5%/0.45% NS 1,000 ML IV SCH (13:13)
--- NOTE | 2018-04-19 13:17 | RAD ---
HISTORY: EVAL PEG PLACEMENT - W GASTROGRAFFIN COMPARISON: No prior. FINDINGS: BOWEL: A psychologist chief radiograph demonstrates the bowel gas pattern to be unremarkable. A percutaneous gastrostomy tube is seen in a left parasagittal position at the L3 vertebral level. Water-soluble contrast material was administered via the gastrostomy tube. Contrast material is seen within the stomach and proximal small bowel. There is no evidence of extravasation of contrast material into the peritoneal cavity. Please note that there is an atypical mucosal pattern of the most distally opacified loop of proximal jejunum, with so-called thumb-printing suggesting nonspecific mucosal edema. . This is a nonspecific finding but further evaluation is suggested. BONES: Normal. OTHER FINDINGS: None. IMPRESSION: No evidence of extravasation into the peritoneal cavity. Appropriate position of percutaneous gastrostomy tube. Thumbprinting of proximal jejunum noted, nonspecific.
[2018-04-19] MEDS ORDERED: Thiamine 100 MG in Sodium Chloride 0.9% 50 ML IV ONE (13:30)
--- NOTE | 2018-04-19 13:48 | CON ---
DATE: 04/19/2018 PULMONARY CONSULTATION REFERRING PHYSICIAN: Yuri Mcleod DO REASON FOR CONSULTATION: Pneumonia. History is obtained via extensive discussion with the night nurse. I have also reviewed the chart at length. HISTORY OF PRESENT ILLNESS: The patient is a chronically ill 87-year-old male, with past medical history significant for cerebrovascular accident, hemiplegia, gastrostomy, blindness, aphasia, hypertension, who was transferred from the residential - to [facility] - for increased PEG tube site drainage. As per the emergency room notes, culture of the drainage was done and was positive for ESBL. The patient did present to the emergency room with fevers. He was thus admitted for additional evaluation. Again, I did discuss the case with the night nurse at length. There have been no signs of shortness of breath, cough, or sputum production. There is no history of chest pain, coughing up of blood, or chest pain - made worse with deep respirations. As above, the patient did present with fevers. No history of chills or infectious exposure. No history of night sweats, weight loss or appetite changes prior to the above events. No history of leg or calf pains. No history of syncope or diaphoresis. No history of recent travel or trauma. REVIEW OF SYSTEMS: No history of nausea, vomiting or diarrhea. No acute urinary symptoms. Rest of the review of systems negative. ALLERGIES: NO KNOWN ALLERGIES. SOCIAL HISTORY: Positive for former tobacco usage. No alcohol. FAMILY HISTORY: No inheritable diseases. HOME MEDICATIONS: Include Tobradex eyedrops, Crestor, Protonix, omeprazole, Lopressor, aspirin, Eliquis. PHYSICAL EXAMINATION: GENERAL: The patient appears comfortable this morning. He is not short of breath at rest. VITAL SIGNS: Temperature is 98.2, pulse 87, respirations 19, blood pressure 98/63. Oxygen saturation on nasal cannula is 97%-100%. HEENT: Normocephalic, atraumatic. No JVD. CARDIOVASCULAR: Systolic ejection murmur at the lower left sternal border. No S3 gallop. LUNGS: Decreased breath sounds at the bases with crackles. No rhonchi. No wheezing. EXTREMITIES: No clubbing, cyanosis or edema. Calves are nontender to palpation. GASTROINTESTINAL: Abdomen is soft, nontender. Bowel sounds are positive. SKIN: There is positive erythema at the previous PEG tubes site. There are also several pressure sores. There is no acute rash. NEUROLOGIC: Limited at the present time. PERTINENT LABORATORY DATA: Chest x-ray was done and reviewed. There is airspace disease noted at the left lung base. Abdominal and pelvic CAT scan was also done. On the CAT scan, there are small bilateral pleural effusions. At the right base, there is minimal airspace disease consistent with atelectasis. However, at the left base, there is increased airspace with air bronchograms consistent with pneumonia. CBC: White count 12.8, hemoglobin 9.7, hematocrit 33.3, platelets of 381,000. Complete metabolic profile: Sodium 159, chloride 118, carbon dioxide 38, BUN 41, creatinine 0.7, glucose 133, calcium 8.3, AST 376, ALT 324, alkaline phosphatase 270, albumin 2.9. Rest of the metabolic profiles within normal limits. IMPRESSION: 1. Sepsis syndrome. 2. Left lower lobe pneumonia. 3. Infected percutaneous endoscopic gastrostomy tube site. 4. Anemia. 5. Multiple electrolyte abnormalities. PLAN: Again, I did discuss the case with the night nurse at length. I have also reviewed the chart at length. The patient presents to [facility] - transferred from the residential - with suspected PEG tube site infection. As above, drainage was cultured and positive for ESBL. The patient was then admitted for additional evaluation and treatment. As per the history, and night nurse, there have been no signs of shortness of breath or cough. I did review the chest x-ray and abdominal CAT scan. On the abdominal CAT scan, there are a very small bilateral pleural effusions. There is airspace disease at the right base - most consistent with atelectasis. However, there is increased airspace with air bronchograms at the left base consistent with pneumonia. Dr. Barr (Infectious Disease) has been consulted on the case. The patient was given antibiotic therapy in the emergency room. The temperatures are now resolving. Repeat a.m. labs are pending. Procalcitonin is also pending. GI and Cardiology evaluations have been ordered. I would also consider a Renal evaluation at this point in time. Clinical status of the patient does appear improve - compared to the initial status. However, the overall/future status/prognosis for this patient appeared poor. I will discuss the above with Dr. Mcleod. Thank you very much for this pulmonary consultation. Ari Valentin MD
--- NOTE | 2018-04-19 14:47 | CP.PCM.CON ---
History of Present Illness - History of Present Illness History of Present Illness: Nephrology Consultation Note: Assessment: critical Hypernatremia with very low urine SG (dilute urine) favors Diabetes insipidus and likely superimposed limited fluid intake due to PEG tube dysfunction leading to dehydration and hypovolemia metabolic alkalosis with respi compensation Anemia Abnormal LFT cellulitis around PEG tube hypertension, hyperlipidemia, CVA with residual deficit, aphasia, visual loss, non communicative, custodial NH resident Plan maintain hemodynamics stable. Patient not on ACEI/ARB due to low BP. Monitor Input/Output, daily weights and electrolytes IVF as D5 0.45% saline @ 125 ml/hr started thiamine and MVI supplementation will start DDAVP NS 10 mcg bid PRBC as needed Check urine sodium and urine osmol Check for 25-OH vitamin D and anemia work up with TSAT/Ferritin, serum protein electrophoresis with immunofixation, B12 and folate level Dose meds/antibiotics for normal GFR. Glycemic control, aspiration/fall precautions Further work up/management as per primary team Thanks for allowing me to participate in care of your patient. Will follow patient with you. Please call if any Qs Dr Carter Juarez Office: [phone] Chief Complaint; Unable to obtain reason for consult: Hypernatremia HPI: Pt is a 87 M with hx of hypertension, hyperlipidemia, CVA with residual deficit, aphasia, visual loss, non communicative, custodial NH resident, recent hospitalized for infection around PEG tube came with drainage around peg tube renal consult for hypernatremia pt unable to provide any hx ROS: unable to obtain Physical Examination: General Appearance: Comfortable, in no acute respiratory distress, elderly male , contracted extremities Vitals reviewed and noted as below Head; Atraumatic, normocephalic ENT: unable EYES: unable Neck; supple no lymphadenopathy, no thyromegaly or bruit Lungs: Normal respiratory rate/effort. Breath sounds bilateral equal and clear anteriorly except some rales Rt side Heart: Normal rate. s1s2 normal. No rub or gallop. Extremities: no edema. No varicose veins Neurological: Patient is non communicative with contractures Skin: Warm and dry. Normal turgor. No rash. Palpitation: Normal elasticity for age Abdomen: limited due to his position and abdominal binder Psych: unable MSK: no joint tenderness or swelling. Digits and nails normal, no deformity : unable Labs/imaging reviewed. Past medical history, past surgical history, family history, social history, allergy reviewed and noted as below Family hx: unable Work up: UA SG <1.005 Past Patient History - Infectious Disease Hx of Infectious Diseases: None - Tetanus Immunizations Tetanus Immunization: Unknown - Past Social History Smoking Status: Unknown If Ever Smoked - CARDIAC Hx Cardiac Disorders: Yes Hx Cardia Arrhythmia: Yes Hx Hypertension: Yes Hx Peripheral Edema: Yes (ble +1) - PULMONARY Hx Respiratory Disorders: No - NEUROLOGICAL Hx Neurological Disorder: Yes (ams) HX Cerebrovascular Accident: Yes (hemiplegia, aphasia) Other/Comment: syncopal episode 22 yrs ago, no verbal response - HEENT Hx HEENT Problems: Yes 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", right ear hearing loss - RENAL Hx Chronic Kidney Disease: No - ENDOCRINE/METABOLIC Hx Endocrine Disorders: No - HEMATOLOGICAL/ONCOLOGICAL Hx Blood Disorders: No Hx Cancer: (denies prostate ca) - INTEGUMENTARY Hx Dermatological Problems: Yes Other/Comment: bleeding from g tube site surrounded by excoriated skin, dark brown drainage,dark dry red scab r fa near wrist, multiple red brown open wounds left foot, multiple open wound and large necrotic wound to right foot, sacrum open wound, knees red dry skin, see skin assesment of admission assesment for mor details - MUSCULOSKELETAL/RHEUMATOLOGICAL Hx Falls: No - GASTROINTESTINAL Hx Gastrointestinal Disorders: Yes Other/Comment: esophagitis, gastritis, gas, uses stool softeners - GENITOURINARY/GYNECOLOGICAL Hx Genitourinary Disorders: Yes Hx Prostate Problems: Yes (denies ca, had prostate sx 2 months ago) Hx Urinary Tract Infection: Yes Other/Comment: dribbling since prostate sx when coughing or laughing - PSYCHIATRIC Hx Substance Use: No - SURGICAL HISTORY Hx Surgeries: Yes Other/Comment: left hip replacement 2000 - ANESTHESIA Hx Anesthesia: Yes Hx Anesthesia Reactions: No Hx Malignant Hyperthermia: No Meds Allergies/Adverse Reactions: Allergies Allergy/AdvReac Type Severity Reaction Status Date / Time No Known Allergies Allergy Verified 10/08/17 01:41 - Medications Medications: Current Medications Enoxaparin Sodium (Lovenox) 40 mg SC DAILY ATA PRN Reason: Protocol Last Admin: 04/19/18 10:06 Dose: 40 mg Meropenem (Merrem Iv 1 Gm Premix) 50 mls @ 100 mls/hr IVPB Q8 ATA PRN Reason: Protocol Stop: 04/27/18 22:01 Last Admin: 04/19/18 05:33 Dose: 100 mls/hr Dextrose/Sodium Chloride (Dextrose 5%/0.45% Ns 1000 Ml) 1,000 mls @ 125 mls/hr IV .Q8H ATA Multivitamins/Vitamin C (Multi-Delyn Liquid) 15 ml PEG 0800 [facility] Thiamine HCl (Vitamin B1 Inj) 100 mg IV DAILY [facility] Results - Vital Signs Recent Vital Signs: Last Vital Signs Temp 98.3 F 04/19/18 06:00 Pulse 85 04/19/18 06:00 Resp 20 04/19/18 06:00 BP 98/62 L 04/19/18 06:00 Pulse Ox 98 04/19/18 06:00 - Labs Result Diagrams: 04/19/18 08:15 04/19/18 08:15 Labs: Laboratory Results - last 24 hr 04/18/18 04/18/18 04/19/18 16:56 21:07 08:15 WBC 10.7 RBC 2.87 L Hgb 7.5 L D Hct 26.3 L MCV 91.6 MCH 26.1 MCHC 28.5 L RDW 19.4 H Plt Count 314 MPV 10.5 Sodium Potassium Chloride Carbon Dioxide Anion Gap BUN Creatinine Est GFR ( Amer) Est GFR (Non-Af Amer) Random Glucose Calcium Iron TIBC % Saturation Total Bilirubin AST ALT Alkaline Phosphatase Total Protein Albumin Globulin Albumin/Globulin Ratio Procalcitonin 0.32 Urine Color Yellow Urine Appearance Clear Urine pH 7.0 Ur Specific [place] <= 1.005 Urine Protein Trace H Urine Glucose (UA) Negative Urine Ketones Negative Urine Blood Negative Urine Nitrate Negative Urine Bilirubin Negative Urine Urobilinogen 1.0 H Ur Leukocyte Esterase Negative Urine RBC Negative Urine WBC Negative 04/19/18 04/19/18 08:15 11:10 WBC RBC Hgb Hct MCV MCH MCHC RDW Plt Count MPV Sodium 160 H* Potassium 3.8 Chloride 123 H Carbon Dioxide 30 Anion Gap 10 BUN 32 H Creatinine 0.7 L Est GFR ( Amer) > 60 Est GFR (Non-Af Amer) > 60 Random Glucose 101 Calcium 8.2 L Iron 25 L TIBC 264 % Saturation 10 L Total Bilirubin 0.3 AST 115 H D ALT 188 H Alkaline Phosphatase 206 H D Total Protein 6.3 Albumin 2.4 L Globulin 3.9 Albumin/Globulin Ratio 0.6 L Procalcitonin Urine Color Urine Appearance Urine pH Ur Specific [place] Urine Protein Urine Glucose (UA) Urine Ketones Urine Blood Urine Nitrate Urine Bilirubin Urine Urobilinogen Ur Leukocyte Esterase Urine RBC Urine WBC
--- NOTE | 2018-04-19 14:47 | HP ---
HISTORY OF PRESENT ILLNESS: This patient is an 87-year-old man who is now bedridden at [facility]. I saw him this morning and I sent him to [facility], I saw him in the [facility]. He is having an oozing from his G-tube site, I believe it is ESBL. He is an 87-year-old white man who is now on full code though at this time. 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 He has CVA, hemiplegia, gastrostomy tube, blindness, aphasia, hypertension. He had PEG tube site drainage. I understand that the PEG tube has been dislodged. He had drainage. He is on antibiotics in the correction, [facility]. He is on vancomycin and amoxicillin, and now he on IV antibiotics and closer evaluation. He is, for the most part, bedridden, nonverbal. He has had prostate cancer. He had left hip replacement in 2000. FAMILY HISTORY: Unknown. SOCIAL HISTORY: Unknown smoking history. He did drink alcohol - beers before and substance abuse that we know of. ALLERGIES: NO KNOWN DRUG ALLERGIES. REVIEW OF SYSTEMS: I cannot do review of systems because of dementia, he is nonverbal PHYSICAL EXAMINATION: GENERAL: He is thin, frail, contracted all 4 extremities, with a feeding tube with drainage. He is bedridden. VITAL SIGNS: He has 100.7 temp, 110 pulse, 16 respiratory rate, 93/54 blood pressure, 99% O2 saturation on oxygen. HEENT: His head is atraumatic, normocephalic. Throat is dry. NECK: Supple. HEART: Tachy with regular rate. LUNGS: Decreased breath sounds with very poor inspiration. ABDOMEN: Soft, positive bowel sounds diminished. EXTREMITIES: Have no edema. SKIN: There is black and brown discharge around the PEG tube site. NEUROLOGIC: He is nonverbal. does not respond to antibiotics. EKG shows sinus rhythm, 108 beats, right bundle branch block. CAT scan of the abdomen and pelvis shows status post PEG tube, soft tissue thickening, focus there in the anterior abdominal wall in the site of the tube tract. No evidence of abscess. On chest x-ray, air space disease in the left lung, could be atelectasis or pneumonia. He had multiple labs, 12.8 white count and high; 9.6 hemoglobin, 30.3 hematocrit, with 381 platelets. INR is 1.38. Sodium 159, potassium 4.5, BUN 41, creatinine 0.7, GFR is greater than 60, sugar is 133, calcium is 8.3, total bili is 0.4. AST is very high at 376, ALT is very high alkaline phosphatase is 270, total protein is 7.5. Urine is clear. MEDICATIONS: He is on the correction, aspirin, bacitracin, Crestor, Eliquis, Lopressor, Protonix and tobramycin G-tube start him on Eliquis, but I will put him on Lovenox, on cefepime. Have a consult with Infectious Disease, GI and Pulmonary. I will see him DNR/DNI tomorrow forms. He is here for feeding tube, which also was dislodged. Yuri Mcleod DO MTDD
[2018-04-19 17:11] LABS: IMMUNOGLOBULIN G 1820.8 mg/dL (700.0-1600.0); IMMUNOGLOBULIN M 117.6 mg/dL (40.0-230.0)
[2018-04-19 17:27] LABS: HEPATITIS B SURFACE AG Negative (NEGATIVE)
[2018-04-19 17:33] LABS: HEPATITIS A IGM NEGATIVE (NEGATIVE); HEPATITIS B CORE AB NEGATIVE (NEGATIVE)
[2018-04-19 17:34] LABS: FERRITIN 89.5 ng/mL
[2018-04-19 17:45] LABS: HEPATITIS C ANTIBODY NEGATIVE (NEGATIVE)
[2018-04-19 18:04] LABS: FOLATE > 20.0 ng/mL
[2018-04-19] MEDS: Desmopressin Nasal 10 mcg/Spray (5 ml) NS SCH (18:12)
[2018-04-19] MEDS: Linezolid 600 mg in D5W 300 ml 600 MG/300 ML BAG IVPB SCH (22:28)
--- NOTE | 2018-04-20 00:47 | CP.PCM.PN ---
<Navarro Young - Last Filed: 04/20/18 01:32> Subjective - Date & Time of Evaluation Date of Evaluation: 04/20/18 Time of Evaluation: 12:30 - Subjective Subjective: Nurse paged regarding SVT on the monitor with HR in 140's. Patient is with PMHx significant for prior CVA with multiple residual deficits, now aphasic at baseline, blindness. Pt admitted for infection surrounding PEG tube incision, and PEG tube reinsertion. ROS unobtainable as patient is non verbal. HR of 146, BP of 110/71 Plan: STAT EKG shows SVT with HR of 146 Carotid massage performed and did not break the episode of SVT Adenosine 6 mg x 1, and 12 mg x 2 was administered and SVT broke Patient currently hemodynamically stable with HR in the 80's Repeat EKG ordered HR of 88 BPM, NSR, LAFB, RBBB Final BP of 108/67 Cont to monitor Patient seen and plan was reviewed and discussed in detail with Dr Hebert. Objective - Vital Signs/Intake and Output Vital Signs (last 24 hours): Temp Pulse Resp BP Pulse Ox 98.2 F 82 18 98/62 L 98 04/19/18 20:38 04/19/18 20:38 04/19/18 20:38 04/19/18 20:38 04/19/18 06:00 Intake and Output: 04/19/18 04/20/18 18:59 06:59 Intake Total 2400 325 Balance 2400 325 - Medications Medications: Current Medications Adenosine (Adenosine 6 Mg/2 Ml Inj) 6 mg IVP STAT STA Stop: 04/20/18 00:42 Bacitracin (Bacitracin) 1 ea TOP DAILY ATA Stop: 04/26/18 10:01 Desmopressin Acetate (Ddavp) 10 mcg NS BID ATA Last Admin: 04/19/18 18:12 Dose: 10 mcg Enoxaparin Sodium (Lovenox) 40 mg SC DAILY ATA PRN Reason: Protocol Last Admin: 04/19/18 10:06 Dose: 40 mg Meropenem (Merrem Iv 1 Gm Premix) 50 mls @ 100 mls/hr IVPB Q8 ATA PRN Reason: Protocol Stop: 04/27/18 22:01 Last Admin: 04/19/18 22:29 Dose: 100 mls/hr Dextrose/Sodium Chloride (Dextrose 5%/0.45% Ns 1000 Ml) 1,000 mls @ 125 mls/hr IV .Q8H ATA Last Admin: 04/19/18 13:13 Dose: 125 mls/hr Thiamine HCl 100 mg/ Sodium (Chloride) 51 mls @ 102 mls/hr IV DAILY [facility] Linezolid (Zyvox 600mg/300ml D5w) 600 mg in 300 mls @ 200 mls/hr IVPB Q12 ATA PRN Reason: Protocol Stop: 04/28/18 22:01 Last Admin: 04/19/18 22:28 Dose: 200 mls/hr Multivitamins/Vitamin C (Multi-Delyn Liquid) 15 ml PEG 0800 [facility] - Labs Labs: 04/19/18 08:15 04/19/18 08:15 PT 16.0 SECONDS (9.4-12.5) H 04/18/18 11:50 INR 1.38 (0.93-1.08) H 04/18/18 11:50 APTT 32.4 Seconds (25.1-36.5) 04/18/18 11:50 <Sonja Hebert - Last Filed: 04/20/18 01:56> Objective - Vital Signs/Intake and Output Vital Signs (last 24 hours): Temp Pulse Resp BP Pulse Ox 98.2 F 82 18 98/62 L 98 04/19/18 20:38 04/19/18 20:38 04/19/18 20:38 04/19/18 20:38 04/19/18 06:00 Intake and Output: 04/19/18 04/20/18 18:59 06:59 Intake Total 2400 325 Balance 2400 325 - Medications Medications: Current Medications Bacitracin (Bacitracin) 1 ea TOP DAILY ATA Stop: 04/26/18 10:01 Desmopressin Acetate (Ddavp) 10 mcg NS BID [facility] Last Admin: 04/19/18 18:12 Dose: 10 mcg Enoxaparin Sodium (Lovenox) 40 mg SC DAILY ATA PRN Reason: Protocol Last Admin: 04/19/18 10:06 Dose: 40 mg Meropenem (Merrem Iv 1 Gm Premix) 50 mls @ 100 mls/hr IVPB Q8 ATA PRN Reason: Protocol Stop: 04/27/18 22:01 Last Admin: 04/19/18 22:29 Dose: 100 mls/hr Dextrose/Sodium Chloride (Dextrose 5%/0.45% Ns 1000 Ml) 1,000 mls @ 125 mls/hr IV .Q8H ATA Last Admin: 04/19/18 13:13 Dose: 125 mls/hr Thiamine HCl 100 mg/ Sodium (Chloride) 51 mls @ 102 mls/hr IV DAILY [facility] Linezolid (Zyvox 600mg/300ml D5w) 600 mg in 300 mls @ 200 mls/hr IVPB Q12 ATA PRN Reason: Protocol Stop: 04/28/18 22:01 Last Admin: 04/19/18 22:28 Dose: 200 mls/hr Multivitamins/Vitamin C (Multi-Delyn Liquid) 15 ml PEG 0800 [facility] - Labs Labs: 04/19/18 08:15 04/19/18 08:15 PT 16.0 SECONDS (9.4-12.5) H 04/18/18 11:50 INR 1.38 (0.93-1.08) H 04/18/18 11:50 APTT 32.4 Seconds (25.1-36.5) 04/18/18 11:50 Attending/Attestation - Attestation I have personally seen and examined this patient.: Yes I have fully participated in the care of the patient.: Yes I have reviewed all pertinent clinical information, including history, physical exam and plan: Yes Notes (Text): 04/20/18 01:36 Addendum:as noted pt is non verbal Neck No JVD Lungs:clear Heart:S1S2 regular Abd:dressing at site of Peg tube insertion soaked in dark brown blood Skin is warm ,dry.Multiple ulcers noted on lower extremities Contractures of extremities noted. After administration of 3 doses of Adenosine,pt's moniter showed NSR in the 80s.EKG was repeated.It cofirmed the same. IMP:SVT PLAN:Will check Mag level stat
[2018-04-20] MEDS ORDERED: Metoprolol 1 mg/ml Inj IVP ONE ×3 (01:12→04:54)
[2018-04-20] MEDS ORDERED: Amiodarone 150 mg/D5W 100 ml 150 MG/100 ML BAG IVPB ONE ×2 (05:38→06:15)
[2018-04-20] MEDS: Metoprolol 1 mg/ml Inj IVP ONE ×2 (05:40→07:50)
--- NOTE | 2018-04-20 05:50 | CP.PCM.PN ---
Addendum entered and electronically signed by Bill Selby DO 04/20/18 07:10 : Disregard Prior Physical Exam, refer to this PE: General: Non-verbal Neck: JVD negative Pulm: CTAB CV: S1, S2, tachycardia, regular rhythm Abdomen: Dressing around site of GT tube insertion Extremities: Multiple ulcers on lower extremities Neuro: Non-verbal with contractures of extremities Skin: Multiple ulcers on lower extremities Disregard prior plan, refer to this plan: Adenosine 6 mg was given. Rhythm returned to NSR, HR dropped to 80's, and SBP lele to 120's. Patient was then given Lopressor 2.5 mg IVP in attempt to prevent reoccurrence. Rhythm remained in NSR and BP was stable for approximately 20-30 minutes, but then went into SVT again with a rate in the 130's. Thereafter, vital signs were HR 136, BP 65/42. EKG ordered, which showed tachycardia with rate of 137. Amiodarone IVPB was ordered. But before it was given he went into NSR and BP improved with SBP 140's. Before ICU consult was considered, he converted back into NSR with stable BP 140 's. Original Note: <Bill Selby - Last Filed: 04/20/18 06:37> Subjective - Date & Time of Evaluation Date of Evaluation: 04/20/18 Time of Evaluation: 05:43 - Subjective Subjective: 87 yo M admitted for infected/leaking PEG tube was found to be in SVT around midnight and required multiple doses of adenosine, which he tolerated well as vital signs were stable and rhythm returned to NSR. Patient went into SVT again. Patient went into SVT again around 4:45 am with HR in the 140's and SBP in the 80's. Objective - Vital Signs/Intake and Output Vital Signs (last 24 hours): Temp Pulse Resp BP Pulse Ox 97.6 F 86 19 120/66 94 L 04/20/18 00:01 04/20/18 04:55 04/20/18 00:01 04/20/18 04:55 04/20/18 00:01 Intake and Output: 04/19/18 04/20/18 18:59 06:59 Intake Total 2400 325 Balance 2400 325 - Medications Medications: Current Medications Bacitracin (Bacitracin) 1 ea TOP DAILY ATA Stop: 04/26/18 10:01 Desmopressin Acetate (Ddavp) 10 mcg NS BID [facility] Last Admin: 04/19/18 18:12 Dose: 10 mcg Enoxaparin Sodium (Lovenox) 40 mg SC DAILY ATA PRN Reason: Protocol Last Admin: 04/19/18 10:06 Dose: 40 mg Meropenem (Merrem Iv 1 Gm Premix) 50 mls @ 100 mls/hr IVPB Q8 ATA PRN Reason: Protocol Stop: 04/27/18 22:01 Last Admin: 04/19/18 22:29 Dose: 100 mls/hr Dextrose/Sodium Chloride (Dextrose 5%/0.45% Ns 1000 Ml) 1,000 mls @ 125 mls/hr IV .Q8H [facility] Last Admin: 04/19/18 13:13 Dose: 125 mls/hr Thiamine HCl 100 mg/ Sodium (Chloride) 51 mls @ 102 mls/hr IV DAILY [facility] Linezolid (Zyvox 600mg/300ml D5w) 600 mg in 300 mls @ 200 mls/hr IVPB Q12 ATA PRN Reason: Protocol Stop: 04/28/18 22:01 Last Admin: 04/19/18 22:28 Dose: 200 mls/hr Amiodarone HCl/Dextrose (Nexterone 150 Mg In Dextrose 100 Ml (Premix)) 150 mg in 100 mls @ 600 mls/hr IVPB ONCE ONE PRN Reason: Protocol Stop: 04/20/18 05:47 Multivitamins/Vitamin C (Multi-Delyn Liquid) 15 ml PEG 0800 [facility] - Labs Labs: 04/19/18 08:15 04/19/18 08:15 PT 16.0 SECONDS (9.4-12.5) H 04/18/18 11:50 INR 1.38 (0.93-1.08) H 04/18/18 11:50 APTT 32.4 Seconds (25.1-36.5) 04/18/18 11:50 - Constitutional Appears: Confused - Head Exam Head Exam: ATRAUMATIC, NORMAL INSPECTION, NORMOCEPHALIC - Eye Exam Eye Exam: Normal appearance - ENT Exam ENT Exam: Mucous Membranes Dry - Neck Exam Neck Exam: Normal Inspection - Respiratory Exam Respiratory Exam: Clear to Ausculation Bilateral. absent: Rales, Rhonchi, Wheezes - Cardiovascular Exam Cardiovascular Exam: RRR, +S1, +S2. absent: Gallop, Rubs, Murmur - GI/Abdominal Exam GI & Abdominal Exam: Soft. absent: Distended, Guarding, Tenderness, Rebound - Extremities Exam Extremities Exam: Normal Inspection - Back Exam Back Exam: NORMAL INSPECTION - Neurological Exam Neurological Exam: Altered, Awake. absent: Oriented x3 - Skin Skin Exam: Dry, Intact, Normal Color, Warm Assessment and Plan - Assessment and Plan (Free Text) Assessment: Recurrent SVT Plan: Adenosine 6 mg was given. Rhythm returned to NSR, HR dropped to 80's, and SBP lele to 120's. Patient was then given Lopressor 2.5 mg IVP to prevent reoccurrence. Vitals remained stable for approximately 20-30 minutes, but then went into SVT again with a rate in the 130's. At this point, vital signs were HR 136, BP 65/42. Amiodarone bolus was ordered. Patient was then referred to Dr. Evette White for Amiodarone drip vs Cardioversion and for ICU transfer. Dr. White stated she would decide after response to bolus of Amiodarone. <Sonja Hebert - Last Filed: 04/20/18 07:42> Objective - Vital Signs/Intake and Output Vital Signs (last 24 hours): Temp Pulse Resp BP Pulse Ox 97.8 F 86 20 111/51 L 90 L 04/20/18 06:00 04/20/18 06:00 04/20/18 06:00 04/20/18 06:00 04/20/18 06:00 Intake and Output: 04/20/18 04/20/18 06:59 18:59 Intake Total 325 Balance 325 - Medications Medications: Current Medications Bacitracin (Bacitracin) 1 ea TOP DAILY [facility] Stop: 04/26/18 10:01 Desmopressin Acetate (Ddavp) 10 mcg NS BID [facility] Last Admin: 04/19/18 18:12 Dose: 10 mcg Enoxaparin Sodium (Lovenox) 40 mg SC DAILY [facility] PRN Reason: Protocol Last Admin: 04/19/18 10:06 Dose: 40 mg Meropenem (Merrem Iv 1 Gm Premix) 50 mls @ 100 mls/hr IVPB Q8 [facility] PRN Reason: Protocol Stop: 04/27/18 22:01 Last Admin: 04/20/18 06:15 Dose: 100 mls/hr Dextrose/Sodium Chloride (Dextrose 5%/0.45% Ns 1000 Ml) 1,000 mls @ 125 mls/hr IV .Q8H [facility] Last Admin: 04/19/18 13:13 Dose: 125 mls/hr Thiamine HCl 100 mg/ Sodium (Chloride) 51 mls @ 102 mls/hr IV DAILY [facility] Linezolid (Zyvox 600mg/300ml D5w) 600 mg in 300 mls @ 200 mls/hr IVPB Q12 [facility] PRN Reason: Protocol Stop: 04/28/18 22:01 Last Admin: 04/19/18 22:28 Dose: 200 mls/hr Multivitamins/Vitamin C (Multi-Delyn Liquid) 15 ml PEG 0800 [facility] - Labs Labs: 04/20/18 06:00 04/19/18 08:15 PT 16.0 SECONDS (9.4-12.5) H 04/18/18 11:50 INR 1.38 (0.93-1.08) H 04/18/18 11:50 APTT 32.4 Seconds (25.1-36.5) 04/18/18 11:50 Attending/Attestation - Attestation I have personally seen and examined this patient.: Yes I have fully participated in the care of the patient.: Yes I have reviewed all pertinent clinical information, including history, physical exam and plan: Yes Notes (Text): 04/20/18 07:40 Pt seen with resident at bedside.he has recurrent SVT.Agree with assessment and orders placed.
[2018-04-20] MEDS ORDERED: Amiodarone 450mg/9 ml vial IV ONE (06:00)
[2018-04-20] MEDS: Meropenem IV 1 gm in NS 50 ML IVPB SCH ×3 (06:15→21:06)
[2018-04-20 07:08] LABS: HEMOGLOBIN 10.8 g/dL (14.0-18.0); MEAN CORPUSCULAR HEMOGLOBIN 27.1 pg (25.0-35.0); MEAN CORPUSCULAR HGB CONC 30.4 g/dl (31.0-37.0); MEAN PLATELET VOLUME 10.9 fl (7.0-11.0); RBC 3.99 10^6/uL (3.5-6.1); RED CELL DISTRIBUTION WIDTH 18.3 % (11.5-14.5); WHITE BLOOD COUNT 9.8 10^3/ul (4.5-11.0)
[2018-04-20 08:00] LABS: ALB/GLOB RATIO 0.6 (1.1-1.8); ALBUMIN 2.1 g/dL (3.0-4.8); ALT/SGPT 146 U/L (7-56); AST/SGOT 69 U/L (17-59); BLOOD UREA NITROGEN 26 mg/dL (7-21); CALCIUM 8.2 mg/dL (8.4-10.5); GFR AFRICAN-AMERICAN > 60; GFR NON-AFRICAN AMERICAN > 60
--- NOTE | 2018-04-20 09:26 | CARD ---
APPROVED REPORT EKG Measurement Heart [id number] <Conclusion> Supraventricular tachycardia , new RBBB LAHB NSSTW changes
--- NOTE | 2018-04-20 09:29 | CARD ---
APPROVED REPORT EKG Measurement Heart [id number] <Conclusion> Normal sinus rhythm Low voltage QRS Right bundle branch block Left anterior fascicular block Bifascicular block
[2018-04-20] MEDS ORDERED: Ergocalciferol 50,000 Intl Units Cap PEG SCH (09:30)
--- NOTE | 2018-04-20 10:34 | CP.PCM.PN ---
Subjective - Date & Time of Evaluation Date of Evaluation: 04/20/18 Time of Evaluation: 10:32 - Subjective Subjective: Nephrology Consultation Note: Assessment: critical Hypernatremia with very low urine SG (dilute urine) favors Diabetes insipidus and likely superimposed limited fluid intake due to PEG tube dysfunction leading to dehydration and hypovolemia metabolic alkalosis with respi compensation SVT Anemia Abnormal LFT cellulitis around PEG tube hypertension, hyperlipidemia, CVA with residual deficit, aphasia, visual loss, non communicative, [facility] resident Plan maintain hemodynamics stable. Patient not on ACEI/ARB due to low BP. Monitor Input/Output, daily weights and electrolytes IVF as D5 0.45% saline @ 125 ml/hr started thiamine and MVI supplementation will start DDAVP NS 10 mcg bid PRBC as needed started iron and vit D supplements consider palliative care Check urine sodium and urine osmol Check for 25-OH vitamin D and anemia work up with TSAT/Ferritin, serum protein electrophoresis with immunofixation, B12 and folate level Dose meds/antibiotics for normal GFR. Glycemic control, aspiration/fall precautions Further work up/management as per primary team Thanks for allowing me to participate in care of your patient. Will follow patient with you. Please call if any Qs Dr Carter Juarez Office: [phone] Chief Complaint; Unable to obtain reason for consult: Hypernatremia HPI: Pt is a 87 M with hx of hypertension, hyperlipidemia, CVA with residual deficit, aphasia, visual loss, non communicative, [facility] resident, recent hospitalized for infection around PEG tube came with drainage around peg tube renal consult for hypernatremia pt unable to provide any hx ROS: unable to obtain. episodes of SVT. PEG tube leakage Physical Examination: General Appearance: Comfortable, in no acute respiratory distress, elderly male , contracted extremities, ill appearing, foul odor Vitals reviewed and noted as below Head; Atraumatic, normocephalic ENT: unable EYES: unable Neck; supple no lymphadenopathy, no thyromegaly or bruit Lungs: Normal respiratory rate/effort. Breath sounds bilateral equal and clear anteriorly except some rales Rt side Heart: Normal rate. s1s2 normal. No rub or gallop. Extremities: no edema. No varicose veins. both feets dressed, has wounds Neurological: Patient is non communicative unresponsive with contractures Skin: Warm and dry. Normal turgor. No rash. Palpitation: Normal elasticity for age Abdomen: limited due to his position and abdominal binder Psych: unable MSK: no joint tenderness or swelling. : unable Labs/imaging reviewed. Past medical history, past surgical history, family history, social history, allergy reviewed and noted as below Family hx: unable Work up: UA SG <1.005 Objective - Vital Signs/Intake and Output Vital Signs (last 24 hours): Temp Pulse Resp BP Pulse Ox 97.8 F 86 20 111/51 L 90 L 04/20/18 06:00 04/20/18 06:00 04/20/18 06:00 04/20/18 06:00 04/20/18 06:00 Intake and Output: 04/20/18 04/20/18 06:59 18:59 Intake Total 325 Balance 325 - Medications Medications: Current Medications Bacitracin (Bacitracin) 1 ea TOP DAILY [facility] Stop: 04/26/18 10:01 Desmopressin Acetate (Ddavp) 10 mcg NS BID [facility] Last Admin: 04/19/18 18:12 Dose: 10 mcg Enoxaparin Sodium (Lovenox) 40 mg SC DAILY [facility] PRN Reason: Protocol Last Admin: 04/19/18 10:06 Dose: 40 mg Ergocalciferol (Drisdol 50,000 Intl Units Cap) 1 cap PEG Q7D [facility] Ferrous Gluconate (Fergon) 324 mg PO TID [facility] Meropenem (Merrem Iv 1 Gm Premix) 50 mls @ 100 mls/hr IVPB Q8 [facility] PRN Reason: Protocol Stop: 04/27/18 22:01 Last Admin: 04/20/18 06:15 Dose: 100 mls/hr Dextrose/Sodium Chloride (Dextrose 5%/0.45% Ns 1000 Ml) 1,000 mls @ 125 mls/hr IV .Q8H [facility] Last Admin: 04/19/18 13:13 Dose: 125 mls/hr Thiamine HCl 100 mg/ Sodium (Chloride) 51 mls @ 102 mls/hr IV DAILY [facility] Linezolid (Zyvox 600mg/300ml D5w) 600 mg in 300 mls @ 200 mls/hr IVPB Q12 [facility] PRN Reason: Protocol Stop: 04/28/18 22:01 Last Admin: 04/19/18 22:28 Dose: 200 mls/hr Multivitamins/Vitamin C (Multi-Delyn Liquid) 15 ml PEG 0800 [facility] - Labs Labs: 04/20/18 06:00 04/20/18 06:00 PT 16.0 SECONDS (9.4-12.5) H 04/18/18 11:50 INR 1.38 (0.93-1.08) H 04/18/18 11:50 APTT 32.4 Seconds (25.1-36.5) 04/18/18 11:50
[2018-04-20] MEDS: Multi Vitamins 15 mL UD Oral Solution PEG SCH (10:44)
--- NOTE | 2018-04-20 11:09 | PN ---
DATE: 04/20/2018 SUBJECTIVE: The patient is in bed,in no acute distress, and was seen earlier this morning in 263, bed 2. The patient had an uneventful night. PHYSICAL EXAMINATION: VITAL SIGNS: On exam, temperature is down 97.8. Initially, the patient had a temperature of 100.7, blood pressure is 111/50, respiratory rate of 20, heart rate of 95, 90% oxygen saturation. HEENT: Examination of HEENT is unremarkable. NECK: Supple. LUNGS: Have decreased breath sounds. HEART: Normal S1, S2. ABDOMEN: Soft, nontender. No rebound or guarding. LABORATORY EXAMINATION: Reveals a white count of 9, hemoglobin is 10, platelets of 325, BUN of 32, creatinine of 0.7, AST is 115, ALT of 188. Urinalysis is noted. Serology is negative. Microbiology reveals the blood cultures are negative. Urine cultures are negative. ASSESSMENT AND PLAN: An 87-year-old male seen early this morning in 263. The patient with supraventricular tachycardia, was given adenosine by Dr. Cifuentes, 6 mg. The patient returned normal sinus rhythm. Admitted with fevers. The patient is admitted with severe sepsis with cellulitis around the PEG tube and with metabolic alkalosis and respiratory compensation, with history of cerebrovascular accident with aphasia, hypertension, anemia. Procalcitonin 0.32. Currently on day #3 of meropenem and linezolid. Awaiting for abdominal wound culture results. We will follow with you. Malachi Barr MD
[2018-04-20] MEDS: Enoxaparin 40 mg Syringe SC SCH (11:25)
[2018-04-20] MEDS: Thiamine 100 MG in Sodium Chloride 0.9% 50 ML IV SCH (11:25)
[2018-04-20] MEDS: Desmopressin Nasal 10 mcg/Spray (5 ml) NS SCH ×2 (11:27→18:41)
[2018-04-20] MEDS: Dextrose 5%/0.45% NS 1,000 ML IV SCH (11:29)
[2018-04-20] MEDS: Bacitracin 500 Units/gm Oint Foilpak UD TOP SCH (11:29)
[2018-04-20] MEDS: Linezolid 600 mg in D5W 300 ml 600 MG/300 ML BAG IVPB SCH ×2 (11:30→21:54)
[2018-04-20] MEDS ORDERED: Sodium Chloride 0.9% 250 ML IV SCH (12:15)
--- NOTE | 2018-04-20 14:52 | CARD ---
APPROVED REPORT EKG Measurement Heart [id number] <Conclusion> Supraventricular tachycardia , new RBBB LAHB NSSTW changes
--- NOTE | 2018-04-20 16:27 | PN ---
DATE: 04/20/2018 SUBJECTIVE: The patient was noted to have SVT overnight and periods of junctional bradycardia. He is currently in sinus rhythm. PHYSICAL EXAMINATION: VITAL SIGNS: Blood pressure 111/51, heart rate 86, temperature 97.8, respiration 20. HEENT: Pale conjunctivae. CHEST: Diminished breath sounds bilaterally. HEART: S1 and S2 regular and distant. EXTREMITIES: Very contracted extremities with cellulitis of the left foot and foul-smelling discharge soaking the dressing. LABORATORY DATA: Hemoglobin and hematocrit 10.8 and 35.5, white count and platelet count are within normal limits. SMA-7: Sodium 158, potassium 3.9, chloride 122, CO2 27, glucose 121, BUN 26, creatinine 0.7. AST and ALT are 69 and 146. Alkaline phosphatase 210. INR is 1.38. Hepatitis profile is negative. Gastrostomy tube port culture is positive for ESBL according to nursing staff. Echocardiogram study in September of last year revealed normal ejection fraction. Aortic valve leaflets are thickened and calcified. Mild restriction of excursion. ASSESSMENT: 1. Reentrant paroxysmal supraventricular tachycardia and periods of junctional bradycardia. 2. Consider underlying sepsis. 3. Infected gastrostomy wound. 4. Consider gangrenous right foot. RECOMMENDATIONS: The case was discussed with the primary physician, Dr. Mcleod and overall prognosis is grave and conservative medical approach is recommended including IV antibiotics including Zyvox and meropenem as well as prophylactic subcutaneous Lovenox. I did cosign do not resuscitate order given the overall clinical condition and very poor and grave outcome of the patient's current presentation. Jona Bhatia MD
--- NOTE | 2018-04-20 17:26 | PN ---
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 He is contracted in bed, having feeding tube problems with oozing ESBL from feeding tube site. He is also having lots of EKG changes and SVT, was given medications last night. He is in my opinion starting to fail. I filled out a form stating that he has grave prognosis with treatment and without treatment. He has a bad leg, was infected. I could use an AKA. He is nonverbal. He is bedridden. He is contracted. It is very sad state of affairs for him. Now it is hard starting to get involved. So, I filled out a form that he should be on hospice. Also to be a DNR/DNI and it was also signed by the rivet hammer machine operator, we both agree. We discussed it at length. PHYSICAL EXAMINATION: VITAL SIGNS: He has 97.8 temp, 86 pulse, 111/51 blood pressure, 20 respiratory rate, 98% O2 sat. HEENT: His head is atraumatic, normocephalic. HEART: Regular rate. LUNGS: Decreased breath sounds. ABDOMEN: He has got a feeding tube hole is oozing. EXTREMITIES: Contracted with ulcers in the feet. NEUROLOGIC: He is nonverbal. His eyes are open. That is the extent where he try some bacitracin, DDAVP, dextrose, Drisdol, Fergon, Lovenox, Merrem IV, multivitamin, thiamine, Zyvox IV. At this time, his blood pressure just dropped. So, we increased his IV fluids to 250 for 2 hours. He has a 9.8 white count, 10.8 hemoglobin after transfusing, 35.5 hematocrit with 325 platelets. He has a 158 sodium, little bit better, potassium, 27 carbon dioxide, BUN is 26, creatinine 0.7, GFR is greater than 60, sugar is 121, calcium is 8.2. Total bili is 0.4, AST is 69, ALT is 146, alkaline phosphatase 210. Total protein is 5.8. After discussing this with Cardiology, I feel that he should be a DNR/DNI and placed on hospice, back in [facility]. Hopefully, we get arrangements on Sunday, until then we will continue treatment as being DNR/DNI. Hopefully, he makes it for Sunday with aggressive treatment. Yuri Mcleod DO [facility] # [id number] KATHY
--- NOTE | 2018-04-20 18:28 | CP.PCM.PN ---
<Maida Benavides - Last Filed: 04/20/18 18:29> Subjective - Date & Time of Evaluation Date of Evaluation: 04/20/18 Time of Evaluation: 13:00 - Subjective Subjective: PGY 5 GI follow-up Pt seen and examined bedside contracted PEG displaced again no other overnight events pt accepted to hospice as per primary ROS: 12 point ROS could not be conducted Objective - Vital Signs/Intake and Output Vital Signs (last 24 hours): Temp Pulse Resp BP Pulse Ox 98.5 F 79 19 110/55 L 90 L 04/20/18 18:08 04/20/18 18:08 04/20/18 18:08 04/20/18 18:08 04/20/18 06:00 Intake and Output: 04/20/18 04/20/18 06:59 18:59 Intake Total 325 0 Balance 325 0 - Medications Medications: Current Medications Bacitracin (Bacitracin) 1 ea TOP DAILY ATA Stop: 04/26/18 10:01 Last Admin: 04/20/18 11:29 Dose: 1 ea Desmopressin Acetate (Ddavp) 10 mcg NS BID [facility] Last Admin: 04/20/18 11:27 Dose: 10 mcg Enoxaparin Sodium (Lovenox) 40 mg SC DAILY ATA PRN Reason: Protocol Last Admin: 04/20/18 11:25 Dose: 40 mg Ergocalciferol (Drisdol 50,000 Intl Units Cap) 1 cap PEG Q7D [facility] Last Admin: 04/20/18 10:44 Dose: Not Given Ferrous Gluconate (Fergon) 324 mg PO TID [facility] Last Admin: 04/20/18 17:33 Dose: Not Given Meropenem (Merrem Iv 1 Gm Premix) 50 mls @ 100 mls/hr IVPB Q8 ATA PRN Reason: Protocol Stop: 04/27/18 22:01 Last Admin: 04/20/18 15:27 Dose: 100 mls/hr Dextrose/Sodium Chloride (Dextrose 5%/0.45% Ns 1000 Ml) 1,000 mls @ 125 mls/hr IV .Q8H [facility] Last Admin: 04/20/18 11:29 Dose: 125 mls/hr Thiamine HCl 100 mg/ Sodium (Chloride) 51 mls @ 102 mls/hr IV DAILY [facility] Last Admin: 07/07/18 11:25 Dose: 102 mls/hr Linezolid (Zyvox 600mg/300ml D5w) 600 mg in 300 mls @ 200 mls/hr IVPB Q12 [facility] PRN Reason: Protocol Stop: 04/28/18 22:01 Last Admin: 04/20/18 11:30 Dose: 200 mls/hr Multivitamins/Vitamin C (Multi-Delyn Liquid) 15 ml PEG 0800 [facility] Last Admin: 04/20/18 10:44 Dose: Not Given - Labs Labs: 04/20/18 06:00 04/20/18 06:00 PT 16.0 SECONDS (9.4-12.5) H 04/18/18 11:50 INR 1.38 (0.93-1.08) H 04/18/18 11:50 APTT 32.4 Seconds (25.1-36.5) 04/18/18 11:50 - Constitutional Appears: Cachectic, Chronically Ill - Head Exam Head Exam: ATRAUMATIC, NORMOCEPHALIC - Eye Exam Eye Exam: Normal appearance - ENT Exam ENT Exam: Mucous Membranes Moist, Normal Exam - Neck Exam Neck Exam: Normal Inspection - Respiratory Exam Respiratory Exam: Clear to Ausculation Bilateral, NORMAL BREATHING PATTERN. absent: Rales, Rhonchi, Wheezes, Respiratory Distress - Cardiovascular Exam Cardiovascular Exam: REGULAR RHYTHM, +S1, +S2 - GI/Abdominal Exam GI & Abdominal Exam: Soft, Normal Bowel Sounds. absent: Guarding, Rigid, Tenderness, Organomegaly Additional comments: leaking of bowel content from peg insertion site - Extremities Exam Extremities Exam: absent: Joint Swelling, Pedal Edema - Neurological Exam Neurological Exam: Altered - Psychiatric Exam Additional comments: cannot assess - Skin Skin Exam: Dry, Intact, Normal Color, Warm Assessment and Plan - Assessment and Plan (Free Text) Assessment: Patient is an 87yo male with PMHx significant for prior CVA with multiple residual deficits, now aphasic at baseline, blindness who presented to the ED from [facility] with concern for PEG site infection. -PEG tube dislodgment -Concern for PEG site infection -Abnormal LFTs -Dehydration/Hypernatremia -Normocytic anemia -Dysphagia -H/O CVA with residual deficits Plan: -will not replace PEG at this time -place occlusive abd pads over site -pt for hospice -no additional interventions planned, as per PCP D/W Dr. Philippe <Humberto Philippe - Last Filed: 04/20/18 18:45> Objective - Vital Signs/Intake and Output Vital Signs (last 24 hours): Temp Pulse Resp BP Pulse Ox 98.5 F 79 19 110/55 L 90 L 04/20/18 18:08 04/20/18 18:08 04/20/18 18:08 04/20/18 18:08 04/20/18 06:00 Intake and Output: 04/20/18 04/20/18 06:59 18:59 Intake Total 325 0 Balance 325 0 - Medications Medications: Current Medications Bacitracin (Bacitracin) 1 ea TOP DAILY [facility] Stop: 04/26/18 10:01 Last Admin: 04/20/18 11:29 Dose: 1 ea Desmopressin Acetate (Ddavp) 10 mcg NS BID [facility] Last Admin: 04/20/18 18:41 Dose: 10 mcg Enoxaparin Sodium (Lovenox) 40 mg SC DAILY [facility] PRN Reason: Protocol Last Admin: 04/20/18 11:25 Dose: 40 mg Ergocalciferol (Drisdol 50,000 Intl Units Cap) 1 cap PEG Q7D [facility] Last Admin: 04/20/18 10:44 Dose: Not Given Ferrous Gluconate (Fergon) 324 mg PO TID [facility] Last Admin: 04/20/18 17:33 Dose: Not Given Meropenem (Merrem Iv 1 Gm Premix) 50 mls @ 100 mls/hr IVPB Q8 ATA PRN Reason: Protocol Stop: 04/27/18 22:01 Last Admin: 04/20/18 15:27 Dose: 100 mls/hr Dextrose/Sodium Chloride (Dextrose 5%/0.45% Ns 1000 Ml) 1,000 mls @ 125 mls/hr IV .Q8H [facility] Last Admin: 04/20/18 11:29 Dose: 125 mls/hr Thiamine HCl 100 mg/ Sodium (Chloride) 51 mls @ 102 mls/hr IV DAILY [facility] Last Admin: 04/20/18 11:25 Dose: 102 mls/hr Linezolid (Zyvox 600mg/300ml D5w) 600 mg in 300 mls @ 200 mls/hr IVPB Q12 [facility]A PRN Reason: Protocol Stop: 04/28/18 22:01 Last Admin: 04/20/18 11:30 Dose: 200 mls/hr Multivitamins/Vitamin C (Multi-Delyn Liquid) 15 ml PEG 0800 [facility] Last Admin: 04/20/18 10:44 Dose: Not Given - Labs Labs: 04/20/18 06:00 04/20/18 06:00 PT 16.0 SECONDS (9.4-12.5) H 04/18/18 11:50 INR 1.38 (0.93-1.08) H 04/18/18 11:50 APTT 32.4 Seconds (25.1-36.5) 04/18/18 11:50 Attending/Attestation - Attestation I have personally seen and examined this patient.: Yes I have fully participated in the care of the patient.: Yes I have reviewed all pertinent clinical information, including history, physical exam and plan: Yes Notes (Text): 04/20/18 18:42 This is an 87 year old male with PMHx significant for prior CVA with multiple residual deficits, now aphasic at baseline, blindness who presented to the ED from [facility] [facility] with concern for PEG site infection. PEG was placed bedside but it got dislodged today again. It was removed and on discussion with PMD patient has been accepted to the hospice and hence no more invasive interventions will be done. Rest of plan as per PMD and primary team. Thank you for letting us participate in the care of your patient
[2018-04-21] MEDS: Dextrose 5%/0.45% NS 1,000 ML IV SCH ×4 (02:54→18:06)
[2018-04-21] MEDS: Meropenem IV 1 gm in NS 50 ML IVPB SCH ×2 (05:30→14:30)
[2018-04-21 08:15] LABS: HEMOGLOBIN 10.3 g/dL (14.0-18.0); MEAN CELL VOLUME 88.9 fl (80.0-105.0); MEAN CORPUSCULAR HEMOGLOBIN 27.2 pg (25.0-35.0); MEAN CORPUSCULAR HGB CONC 30.6 g/dl (31.0-37.0); MEAN PLATELET VOLUME 10.6 fl (7.0-11.0); RBC 3.79 10^6/uL (3.5-6.1); RED CELL DISTRIBUTION WIDTH 18.5 % (11.5-14.5); WHITE BLOOD COUNT 9.1 10^3/ul (4.5-11.0)
[2018-04-21] MEDS: Multi Vitamins 15 mL UD Oral Solution PEG SCH (08:25)
[2018-04-21 08:38] LABS: ALB/GLOB RATIO 0.6 (1.1-1.8); ALBUMIN 2.5 g/dL (3.0-4.8); ALT/SGPT 106 U/L (7-56); AST/SGOT 41 U/L (17-59); BLOOD UREA NITROGEN 19 mg/dL (7-21); CALCIUM 7.6 mg/dL (8.4-10.5); GFR AFRICAN-AMERICAN > 60; GFR NON-AFRICAN AMERICAN > 60
[2018-04-21] MEDS: Enoxaparin 40 mg Syringe SC SCH (09:53)
[2018-04-21] MEDS: Thiamine 100 MG in Sodium Chloride 0.9% 50 ML IV SCH (09:53)
[2018-04-21] MEDS: Bacitracin 500 Units/gm Oint Foilpak UD TOP SCH (09:54)
[2018-04-21] MEDS: Linezolid 600 mg in D5W 300 ml 600 MG/300 ML BAG IVPB SCH (09:54)
[2018-04-21] MEDS: Desmopressin Nasal 10 mcg/Spray (5 ml) NS SCH ×2 (10:15→18:03)
--- NOTE | 2018-04-21 11:48 | CP.PCM.PN ---
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 Patient not on ACEI/ARB due to low BP. Monitor Input/Output, daily weights and electrolytes IVF as D5 0.45% saline @ 75 ml/hr while in hospital started thiamine and MVI supplementation started DDAVP NS 10 mcg bid for diabetes insipidus PRBC as needed started iron and vit D supplements agree with palliative care. pt planned for hospice Dose meds/antibiotics for normal GFR. Glycemic control, aspiration/fall precautions Further work up/management as per primary team Thanks for allowing me to participate in care of your patient. Will sign off. 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 episodes of SVT. PEG tube leakage Physical Examination: General Appearance: Comfortable, in no acute respiratory distress, elderly male , contracted extremities, ill appearing, foul odor Vitals reviewed and noted as below Head; Atraumatic, normocephalic ENT: unable EYES: unable Neck; supple no lymphadenopathy, no thyromegaly or bruit Lungs: Normal respiratory rate/effort. Breath sounds bilateral equal and clear anteriorly except some rales Rt side Heart: Normal rate. s1s2 normal. No rub or gallop. Extremities: no edema. No varicose veins. both feets dressed, has wounds Neurological: Patient is non communicative unresponsive with contractures Skin: Warm and dry. Normal turgor. No rash. Palpitation: Normal elasticity for age Abdomen: limited due to his position and abdominal binder Psych: unable MSK: no joint tenderness or swelling. : unable Labs/imaging reviewed. Past medical history, past surgical history, family history, social history, allergy reviewed and noted as below Family hx: unable Work up: UA SG <1.005 Objective - Vital Signs/Intake and Output Vital Signs (last 24 hours): Temp Pulse Resp BP Pulse Ox 97.9 F 85 19 94/67 L 96 04/21/18 06:00 04/21/18 06:00 04/21/18 06:00 04/21/18 06:00 04/21/18 06:00 Intake and Output: 04/21/18 04/21/18 06:59 18:59 Intake Total 2140 Balance 2140 - Medications Medications: Current Medications Bacitracin (Bacitracin) 1 ea TOP DAILY [facility] Stop: 04/26/18 10:01 Last Admin: 04/21/18 09:54 Dose: 1 ea Desmopressin Acetate (Ddavp) 10 mcg NS BID [facility] Last Admin: 04/21/18 10:15 Dose: 10 mcg Enoxaparin Sodium (Lovenox) 40 mg SC DAILY [facility] PRN Reason: Protocol Last Admin: 04/21/18 09:53 Dose: 40 mg Ergocalciferol (Drisdol 50,000 Intl Units Cap) 1 cap PEG Q7D [facility] Last Admin: 04/20/18 10:44 Dose: Not Given Ferrous Gluconate (Fergon) 324 mg PO TID [facility] Last Admin: 04/21/18 09:54 Dose: Not Given Fluconazole (Diflucan) 100 mg PO DAILY [facility] PRN Reason: Protocol Stop: 04/30/18 10:01 Last Admin: 04/21/18 10:01 Dose: Not Given Meropenem (Merrem Iv 1 Gm Premix) 50 mls @ 100 mls/hr IVPB Q8 [facility] PRN Reason: Protocol Stop: 04/27/18 22:01 Last Admin: 04/21/18 05:30 Dose: 100 mls/hr Thiamine HCl 100 mg/ Sodium (Chloride) 51 mls @ 102 mls/hr IV DAILY [facility] Last Admin: 04/21/18 09:53 Dose: 102 mls/hr Linezolid (Zyvox 600mg/300ml D5w) 600 mg in 300 mls @ 200 mls/hr IVPB Q12 [facility] PRN Reason: Protocol Stop: 04/28/18 22:01 Last Admin: 04/21/18 09:54 Dose: 200 mls/hr Dextrose/Sodium Chloride (Dextrose 5%/0.45% Ns 1000 Ml) 1,000 mls @ 75 mls/hr IV [id number] [facility] Last Admin: 04/21/18 10:06 Dose: 75 mls/hr Insulin Human Regular (Humulin R Med) 0 units SC ACHS [facility] PRN Reason: Protocol Multivitamins/Vitamin C (Multi-Delyn Liquid) 15 ml PEG 0800 [facility] Last Admin: 04/21/18 08:25 Dose: Not Given - Labs Labs: 04/21/18 08:00 04/21/18 08:00 PT 16.0 SECONDS (9.4-12.5) H 04/18/18 11:50 INR 1.38 (0.93-1.08) H 04/18/18 11:50 APTT 32.4 Seconds (25.1-36.5) 04/18/18 11:50
--- NOTE | 2018-04-21 12:08 | PN ---
DATE: 04/21/2018 SUBJECTIVE: The patient is in bed, in no acute distress, was seen early this morning in 263, bed 2. PHYSICAL EXAMINATION: VITAL SIGNS: On exam, temperature is 98, blood pressure is 94/60, respiratory rate of 18. HEENT: Examination of HEENT is unremarkable. NECK: Supple. LUNGS: Have decreased breath sounds. HEART: Normal S1, S2. ABDOMEN: Soft, nontender. No rebound or guarding. No masses. LABORATORY DATA: Laboratory examination reveals a white count of 9.1, hemoglobin of 10, platelets of 283. Chemistries reveals a BUN of 19, creatinine of 0.6, procalcitonin 0.32. Urinalysis is noted. Immunology is noted. Serology is negative. Microbiology reveals there is Proteus mirabilis and yeast from the abdominal wound. The Proteus mirabilis is light growth and is sensitive to amikacin, ertapenem, meropenem and piperacillin and tazobactam. ASSESSMENT AND PLAN: An 87-year-old male who was seen early this morning in [facility], bed 2, who was admitted with fevers and #1 is severe sepsis with cellulitis at the percutaneous endoscopic gastrostomy tube site, which was removed associated with metabolic alkalosis with respiratory compensation in a patient who is growing Proteus mirabilis and yeast from the wound culture and currently on meropenem and Zyvox day #4. We will add Diflucan because of the local yeast. Percutaneous endoscopic gastrostomy tube has been removed in a patient who has history of cerebrovascular accident with aphasia, hypertension, anemia, chronic bedridden. Day #4 of meropenem and linezolid and day #1 of Diflucan. Overall prognosis is quite poor for this patient. Should consider supportive care and conservative management only. Malachi Barr MD
[2018-04-21] MEDS: Insulin Reg-MEDIUM-Coverage SC SCH ×3 (12:52→23:58)
--- NOTE | 2018-04-21 13:04 | PN ---
DATE: 04/21/2018 SUBJECTIVE: I saw him in the hospital bed at [facility]. His eyes are open. He is nonverbal. He is on multiple doses of adenosine for very elevated pulse, which is in the 140s to 150s. We will see what Cardiology has to say. MEDICATIONS: He is on bacitracin, DDAVP, dextrose, Drisdol, Fergon, Lopressor, Lovenox, Merrem, multivitamin, amiodarone, vitamin B1 and Zyvox. PHYSICAL EXAMINATION: VITAL SIGNS: He has a 97.9 temp, 85 pulse, 94/67 blood pressure, 19 respiratory rate, 96% O2 saturation on nasal cannula 2 liters. His pulse has been as high as 140, right now it is 85. HEENT: His head is atraumatic, normocephalic. His eyes are open, that is his baseline. HEART: Regular rate. Right now, it is regular and in the 80s. LUNGS: Decreased breath sounds. ABDOMEN: He does have an oozing from the PEG tube site and is contracted with ulcers and bad blood circulations in his legs. LABORATORY DATA: He has a 168 sodium, that was yesterday. This morning's labs are not back. BUN 26, creatinine 0.7, sugar is 121, AST is 69, ALT is 146, alkaline phosphatase 210. Today's white count is 9.1, hemoglobin 10.3, hematocrit 33.7, platelets of 282. ASSESSMENT AND PLAN: He is being seen by Infectious Disease, Renal and GI. I consulted hospice for evaluation. I made him a DNR/DNI, I saw the paperwork, so was the second doctor, signed the paperwork agreeing for poor prognosis and hopefully, we could get him back to [facility] in the next few days on hospice. Yuri Mcleod DO MTDD
--- NOTE | 2018-04-21 13:13 | PN ---
DATE: 04/21/2018 PULMONARY PROGRESS NOTE SUBJECTIVE: Patient was seen and examined at bedside. He is receiving double antibiotic therapy with meropenem and linezolid. States he is on nasal cannula and not in respiratory distress. PHYSICAL EXAMINATION: VITAL SIGNS: His temperature is 97.9, pulse 85, respirations 20, pulse oximetry is 96% on nasal cannula, blood pressure 94/67. HEAD, EARS, NOSE AND THROAT: Normocephalic and atraumatic. NECK: Supple with no jugular vein distention. CARDIOVASCULAR: S1, S2. No S3. Regular. PULMONARY: Diminished breath sounds at both lung bases. There are no rhonchi, rales or wheezing. GASTROINTESTINAL: Soft, nontender. No organomegaly. EXTREMITIES: 1+ pedal edema. No cyanosis. SKIN: No acute skin rash. NEUROLOGIC: Limited at present time. LABORATORY DATA: Additional data reviewed. His WBC is 9.1, hemoglobin of 10.3. Sodium 148, potassium 3.3 and blood sugar is elevated. ASSESSMENT: 1. Sepsis syndrome. 2. Left lower lobe pneumonia. 3. Infected percutaneous endoscopic gastrostomy site. 4. Improving electrolyte abnormalities, resolving hypernatremia. PLAN: Patient seems to be stable from a respiratory standpoint. His last chest x-ray was reviewed by me today. The indication was possible infiltrate in the lower lobe; however, the study cannot be pulled up as we speak. I will review it later if the computer problem will be resolved. I would keep him on current antibiotics. He is not bronchospastic, does not need respiratory treatments. Kodi Garsia MD
[2018-04-21] MEDS ORDERED: Dextrose 50% SYRINGE Inj (50 ml) IVP ONE ×2 (16:18→21:52)
--- NOTE | 2018-04-21 20:00 | PN ---
DATE: 04/21/2018 SUBJECTIVE: Patient did have a CT earlier and received IV adenosine twice. He is currently in sinus rhythm. He is still n.p.o., on IV fluid. He is not verbally communicating at all. PHYSICAL EXAMINATION: VITAL SIGNS: Blood pressure 146/76, heart rate 90, temperature 98.7, respirations 18. HEENT: Pale conjunctivae. CHEST: Absent breath sounds over the bases. HEART: S1 and S2 regular. EXTREMITIES: Severe contraction deformity with significant purulent discharge coming from the right foot. LABORATORY DATA: Hemoglobin and hematocrit 10.3 and 33.7. White count and platelet count are within normal limit. SMA-7: Sodium 148, potassium 3.3, chloride 117, CO2 25, glucose 395, BUN 19, creatinine 0.6, calcium is 7.6. ASSESSMENT: 1. Paroxysmal reentrant supraventricular tachycardia. 2. Sepsis. 3. Infected gastrostomy wound. 4. Gangrenous right foot. 5. Hypokalemia. RECOMMENDATIONS: Continue current IV fluids with D5 half normal saline at 75 mL an hour. Continue subcutaneous Lovenox 40 mg once a day. IV meropenem at 1 mg every 8 hours, IV Zyvox 600 mg intravenously every 12 hours. The patient did receive intravenous potassium chloride replacement and discontinue telemetry. The plan is to transfer the patient to hospice. Jona Bhatia MD
[2018-04-21] MEDS ORDERED: Silver Nitrate Topical - Stick TOP ONE (22:19)
[2018-04-21] MEDS ORDERED: Absorbable Gelatin Sponge Size 12-7 MM STA (22:23)
[2018-04-21] MEDS ORDERED: Magnesium Hydroxide Susp 30 ml UD PEG ONE (23:04)
[2018-04-22] MEDS: Linezolid 600 mg in D5W 300 ml 600 MG/300 ML BAG IVPB SCH ×3 (00:04→21:20)
[2018-04-22] MEDS: Meropenem IV 1 gm in NS 50 ML IVPB SCH ×4 (00:08→21:19)
[2018-04-22] MEDS: Dextrose 5%/0.45% NS 1,000 ML IV SCH (05:47)
[2018-04-22 06:20] LABS: HEMOGLOBIN 10.2 g/dL (14.0-18.0); MEAN CELL VOLUME 88.9 fl (80.0-105.0); MEAN CORPUSCULAR HEMOGLOBIN 26.8 pg (25.0-35.0); MEAN CORPUSCULAR HGB CONC 30.2 g/dl (31.0-37.0); MEAN PLATELET VOLUME 10.2 fl (7.0-11.0); RBC 3.8 10^6/uL (3.5-6.1); WHITE BLOOD COUNT 8.7 10^3/ul (4.5-11.0)
[2018-04-22 07:02] LABS: ALB/GLOB RATIO 0.6 (1.1-1.8); ALBUMIN 2.3 g/dL (3.0-4.8); ALT/SGPT 87 U/L (7-56); AST/SGOT 46 U/L (17-59); BLOOD UREA NITROGEN 20 mg/dL (7-21); GFR AFRICAN-AMERICAN > 60; GFR NON-AFRICAN AMERICAN > 60
--- NOTE | 2018-04-22 08:16 | CON ---
DATE: 04/19/2018 LOCATION: Patient is seen earlier today in 262, bed 2. CHIEF COMPLAINT: PEG tube drainage times several days. HISTORY OF PRESENT ILLNESS: This is an 87-year-old [facility] male, who is seen earlier this morning with questionable scleroderma, cardiac arrhythmia, syncope, patient is a poor historian, has a cerebrovascular accident, hemiplegic, blindness, aphasia, hypertension and gastritis, history of prostate surgery, who is admitted with soft tissue infection. Infectious Disease consultation requested. Patient has had fevers, and patient is unable to give any history. No abdominal pain, diarrhea or constipation. No shortness of breath or cough. No headaches. PAST MEDICAL HISTORY: Significant for scleroderma, cardiac arrhythmia, syncope, gastritis, duodenitis, cerebrovascular accident, hemiplegia, blindness, aphasia, hypertension. PAST SURGICAL HISTORY: Significant for prostate surgery. ALLERGIES: PATIENT HAS NO KNOWN ALLERGIES. MEDICATIONS: At [facility], include rosuvastatin 20 mg, pantoprazole, omeprazole, metoprolol, aspirin, Eliquis. PHYSICAL EXAMINATION: VITAL SIGNS: Temperature is 98, T-max is 100.7, pulse of 92, blood pressure is 112/70, respiratory rate of 20. HEENT: Unremarkable. NECK: Supple. LUNGS: Decreased breath sounds. HEART: Normal S1 and S2. ABDOMEN: Soft, not tender. The PEG tube is removed; however, there is discharge and erythema and evidence of infection at the PEG tube site. LABORATORY DATA: Reveals a white count of 12,800, hemoglobin of 9, platelets of 381, 80% granulocytosis. Coagulation is noted. Chemistries revealed the BUN is 41, creatinine of 0.7, AST is 376, ALT of 327, alkaline phosphatase is 270. Procalcitonin 0.32. Urinalysis is negative. Immunology is negative. Serology is negative. Microbiology reveals the blood cultures are negative, urine cultures are negative. wound cultures are pending. ASSESSMENT AND PLAN: This is an 87-year-old [facility] male with extensive medical history, admitted now with sepsis, with a percutaneous endoscopic gastrostomy site cellulitis and a left healthcare-associated pneumonia with a positive chest x-ray with a left-sided infiltrate and leukocytosis; however, normal procalcitonin which speaks against the bacterial pneumonia, in a patient with scleroderma, cardiac arrhythmia, syncope, gastritis, duodenitis, cerebrovascular accident, hemiplegia, blindness, aphasia, hypertension, and sepsis secondary to left healthcare-associated pneumonia and percutaneous endoscopic gastrostomy site cellulitis. We will treat the patient with Zyvox and meropenem. I have started the patient on Zyvox and pharmacy had discontinued it. We will restart the Zyvox again, pending grissom culture results. We will follow closely with you. Malachi Barr MD
--- NOTE | 2018-04-22 08:33 | PN ---
DATE: 04/22/2018 SUBJECTIVE: He apparently had a rough night last night. He had some GI bleeding from the feeding tube site. He has an infection. He is contracted. He is bedridden. His eyes are open, but he is nonverbal. He had fevers. He had sepsis. He has a gastrotomy tube placement issue. He is growing Proteus mirabilis and yeast from the wound culture. He is on Merrem, Zyvox and Diflucan. History of CVA, I made him a DNR/DNI. I am hoping Loyda Lowe to come in and help us maybe make him a hospice case at [facility]. He is on bacitracin, DDAVP, dextrose, Diflucan, Drisdol, Fergon, insulin, Lovenox, Merrem, multivitamin, thiamine and Zyvox. OBJECTIVE: VITAL SIGNS: He has a 97.8 temperature, 90 pulse, 96/59 blood pressure, 20 respiratory rate, 94% O2 sat on nasal cannula. HEENT: His head is atraumatic, normocephalic. HEART: Regular rate. LUNGS: Decreased breath sounds, but clear. ABDOMEN: Soft. EXTREMITIES: No edema, but he is contracted with ulcers, PEG tube site bleeding and oozing from it, which is an infection. DATA: He has an 8.7 white count, 10.2 hemoglobin, 33.8 hematocrit with 269 platelets. Sodium 152; potassium is 3, I will replace the potassium. BUN is 20, creatinine 0.8. GFR is greater than 60. Sugar is 93,calcium is 8, total bili is 0.5, AST is 46, ALT is 87, alkaline phosphatase 181, total protein is 2.3. We will continue with the aggressive treatment and care and antibiotics. If we can get the G tube site stop oozing, stop bleeding and a feeding tube in place, possibly back at [facility] this week hospice or back to his baseline. I will replace potassium. Yuri Mcleod DO [facility]
[2018-04-22] MEDS: Insulin Reg-MEDIUM-Coverage SC SCH ×4 (08:43→22:30)
--- NOTE | 2018-04-22 08:53 | PN ---
DATE: 04/20/2018 PULMONARY PROGRESS NOTE SUBJECTIVE: The patient was seen and examined at the bedside. He is currently receiving intravenous antibiotics with linezolid and meropenem. He does not appear to be in respiratory distress. PHYSICAL EXAMINATION: VITAL SIGNS: His temperature is 97.8, pulse 86, respirations 20, pulse oximetry is 90 on nasal cannula, blood pressure 111/51. HEENT: Examination of head, ear, nose and throat is within normal limits. NECK: Supple with no jugular vein distention. CARDIOVASCULAR: S1, S2. No S3. Regular. PULMONARY: Diminished breath sounds at both bases with a few scattered rhonchi, no wheezing. GI: Soft, nontender. No organomegaly. PEG tube present. EXTREMITIES: No pedal edema. SKIN: No acute skin rash. NEUROLOGIC: Limited at the present time. LABORATORY DATA: I reviewed today's lab results. His serum sodium is 158 and elevated, chloride is elevated to 122, potassium is 3.9, WBC 9.8, hemoglobin of 10.8. ASSESSMENT: 1. Sepsis syndrome. 2. Left lower lobe pneumonia. 3. Infected percutaneous endoscopic gastrostomy tube. 4. Anemia. 5. Severe hypernatremia. PLAN: The patient is transferred from half-way with PEG tube infection; however, he was found to have also lower lobe pneumonia. He is currently on good antibiotic coverage as per Dr. Barr. We will continue with administration of supplemental oxygen; currently, he is not bronchospastic so the nebulizer treatment is being held. We will follow closely. Kodi Garsia MD
[2018-04-22] MEDS: Multi Vitamins 15 mL UD Oral Solution PEG SCH (09:04)
--- NOTE | 2018-04-22 09:33 | PN ---
DATE: 04/22/2018 PULMONARY PROGRESS NOTE SUBJECTIVE The patient remains comfortable appearing. He is not overly responsive. He is resting comfortably. Respiratory status seems stable. PHYSICAL EXAMINATION: VITAL SIGNS: On physical exam, he is afebrile. Respiratory rate is 18, pulse ox 96% on supplemental oxygen. Blood pressure 100/70. HEENT: Normocephalic, atraumatic. NECK: Supple. No JVD. CARDIOVASCULAR: Regular rhythm. S1, S2 without murmur. CHEST: Global decrease in breath sounds. No rales, rhonchi or wheezes appreciated. ABDOMEN: Soft. Bowel sounds normoactive without mass, guarding, rebound or organomegaly. EXTREMITIES: Reveal trace edema. No cyanosis or clubbing. SKIN: Warm. No rash or excoriation. NEUROLOGIC: Focal findings not identified. ASSESSMENT: 1. Status post sepsis syndrome. 2. Left lower lobe infiltrate. 3. Percutaneous endoscopic gastrointestinal infection. PLAN: Repeat x-ray today to look for changes in the pulmonary infiltrate. Close followup is essential. We will follow closely with you. Continue antibiotics. We will decide on the need for further intervention based on x-ray findings. Hector Negron MD
[2018-04-22] MEDS ORDERED: Digoxin 500 mcg/2ml (0.5 mg/2ml) Inj IVP STA (10:00)
[2018-04-22] MEDS ORDERED: Collagen Hemostat Powder MM ONE (10:11)
[2018-04-22] MEDS: Desmopressin Nasal 10 mcg/Spray (5 ml) NS SCH ×2 (10:30→19:33)
[2018-04-22] MEDS ORDERED: Dextrose 5%/0.45% NS 1,000 ML IV SCH (10:40)
--- NOTE | 2018-04-22 10:41 | RAD ---
PROCEDURE: CHEST RADIOGRAPH, 1 VIEW HISTORY: shortness of breath COMPARISON: None available. FINDINGS: Limited study at due to patient rotation to the right. LUNGS: Poor inspiration with low lung volumes. Mild left basilar atelectasis and or scarring slightly improved. There also appears to be some very minor right basilar atelectasis. . Questionable small right-sided effusion PLEURA: As above. No apparent pneumothorax CARDIOVASCULAR: Heart appears enlarged and difficult to assess due to patient rotation and low lung volumes. . OSSEOUS STRUCTURES: Bilateral high-riding humeral heads right greater than left consistent prior rotator cuff injury VISUALIZED UPPER ABDOMEN: Normal. OTHER FINDINGS: None. IMPRESSION: Poor inspiration with low lung volumes. Mild left basilar atelectasis and or scarring slightly improved. There also appears to be some very minor right basilar atelectasis. . Questionable small right-sided effusion
--- NOTE | 2018-04-22 10:46 | PN ---
DATE: 04/22/2018 SUBJECTIVE: The patient is status post SVT this weekend. Currently, the patient is , cannot communicate. PHYSICAL EXAMINATION: VITAL SIGNS: Blood pressure is 96/50, heart rate is in the 90s. NECK: Negative JVD. LUNGS: Without rales. HEART: Reveal S1, S2. EXTREMITIES: Without edema. DATA: The potassium is 3. Sodium is 152, hemoglobin is 10.2. IMPRESSION: 1. Status post supraventricular ventricular tachycardia. 2. History of cerebrovascular accident in the past. 3. Hypokalemia. Given these findings, the patient's prognosis is grave. Conservative therapy would be appropriate. The patient will be going back to hospice care. Currently, we will add digoxin to his regimen to prevent future SVT episodes. Joe Garcia MD
[2018-04-22] MEDS ORDERED: Digoxin 500 mcg/2ml (0.5 mg/2ml) Inj IVP ONE (11:18)
[2018-04-22] MEDS: Bacitracin 500 Units/gm Oint Foilpak UD TOP SCH (11:20)
--- NOTE | 2018-04-22 11:33 | CP.PCM.CON ---
History of Present Illness - History of Present Illness History of Present Illness: 87NM with CVA/Sepsis(PEG Site)/GI Blee3 PEG Complicationsding(also PEF) /Dyslodged PEG/Aphasia/Blind/TotallyUnresponsive /Prostate CA Consulted for Past Patient History - Infectious Disease Hx of Infectious Diseases: None - Tetanus Immunizations Tetanus Immunization: Unknown - Past Social History Smoking Status: Unknown If Ever Smoked - CARDIAC Hx Cardiac Disorders: Yes Hx Cardia Arrhythmia: Yes Hx Hypertension: Yes Hx Peripheral Edema: Yes (ble +1) - PULMONARY Hx Respiratory Disorders: No - NEUROLOGICAL Hx Neurological Disorder: Yes (ams) HX Cerebrovascular Accident: Yes (hemiplegia, aphasia) Other/Comment: syncopal episode 22 yrs ago, no verbal response - HEENT Hx HEENT Problems: Yes 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", right ear hearing loss - RENAL Hx Chronic Kidney Disease: No - ENDOCRINE/METABOLIC Hx Endocrine Disorders: No - HEMATOLOGICAL/ONCOLOGICAL Hx Blood Disorders: No Hx Cancer: (denies prostate ca) - INTEGUMENTARY Hx Dermatological Problems: Yes Other/Comment: bleeding from g tube site surrounded by excoriated skin, dark brown drainage,dark dry red scab r fa near wrist, multiple red brown open wounds left foot, multiple open wound and large necrotic wound to right foot, sacrum open wound, knees red dry skin, see skin assesment of admission assesment for mor details - MUSCULOSKELETAL/RHEUMATOLOGICAL Hx Falls: No - GASTROINTESTINAL Hx Gastrointestinal Disorders: Yes Other/Comment: esophagitis, gastritis, gas, uses stool softeners - GENITOURINARY/GYNECOLOGICAL Hx Genitourinary Disorders: Yes Hx Prostate Problems: Yes (denies ca, had prostate sx 2 months ago) Hx Urinary Tract Infection: Yes Other/Comment: dribbling since prostate sx when coughing or laughing - PSYCHIATRIC Hx Substance Use: No - SURGICAL HISTORY Hx Surgeries: Yes Other/Comment: left hip replacement 2000 - ANESTHESIA Hx Anesthesia: Yes Hx Anesthesia Reactions: No Hx Malignant Hyperthermia: No Meds Allergies/Adverse Reactions: Allergies Allergy/AdvReac Type Severity Reaction Status Date / Time No Known Allergies Allergy Verified 10/08/17 01:41 - Medications Medications: Current Medications Bacitracin (Bacitracin) 1 ea TOP DAILY [facility] Stop: 04/26/18 10:01 Last Admin: 04/22/18 11:20 Dose: 1 ea Desmopressin Acetate (Ddavp) 10 mcg NS BID [facility] Last Admin: 04/22/18 10:30 Dose: 10 mcg Digoxin (Lanoxin) 0.125 mg IVP ONCE ONE Stop: 04/23/18 10:23 Enoxaparin Sodium (Lovenox) 40 mg SC DAILY [facility] PRN Reason: Protocol Last Admin: 04/21/18 09:53 Dose: 40 mg Ergocalciferol (Drisdol 50,000 Intl Units Cap) 1 cap PEG Q7D [facility] Last Admin: 04/20/18 10:44 Dose: Not Given Ferrous Gluconate (Fergon) 324 mg PO TID [facility] Last Admin: 04/22/18 09:05 Dose: Not Given Fluconazole (Diflucan) 100 mg PO DAILY [facility] PRN Reason: Protocol Stop: 04/30/18 10:01 Last Admin: 04/22/18 09:54 Dose: Not Given Meropenem (Merrem Iv 1 Gm Premix) 50 mls @ 100 mls/hr IVPB Q8 [facility] PRN Reason: Protocol Stop: 04/27/18 22:01 Last Admin: 04/22/18 05:39 Dose: 100 mls/hr Thiamine HCl 100 mg/ Sodium (Chloride) 51 mls @ 102 mls/hr IV DAILY [facility] Last Admin: 04/21/18 09:53 Dose: 102 mls/hr Linezolid (Zyvox 600mg/300ml D5w) 600 mg in 300 mls @ 200 mls/hr IVPB Q12 [facility] PRN Reason: Protocol Stop: 04/28/18 22:01 Last Admin: 04/22/18 00:04 Dose: 200 mls/hr Potassium Chloride (Potassium Chloride 10 Meq/100 Ml) 10 meq in 100 mls @ 50 mls/hr IVPB Q2H [facility] Stop: 04/22/18 12:14 Last Admin: 04/22/18 11:18 Dose: 50 mls/hr Dextrose/Sodium Chloride (Dextrose 5%/0.45% Ns 1000 Ml) 1,000 mls @ 100 mls/hr IV .Q10H [facility] Insulin Human Regular (Humulin R Med) 0 units SC ACHS [facility] PRN Reason: Protocol Last Admin: 04/22/18 08:43 Dose: Not Given Multivitamins/Vitamin C (Multi-Delyn Liquid) 15 ml PEG 0800 AT[facility] Last Admin: 04/22/18 09:04 Dose: Not Given Results - Vital Signs Recent Vital Signs: Last Vital Signs Temp 97.8 F 04/22/18 06:00 Pulse 90 04/22/18 06:00 Resp 20 04/22/18 06:00 BP 96/59 L 04/22/18 06:00 Pulse Ox 94 L 04/22/18 06:00 - Labs Result Diagrams: 04/22/18 05:30 04/22/18 05:30 Labs: Laboratory Results - last 24 hr 04/21/18 04/21/18 04/21/18 11:26 21:21 23:29 WBC RBC Hgb Hct MCV MCH MCHC RDW Plt Count MPV Sodium Potassium Chloride Carbon Dioxide Anion Gap BUN Creatinine Est GFR ( Amer) Est GFR (Non-Af Amer) POC Glucose (mg/dL) 100 64 L 87 Random Glucose Calcium Total Bilirubin AST ALT Alkaline Phosphatase Total Protein Albumin Globulin Albumin/Globulin Ratio 04/22/18 04/22/18 05:30 05:30 WBC 8.7 RBC 3.80 Hgb 10.2 L Hct 33.8 L MCV 88.9 MCH 26.8 MCHC 30.2 L RDW 18.0 H Plt Count 269 MPV 10.2 Sodium 152 H Potassium 3.0 L Chloride 115 H Carbon Dioxide 31 Anion Gap 9 L BUN 20 Creatinine 0.8 Est GFR ( Amer) > 60 Est GFR (Non-Af Amer) > 60 POC Glucose (mg/dL) Random Glucose 93 Calcium 8.0 L Total Bilirubin 0.5 AST 46 ALT 87 H Alkaline Phosphatase 181 H Total Protein 6.1 Albumin 2.3 L Globulin 3.9 Albumin/Globulin Ratio 0.6 L Assessment & Plan - Assessment and Plan (Free Text) Assessment: PEG Removed/Bleeding controlled(topical [id number]) Holden c/s site No further recommendations at this time Jodi Donato MD FACS
[2018-04-22] MEDS ORDERED: Magnesium Hydroxide Susp 30 ml UD PEG ONE (11:41)
--- NOTE | 2018-04-22 11:49 | CARD ---
APPROVED REPORT EKG Measurement Heart [id number] <Conclusion> Probably sinus tachycardia vs SVT, new RBBB LAHB
--- NOTE | 2018-04-22 13:31 | CP.PCM.CON ---
<María Elena Noel - Last Filed: 04/22/18 17:19> History of Present Illness - History of Present Illness History of Present Illness: General Surgery Consult note for Dr. 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 PEG tube was placed Sep 2017 and resituated February 2018 for dislodgement. Tube had dislodged in ED and had been removed prior to examining the patient. PEG tube site was excoriated and actively bleeding upon seeing the patient. It was determined that a small vessel in the skin surrounding the site was the primary cause of bleeding. This was cauterized using silver nitrate sticks and a portable bovee device. PEG tube site was then packed with gel foam and 4x4 gauze covered with abd pads and patient was placed in an abdominal binder. Upon rexamination of the site later avitene and surgicell were used to further achieve hemostasis at the site and was again covered with 4x4 and abd pad and placed in abdominal binder. Numerous ulcers on the feet, specifically the Medial maleolli bilaterally (unstageable), the left malleolus (stage 2), the hallux bilaterally (unstageable), the left heel ( unstageable), left medial ball of foot (stage 3 with dark eschar), right lateral leg just superior to the lateral maleollus and the entirety of the right lateral foot suface (stage 4 with concern for wet gangrene), left ischial ulcer and right shoulder ulcer (stage 2) PMH: HTN, CVA, blindness, aphasia, hemiplegia, prostate cancer PSH: Peg tube sep 2017 Allergies: NKDA social: hospice DNI/DNR Past Patient History - Infectious Disease Hx of Infectious Diseases: None - Tetanus Immunizations Tetanus Immunization: Unknown - Past Social History Smoking Status: Unknown If Ever Smoked - CARDIAC Hx Cardiac Disorders: Yes Hx Cardia Arrhythmia: Yes Hx Hypertension: Yes Hx Peripheral Edema: Yes (ble +1) - PULMONARY Hx Respiratory Disorders: No - NEUROLOGICAL Hx Neurological Disorder: Yes (ams) HX Cerebrovascular Accident: Yes (hemiplegia, aphasia) Other/Comment: syncopal episode 22 yrs ago, no verbal response - HEENT Hx HEENT Problems: Yes 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", right ear hearing loss - RENAL Hx Chronic Kidney Disease: No - ENDOCRINE/METABOLIC Hx Endocrine Disorders: No - HEMATOLOGICAL/ONCOLOGICAL Hx Blood Disorders: No Hx Cancer: (denies prostate ca) - INTEGUMENTARY Hx Dermatological Problems: Yes - MUSCULOSKELETAL/RHEUMATOLOGICAL Hx Falls: No - GASTROINTESTINAL Hx Gastrointestinal Disorders: Yes Other/Comment: esophagitis, gastritis, gas, uses stool softeners - GENITOURINARY/GYNECOLOGICAL Hx Genitourinary Disorders: Yes Hx Prostate Problems: Yes (denies ca, had prostate sx 2 months ago) Hx Urinary Tract Infection: Yes Other/Comment: dribbling since prostate sx when coughing or laughing - PSYCHIATRIC Hx Substance Use: No - SURGICAL HISTORY Hx Surgeries: Yes Other/Comment: left hip replacement 2000 - ANESTHESIA Hx Anesthesia: Yes Hx Anesthesia Reactions: No Hx Malignant Hyperthermia: No Meds Allergies/Adverse Reactions: Allergies Allergy/AdvReac Type Severity Reaction Status Date / Time No Known Allergies Allergy Verified 10/08/17 01:41 - Medications Medications: Current Medications Bacitracin (Bacitracin) 1 ea TOP DAILY [facility] Stop: 04/26/18 10:01 Last Admin: 04/22/18 11:20 Dose: 1 ea Collagenase (Santyl) 0 gm TOP BID [facility] Desmopressin Acetate (Ddavp) 10 mcg NS BID [facility] Last Admin: 04/22/18 10:30 Dose: 10 mcg Digoxin (Lanoxin) 0.125 mg IVP ONCE ONE Stop: 04/23/18 10:23 Enoxaparin Sodium (Lovenox) 40 mg SC DAILY [facility] PRN Reason: Protocol Last Admin: 04/21/18 09:53 Dose: 40 mg Ergocalciferol (Drisdol 50,000 Intl Units Cap) 1 cap PEG Q7D [facility] Last Admin: 04/20/18 10:44 Dose: Not Given Ferrous Gluconate (Fergon) 324 mg PO TID [facility] Last Admin: 04/22/18 09:05 Dose: Not Given Fluconazole (Diflucan) 100 mg PO DAILY [facility] PRN Reason: Protocol Stop: 04/30/18 10:01 Last Admin: 04/22/18 09:54 Dose: Not Given Meropenem (Merrem Iv 1 Gm Premix) 50 mls @ 100 mls/hr IVPB Q8 [facility] PRN Reason: Protocol Stop: 04/27/18 22:01 Last Admin: 04/22/18 05:39 Dose: 100 mls/hr Thiamine HCl 100 mg/ Sodium (Chloride) 51 mls @ 102 mls/hr IV DAILY [facility] Last Admin: 04/21/18 09:53 Dose: 102 mls/hr Linezolid (Zyvox 600mg/300ml D5w) 600 mg in 300 mls @ 200 mls/hr IVPB Q12 [facility] PRN Reason: Protocol Stop: 04/28/18 22:01 Last Admin: 04/22/18 13:03 Dose: 200 mls/hr Dextrose/Sodium Chloride (Dextrose 5%/0.45% Ns 1000 Ml) 1,000 mls @ 100 mls/hr IV .Q10H [facility] Insulin Human Regular (Humulin R Med) 0 units SC ACHS [facility] PRN Reason: Protocol Last Admin: 04/22/18 12:39 Dose: Not Given Multivitamins/Vitamin C (Multi-Delyn Liquid) 15 ml PEG 0800 [facility] Last Admin: 04/22/18 09:04 Dose: Not Given Physical Exam - Constitutional Appears: No Acute Distress, Confused, Cachectic - Head Exam Head Exam: ATRAUMATIC, NORMOCEPHALIC - Respiratory Exam Respiratory Exam: NORMAL BREATHING PATTERN - GI/Abdominal Exam GI & Abdominal Exam: Soft. absent: Distended, Firm, Guarding, Rebound, Rigid Additional comments: Peg tube site present with surrounding excoriation of the skin,hemostasis achieved with surgicell and avitene - Skin Additional comments: Numerous ulcers on the feet, specifically the Medial maleolli bilaterally ( unstageable), the left malleolus (stage 2), the hallux bilaterally (unstageable) , the left heel (unstageable), left medial ball of foot (stage 3 with dark eschar), right lateral leg just superior to the lateral maleollus and the entirety of the right lateral foot suface (stage 4 with wet gangrene). Stage 2 ischial ulcer. Unstageable ulver right shoulder. Results - Vital Signs Recent Vital Signs: Last Vital Signs Temp 97.6 F 04/22/18 11:38 Pulse 76 04/22/18 11:38 Resp 18 04/22/18 11:38 BP 121/81 04/22/18 11:38 Pulse Ox 94 L 04/22/18 06:00 - Labs Result Diagrams: 04/22/18 05:30 04/22/18 05:30 Labs: Laboratory Results - last 24 hr 04/21/18 04/21/18 04/22/18 21:21 23:29 05:30 WBC 8.7 RBC 3.80 Hgb 10.2 L Hct 33.8 L MCV 88.9 MCH 26.8 MCHC 30.2 L RDW 18.0 H Plt Count 269 MPV 10.2 Sodium Potassium Chloride Carbon Dioxide Anion Gap BUN Creatinine Est GFR ( Amer) Est GFR (Non-Af Amer) POC Glucose (mg/dL) 64 L 87 Random Glucose Calcium Total Bilirubin AST ALT Alkaline Phosphatase Total Protein Albumin Globulin Albumin/Globulin Ratio 04/22/18 04/22/18 05:30 11:26 WBC RBC Hgb Hct MCV MCH MCHC RDW Plt Count MPV Sodium 152 H Potassium 3.0 L Chloride 115 H Carbon Dioxide 31 Anion Gap 9 L BUN 20 Creatinine 0.8 Est GFR ( Amer) > 60 Est GFR (Non-Af Amer) > 60 POC Glucose (mg/dL) 102 Random Glucose 93 Calcium 8.0 L Total Bilirubin 0.5 AST 46 ALT 87 H Alkaline Phosphatase 181 H Total Protein 6.1 Albumin 2.3 L Globulin 3.9 Albumin/Globulin Ratio 0.6 L Assessment & Plan (1) PEG tube malfunction Assessment and Plan: 87 yr old male with PEG tube malfunction and bleeding PEG site hemostatic at this time will continue to monitor continue to hold blood thinners per cardiology recs no further surgical intervention at this time Status: Acute (2) Soft tissue infection Assessment and Plan: 87 yr old male with multiple soft tissue ulcers and one with obvious wet gangrene PT is DNR/DNI and is not a good operative candidate due to numerous comorbidities Will continue to monitor dressing changes BID with Santyl orders placed for Q2 position changes with wedge and air mattress Order placed for multipodus boots Wound culture taken and sent for lab evaluation Consult placed to podiatry for further evaluation No surgical intervention planned at this time María Elena Torre PGY 1 Status: Acute <Jules Donato - Last Filed: 04/23/18 08:42> Meds - Medications Medications: Current Medications Collagenase (Santyl) 0 gm TOP BID [facility] Last Admin: 04/22/18 18:22 Dose: 1 applic Desmopressin Acetate (Ddavp) 10 mcg NS BID [facility] Last Admin: 04/22/18 19:33 Dose: 10 mcg Digoxin (Lanoxin) 0.125 mg IVP ONCE ONE Stop: 04/23/18 10:23 Enoxaparin Sodium (Lovenox) 40 mg SC DAILY [facility] PRN Reason: Protocol Last Admin: 04/21/18 09:53 Dose: 40 mg Ergocalciferol (Drisdol 50,000 Intl Units Cap) 1 cap PEG Q7D [facility] Last Admin: 04/20/18 10:44 Dose: Not Given Ferrous Gluconate (Fergon) 324 mg PO TID [facility] Last Admin: 04/22/18 18:01 Dose: Not Given Fluconazole (Diflucan) 100 mg PO DAILY [facility] PRN Reason: Protocol Stop: 04/30/18 10:01 Last Admin: 04/22/18 09:54 Dose: Not Given Meropenem (Merrem Iv 1 Gm Premix) 50 mls @ 100 mls/hr IVPB Q8 [facility] PRN Reason: Protocol Stop: 04/27/18 22:01 Last Admin: 04/23/18 05:59 Dose: 100 mls/hr Thiamine HCl 100 mg/ Sodium (Chloride) 51 mls @ 102 mls/hr IV DAILY [facility] Last Admin: 04/22/18 16:05 Dose: 102 mls/hr Linezolid (Zyvox 600mg/300ml D5w) 600 mg in 300 mls @ 200 mls/hr IVPB Q12 [facility] PRN Reason: Protocol Stop: 04/28/18 22:01 Last Admin: 04/22/18 21:20 Dose: 200 mls/hr Dextrose/Sodium Chloride (Dextrose 5%/0.45% Ns 1000 Ml) 1,000 mls @ 75 mls/hr IV .[id number] [facility] Insulin Human Regular (Humulin R Med) 0 units SC ACHS [facility] PRN Reason: Protocol Last Admin: 04/23/18 08:05 Dose: Not Given Multivitamins/Vitamin C (Multi-Delyn Liquid) 15 ml PEG 0800 [facility] Last Admin: 04/23/18 08:07 Dose: Not Given Mupirocin (Bactroban Ointment) 0 gm TOP BID [facility] Results - Vital Signs Recent Vital Signs: Last Vital Signs Temp 97.7 F 04/23/18 06:00 Pulse 86 04/23/18 06:00 Resp 19 04/23/18 06:00 BP 120/78 04/23/18 06:00 Pulse Ox 93 L 04/23/18 06:00 - Labs Result Diagrams: 04/22/18 05:30 04/22/18 05:30 Labs: Laboratory Results - last 24 hr 04/19/18 04/22/18 11:10 11:26 POC Glucose (mg/dL) 102 Albumin (PEP) 1.6 L Hprmw-4-Akudnotuj 0.5 H Xdmjd-9-Fcstheysw 1.1 H Mhlv-2-Dpsddhie 0.4 Cglw-6-Lklstydx 0.5 Gamma Globulins 1.7 Abnorm Protein Band 1 0.47 H Abnorm Protein Band 2 TEST NOT PERFORMED Abnorm Protein Band 3 TEST NOT PERFORMED STEVE & SPEP Interp See note Serum Immunofixation Detected H Assessment & Plan - Assessment and Plan (Free Text) Assessment: Dx Bleeding PEG(malfunctioning-Removed) No surgery planned Anticoagulant d/c This consult done under my direct supervision Jodi Donato MD FACS
--- NOTE | 2018-04-22 14:36 | CP.PCM.CON ---
History of Present Illness - History of Present Illness History of Present Illness: Podiatry Consult Note - Dr. Jang 87 y/o male with PMHx of HTN, CVA, blindness, aphasia, hemiplegia, prostate cancer seen at bedside in telemetry with attending Dr. Jang for multiple wounds to bilateral lower extremities. Pt is nonverbal and aphasic, however, he is able to communicate that he is in pain when his legs are mobilized. Dressings in place to bilateral lower extremities. Review of Systems - Review of Systems All systems: reviewed and no additional remarkable complaints except (per HPI) Past Patient History - Infectious Disease Hx of Infectious Diseases: None - Tetanus Immunizations Tetanus Immunization: Unknown - Past Social History Smoking Status: Unknown If Ever Smoked - CARDIAC Hx Cardiac Disorders: Yes Hx Cardia Arrhythmia: Yes Hx Hypertension: Yes Hx Peripheral Edema: Yes (ble +1) - PULMONARY Hx Respiratory Disorders: No - NEUROLOGICAL Hx Neurological Disorder: Yes (ams) HX Cerebrovascular Accident: Yes (hemiplegia, aphasia) Other/Comment: syncopal episode 22 yrs ago, no verbal response - HEENT Hx HEENT Problems: Yes 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", right ear hearing loss - RENAL Hx Chronic Kidney Disease: No - ENDOCRINE/METABOLIC Hx Endocrine Disorders: No - HEMATOLOGICAL/ONCOLOGICAL Hx Blood Disorders: No Hx Cancer: (denies prostate ca) - INTEGUMENTARY Hx Dermatological Problems: Yes Other/Comment: bleeding from g tube site surrounded by excoriated skin, dark brown drainage,dark dry red scab r fa near wrist, multiple red brown open wounds left foot, multiple open wound and large necrotic wound to right foot, sacrum open wound, knees red dry skin, see skin assesment of admission assesment for mor details - MUSCULOSKELETAL/RHEUMATOLOGICAL Hx Falls: No - GASTROINTESTINAL Hx Gastrointestinal Disorders: Yes Other/Comment: esophagitis, gastritis, gas, uses stool softeners - GENITOURINARY/GYNECOLOGICAL Hx Genitourinary Disorders: Yes Hx Prostate Problems: Yes (denies ca, had prostate sx 2 months ago) Hx Urinary Tract Infection: Yes Other/Comment: dribbling since prostate sx when coughing or laughing - PSYCHIATRIC Hx Substance Use: No - SURGICAL HISTORY Hx Surgeries: Yes Other/Comment: left hip replacement 2000 - ANESTHESIA Hx Anesthesia: Yes Hx Anesthesia Reactions: No Hx Malignant Hyperthermia: No Meds Allergies/Adverse Reactions: Allergies Allergy/AdvReac Type Severity Reaction Status Date / Time No Known Allergies Allergy Verified 10/08/17 01:41 - Medications Medications: Current Medications Bacitracin (Bacitracin) 1 ea TOP DAILY [facility] Stop: 04/26/18 10:01 Last Admin: 04/22/18 11:20 Dose: 1 ea Collagenase (Santyl) 0 gm TOP BID [facility] Desmopressin Acetate (Ddavp) 10 mcg NS BID [facility] Last Admin: 04/22/18 10:30 Dose: 10 mcg Digoxin (Lanoxin) 0.125 mg IVP ONCE ONE Stop: 04/23/18 10:23 Enoxaparin Sodium (Lovenox) 40 mg SC DAILY [facility] PRN Reason: Protocol Last Admin: 04/21/18 09:53 Dose: 40 mg Ergocalciferol (Drisdol 50,000 Intl Units Cap) 1 cap PEG Q7D [facility] Last Admin: 04/20/18 10:44 Dose: Not Given Ferrous Gluconate (Fergon) 324 mg PO TID [facility] Last Admin: 04/22/18 13:42 Dose: Not Given Fluconazole (Diflucan) 100 mg PO DAILY [facility] PRN Reason: Protocol Stop: 04/30/18 10:01 Last Admin: 04/22/18 09:54 Dose: Not Given Meropenem (Merrem Iv 1 Gm Premix) 50 mls @ 100 mls/hr IVPB Q8 [facility] PRN Reason: Protocol Stop: 04/27/18 22:01 Last Admin: 04/22/18 05:39 Dose: 100 mls/hr Thiamine HCl 100 mg/ Sodium (Chloride) 51 mls @ 102 mls/hr IV DAILY [facility] Last Admin: 04/21/18 09:53 Dose: 102 mls/hr Linezolid (Zyvox 600mg/300ml D5w) 600 mg in 300 mls @ 200 mls/hr IVPB Q12 [facility] PRN Reason: Protocol Stop: 04/28/18 22:01 Last Admin: 04/22/18 13:03 Dose: 200 mls/hr Dextrose/Sodium Chloride (Dextrose 5%/0.45% Ns 1000 Ml) 1,000 mls @ 100 mls/hr IV .Q10H [facility] Insulin Human Regular (Humulin R Med) 0 units SC ACHS [facility] PRN Reason: Protocol Last Admin: 04/22/18 12:39 Dose: Not Given Multivitamins/Vitamin C (Multi-Delyn Liquid) 15 ml PEG 0800 [facility] Last Admin: 04/22/18 09:04 Dose: Not Given Physical Exam - Constitutional Appears: Well, Non-toxic, No Acute Distress - Extremities Exam Additional comments: Lower extremity exam: Vasc: DP/PT pulses are nonpalpable. Temperature gradient warm to cool. Pedal hair growth absent. CFT delayed but present to all digits. Derm: Multiple ulcerations noted to bilateral lower extremities- Left: Soft necrotic heel eschar noted with mild marleni wound erythema. Unstageable deep tissue injuries noted to lateral rearfoot and forefoot. Stage 2 pressure ulcerations noted to lateral malleolus and lateral aspect of 5th digit. No purulence or malodor noted. Right: Fibronecrotic ulceration extending along entirety of right foot from 5th MTPJ to posterior aspect of heel with fluctuant boggy eschar, significant malodor, purulent drainage and fibrous slough. (+) probe to bone is noted at level of 5th metatarsal base. Ortho: Rigid LE contractures noted B/L. Moderate-severe tenderness to palpation of all ulceration sites, especially at right lateral foot. Neuro: Protective sensation grossly intact - Neurological Exam Neurological exam: Alert - Psychiatric Exam Psychiatric exam: Normal Affect, Normal Mood Results - Vital Signs Recent Vital Signs: Last Vital Signs Temp 97.6 F 04/22/18 11:38 Pulse 76 04/22/18 11:38 Resp 18 04/22/18 11:38 BP 121/81 04/22/18 11:38 Pulse Ox 94 L 04/22/18 06:00 - Labs Result Diagrams: 04/22/18 05:30 04/22/18 05:30 Labs: Laboratory Results - last 24 hr 04/21/18 04/21/18 04/22/18 21:21 23:29 05:30 WBC 8.7 RBC 3.80 Hgb 10.2 L Hct 33.8 L MCV 88.9 MCH 26.8 MCHC 30.2 L RDW 18.0 H Plt Count 269 MPV 10.2 Sodium Potassium Chloride Carbon Dioxide Anion Gap BUN Creatinine Est GFR ( Amer) Est GFR (Non-Af Amer) POC Glucose (mg/dL) 64 L 87 Random Glucose Calcium Total Bilirubin AST ALT Alkaline Phosphatase Total Protein Albumin Globulin Albumin/Globulin Ratio 04/22/18 04/22/18 05:30 11:26 WBC RBC Hgb Hct MCV MCH MCHC RDW Plt Count MPV Sodium 152 H Potassium 3.0 L Chloride 115 H Carbon Dioxide 31 Anion Gap 9 L BUN 20 Creatinine 0.8 Est GFR ( Amer) > 60 Est GFR (Non-Af Amer) > 60 POC Glucose (mg/dL) 102 Random Glucose 93 Calcium 8.0 L Total Bilirubin 0.5 AST 46 ALT 87 H Alkaline Phosphatase 181 H Total Protein 6.1 Albumin 2.3 L Globulin 3.9 Albumin/Globulin Ratio 0.6 L Assessment & Plan - Assessment and Plan (Free Text) Assessment: 87 y/o male with bilateral lower extremity ulcerations and deep tissue injuries secondary to pressure Plan: Pt seen and evaluated with attending Dr. Jang All wounds cleaned with saline and dressed with Betadine and Optifoam Multipodus boots ordered, to be worn at all times in bed Strongly recommend AKA at this time due to significant contractures and pain as well as infected necrotic right foot ulcer Will continue to follow
--- NOTE | 2018-04-22 15:36 | CP.PCM.PN ---
Subjective - Date & Time of Evaluation Date of Evaluation: 04/22/18 Time of Evaluation: 15:35 - Subjective Subjective: Nephrology Consultation Note: Assessment: Stable Hypernatremia with very low urine SG (dilute urine) favors Diabetes insipidus and likely superimposed limited fluid intake due to PEG tube dysfunction leading to dehydration and hypovolemia metabolic alkalosis with respi compensation SVT Anemia Abnormal LFT cellulitis around PEG tube hypertension, hyperlipidemia, CVA with residual deficit, aphasia, visual loss, non communicative, skilled nursing NH resident Plan maintain hemodynamics stable. Patient not on ACEI/ARB due to low BP. Monitor Input/Output, daily weights and electrolytes IVF as D5 0.45% saline @ 100 ml/hr while in hospital started thiamine and MVI supplementation started DDAVP NS 10 mcg bid for diabetes insipidus PRBC as needed started iron and vit D supplements agree with palliative care. pt being planned for hospice Dose meds/antibiotics for normal GFR. Glycemic control, aspiration/fall precautions Further work up/management as per primary team Thanks for allowing me to participate in care of your patient. 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 episodes of SVT. PEG tube leakage reported to be better Physical Examination: General Appearance: Comfortable, in no acute respiratory distress, elderly male , contracted extremities, ill appearing Vitals reviewed and noted as below Head; Atraumatic, normocephalic ENT: unable EYES: unable Neck; supple no lymphadenopathy, no thyromegaly or bruit Lungs: Normal respiratory rate/effort. Breath sounds bilateral equal and clear anteriorly except some rales Rt side Heart: Normal rate. s1s2 normal. No rub or gallop. Extremities: no edema. No varicose veins. both feets dressed, has wounds Neurological: Patient is non communicative unresponsive with contractures Skin: Warm and dry. Normal turgor. No rash. Palpitation: Normal elasticity for age Abdomen: limited due to his position and abdominal binder Psych: unable MSK: no joint tenderness or swelling. : unable Labs/imaging reviewed. Past medical history, past surgical history, family history, social history, allergy reviewed and noted as below Family hx: unable Work up: UA SG <1.005 Objective - Vital Signs/Intake and Output Vital Signs (last 24 hours): Temp Pulse Resp BP Pulse Ox 97.6 F 76 18 121/81 94 L 04/22/18 11:38 04/22/18 11:38 04/22/18 11:38 04/22/18 11:38 04/22/18 06:00 Intake and Output: 04/22/18 04/22/18 06:59 18:59 Intake Total 1045 Balance 1045 - Medications Medications: Current Medications Bacitracin (Bacitracin) 1 ea TOP DAILY [facility] Stop: 04/26/18 10:01 Last Admin: 04/22/18 11:20 Dose: 1 ea Collagenase (Santyl) 0 gm TOP BID [facility] Desmopressin Acetate (Ddavp) 10 mcg NS BID [facility] Last Admin: 04/22/18 10:30 Dose: 10 mcg Digoxin (Lanoxin) 0.125 mg IVP ONCE ONE Stop: 04/23/18 10:23 Enoxaparin Sodium (Lovenox) 40 mg SC DAILY [facility] PRN Reason: Protocol Last Admin: 04/21/18 09:53 Dose: 40 mg Ergocalciferol (Drisdol 50,000 Intl Units Cap) 1 cap PEG Q7D [facility] Last Admin: 04/20/18 10:44 Dose: Not Given Ferrous Gluconate (Fergon) 324 mg PO TID [facility] Last Admin: 04/22/18 13:42 Dose: Not Given Fluconazole (Diflucan) 100 mg PO DAILY [facility] PRN Reason: Protocol Stop: 04/30/18 10:01 Last Admin: 04/22/18 09:54 Dose: Not Given Meropenem (Merrem Iv 1 Gm Premix) 50 mls @ 100 mls/hr IVPB Q8 [facility] PRN Reason: Protocol Stop: 04/27/18 22:01 Last Admin: 04/22/18 14:37 Dose: 100 mls/hr Thiamine HCl 100 mg/ Sodium (Chloride) 51 mls @ 102 mls/hr IV DAILY [facility] Last Admin: 04/21/18 09:53 Dose: 102 mls/hr Linezolid (Zyvox 600mg/300ml D5w) 600 mg in 300 mls @ 200 mls/hr IVPB Q12 [facility] PRN Reason: Protocol Stop: 04/28/18 22:01 Last Admin: 04/22/18 13:03 Dose: 200 mls/hr Dextrose/Sodium Chloride (Dextrose 5%/0.45% Ns 1000 Ml) 1,000 mls @ 100 mls/hr IV .Q10H [facility] Insulin Human Regular (Humulin R Med) 0 units SC ACHS [facility] PRN Reason: Protocol Last Admin: 04/22/18 12:39 Dose: Not Given Multivitamins/Vitamin C (Multi-Delyn Liquid) 15 ml PEG 0800 [facility] Last Admin: 04/22/18 09:04 Dose: Not Given - Labs Labs: 04/22/18 05:30 04/22/18 05:30 PT 16.0 SECONDS (9.4-12.5) H 04/18/18 11:50 INR 1.38 (0.93-1.08) H 04/18/18 11:50 APTT 32.4 Seconds (25.1-36.5) 04/18/18 11:50
--- NOTE | 2018-04-22 15:42 | CP.PCM.PN ---
Subjective - Date & Time of Evaluation Date of Evaluation: 04/22/18 Time of Evaluation: 08:40 - Subjective Subjective: Patient is not in distress but had some bleeding around PEG site area last night , no fevers. Objective - Vital Signs/Intake and Output Vital Signs (last 24 hours): Temp Pulse Resp BP Pulse Ox 97.8 F 90 20 96/59 L 94 L 04/22/18 06:00 04/22/18 06:00 04/22/18 06:00 04/22/18 06:00 04/22/18 06:00 Intake and Output: 04/22/18 04/22/18 06:59 18:59 Intake Total 1045 Balance 1045 - Medications Medications: Current Medications Bacitracin (Bacitracin) 1 ea TOP DAILY [facility] Stop: 04/26/18 10:01 Last Admin: 04/21/18 09:54 Dose: 1 ea Desmopressin Acetate (Ddavp) 10 mcg NS BID [facility] Last Admin: 04/21/18 18:03 Dose: 10 mcg Enoxaparin Sodium (Lovenox) 40 mg SC DAILY [facility] PRN Reason: Protocol Last Admin: 04/21/18 09:53 Dose: 40 mg Ergocalciferol (Drisdol 50,000 Intl Units Cap) 1 cap PEG Q7D [facility] Last Admin: 04/20/18 10:44 Dose: Not Given Ferrous Gluconate (Fergon) 324 mg PO TID [facility] Last Admin: 04/21/18 18:24 Dose: Not Given Fluconazole (Diflucan) 100 mg PO DAILY [facility] PRN Reason: Protocol Stop: 04/30/18 10:01 Last Admin: 04/21/18 10:01 Dose: Not Given Meropenem (Merrem Iv 1 Gm Premix) 50 mls @ 100 mls/hr IVPB Q8 [facility] PRN Reason: Protocol Stop: 04/27/18 22:01 Last Admin: 04/22/18 05:39 Dose: 100 mls/hr Thiamine HCl 100 mg/ Sodium (Chloride) 51 mls @ 102 mls/hr IV DAILY [facility] Last Admin: 04/21/18 09:53 Dose: 102 mls/hr Linezolid (Zyvox 600mg/300ml D5w) 600 mg in 300 mls @ 200 mls/hr IVPB Q12 [facility] PRN Reason: Protocol Stop: 04/28/18 22:01 Last Admin: 04/22/18 00:04 Dose: 200 mls/hr Dextrose/Sodium Chloride (Dextrose 5%/0.45% Ns 1000 Ml) 1,000 mls @ 75 mls/hr IV .[id number] [facility] Last Admin: 04/22/18 05:47 Dose: 75 mls/hr Potassium Chloride (Potassium Chloride 10 Meq/100 Ml) 10 meq in 100 mls @ 50 mls/hr IVPB Q2H [facility] Stop: 04/22/18 12:14 Insulin Human Regular (Humulin R Med) 0 units SC ACHS [facility] PRN Reason: Protocol Last Admin: 04/21/18 23:58 Dose: Not Given Multivitamins/Vitamin C (Multi-Delyn Liquid) 15 ml PEG 0800 [facility] Last Admin: 04/21/18 08:25 Dose: Not Given - Labs Labs: 04/22/18 05:30 04/22/18 05:30 PT 16.0 SECONDS (9.4-12.5) H 04/18/18 11:50 INR 1.38 (0.93-1.08) H 04/18/18 11:50 APTT 32.4 Seconds (25.1-36.5) 04/18/18 11:50 - Constitutional Appears: Chronically Ill - Head Exam Head Exam: NORMAL INSPECTION - Neck Exam Neck Exam: absent: Meningismus - Respiratory Exam Respiratory Exam: Decreased Breath Sounds - Cardiovascular Exam Cardiovascular Exam: +S1, +S2 - GI/Abdominal Exam GI & Abdominal Exam: Soft. absent: Tenderness Additional comments: PEG site area with some surrounding erythema, no bleeding, no pus or discharge Assessment and Plan - Assessment and Plan (Free Text) Plan: Assessment severe sepsis with PEG tube site cellulitis, growing MRSA and Proteus history of bilateral lower extremity cellulitis, growing MSSA, Serratia and Klebsiella history of cardiac arrhythmia and syncope history of prostate infection S/P prostate surgery gastritis and duodenitis Plan continue Zyvox, Merrem and Diflucan day 4 to complete 7-10 days of therapy will continue to monitor clinically follow up further plans of Surgery overall prognosis is poor
[2018-04-22] MEDS: Thiamine 100 MG in Sodium Chloride 0.9% 50 ML IV SCH (16:05)
[2018-04-22] MEDS ORDERED: Collagenase 250 Units/gm Ointment(30 gm) TOP SCH (18:00)
[2018-04-22] MEDS: Collagenase 250 Units/gm Ointment(30 gm) TOP SCH (18:22)
[2018-04-23 05:06] LABS: ALBUMIN (PEP) 1.6 g/dL (3.8-4.8); ALPHA-1-GLOBULIN (PEP) 0.5 g/dL (0.2-0.3)
[2018-04-23] MEDS: Meropenem IV 1 gm in NS 50 ML IVPB SCH ×3 (05:59→21:43)
[2018-04-23] MEDS: Insulin Reg-MEDIUM-Coverage SC SCH ×4 (08:05→22:00)
[2018-04-23] MEDS: Multi Vitamins 15 mL UD Oral Solution PEG SCH (08:07)
--- NOTE | 2018-04-23 08:12 | CP.PCM.PN ---
<Sola Noelah - Last Filed: 04/23/18 17:36> Subjective - Date & Time of Evaluation Date of Evaluation: 04/23/18 Time of Evaluation: 08:12 - Subjective Subjective: General surgery progress note for Dr. Donato Patient seen and examined this AM. He is nonverbal and has all extremities severely contracted. PEG site was redressed with avitene and bleeding seems to have stopped. Milk of Magnesia was placed on the surrounding skin. Abd pads and 4x4s were used to dress the wound. A new abdominal binder was placed in the room to be changed the next time the patient was turned. Objective - Vital Signs/Intake and Output Vital Signs (last 24 hours): Temp Pulse Resp BP Pulse Ox 97.7 F 86 19 120/78 93 L 04/23/18 06:00 04/23/18 06:00 04/23/18 06:00 04/23/18 06:00 04/23/18 06:00 Intake and Output: 04/23/18 04/23/18 06:59 18:59 Intake Total 0 Balance 0 - Medications Medications: Current Medications Bacitracin (Bacitracin) 1 ea TOP DAILY [facility] Stop: 04/26/18 10:01 Last Admin: 04/22/18 11:20 Dose: 1 ea Collagenase (Santyl) 0 gm TOP BID [facility] Last Admin: 04/22/18 18:22 Dose: 1 applic Desmopressin Acetate (Ddavp) 10 mcg NS BID [facility] Last Admin: 04/22/18 19:33 Dose: 10 mcg Digoxin (Lanoxin) 0.125 mg IVP ONCE ONE Stop: 04/23/18 10:23 Enoxaparin Sodium (Lovenox) 40 mg SC DAILY [facility] PRN Reason: Protocol Last Admin: 04/21/18 09:53 Dose: 40 mg Ergocalciferol (Drisdol 50,000 Intl Units Cap) 1 cap PEG Q7D [facility] Last Admin: 04/20/18 10:44 Dose: Not Given Ferrous Gluconate (Fergon) 324 mg PO TID [facility] Last Admin: 04/22/18 18:01 Dose: Not Given Fluconazole (Diflucan) 100 mg PO DAILY [facility] PRN Reason: Protocol Stop: 04/30/18 10:01 Last Admin: 04/22/18 09:54 Dose: Not Given Meropenem (Merrem Iv 1 Gm Premix) 50 mls @ 100 mls/hr IVPB Q8 [facility] PRN Reason: Protocol Stop: 04/27/18 22:01 Last Admin: 04/23/18 05:59 Dose: 100 mls/hr Thiamine HCl 100 mg/ Sodium (Chloride) 51 mls @ 102 mls/hr IV DAILY [facility] Last Admin: 04/22/18 16:05 Dose: 102 mls/hr Linezolid (Zyvox 600mg/300ml D5w) 600 mg in 300 mls @ 200 mls/hr IVPB Q12 [facility] PRN Reason: Protocol Stop: 04/28/18 22:01 Last Admin: 04/22/18 21:20 Dose: 200 mls/hr Dextrose/Sodium Chloride (Dextrose 5%/0.45% Ns 1000 Ml) 1,000 mls @ 100 mls/hr IV .Q10H [facility] Last Admin: 04/22/18 22:37 Dose: 100 mls/hr Insulin Human Regular (Humulin R Med) 0 units SC ACHS [facility] PRN Reason: Protocol Last Admin: 04/22/18 22:30 Dose: Not Given Multivitamins/Vitamin C (Multi-Delyn Liquid) 15 ml PEG 0800 [facility] Last Admin: 04/22/18 09:04 Dose: Not Given - Labs Labs: 04/22/18 05:30 04/22/18 05:30 PT 16.0 SECONDS (9.4-12.5) H 04/18/18 11:50 INR 1.38 (0.93-1.08) H 04/18/18 11:50 APTT 32.4 Seconds (25.1-36.5) 04/18/18 11:50 - Constitutional Appears: Confused, Cachectic - Head Exam Head Exam: ATRAUMATIC, NORMOCEPHALIC - Respiratory Exam Respiratory Exam: NORMAL BREATHING PATTERN - GI/Abdominal Exam GI & Abdominal Exam: Soft Additional comments: Peg tube site appears excoriated with redness extending out from the site. no active bleeding noted. previous vitene and surgicell were removed and new avitene was placed. - Neurological Exam Neurological Exam: absent: Alert, Oriented x3, Reflexes Normal - Psychiatric Exam Additional comments: patient is nonverbal and appears to only respond to painful external stimuli - Skin Skin Exam: Rash Additional comments: skin surrounding PEG tube site is erythematous and excoriated Assessment and Plan (1) PEG tube malfunction Assessment & Plan: no surgery planned will continue to monitor for bleeding will order bactroban at PEG tube site Status: Acute (2) Soft tissue infection Assessment & Plan: No surgery planned to due to numerous comorbidity and patient DNR/DNI status WIll continue to monitor Podiatry reccomendation for right AKA noted Status: Acute <Jules Donato - Last Filed: 04/24/18 10:09> Objective - Vital Signs/Intake and Output Vital Signs (last 24 hours): Temp Pulse Resp BP Pulse Ox 98.1 F 71 20 124/61 96 04/24/18 06:00 04/24/18 05:57 04/24/18 05:57 04/24/18 05:57 04/24/18 05:57 Intake and Output: 04/24/18 04/24/18 06:59 18:59 Intake Total 2225 Balance 2225 - Medications Medications: Current Medications Albuterol/Ipratropium (Duoneb 3 Mg/0.5 Mg (3 Ml) Ud) 3 ml IH [id number] [facility] Collagenase (Santyl) 0 gm TOP BID [facility] Last Admin: 04/23/18 17:22 Dose: 3 applic Desmopressin Acetate (Ddavp) 10 mcg NS BID [facility] Last Admin: 04/23/18 17:22 Dose: 10 mcg Enoxaparin Sodium (Lovenox) 40 mg SC DAILY [facility] PRN Reason: Protocol Last Admin: 04/21/18 09:53 Dose: 40 mg Ergocalciferol (Drisdol 50,000 Intl Units Cap) 1 cap PEG Q7D [facility] Last Admin: 04/20/18 10:44 Dose: Not Given Ferrous Gluconate (Fergon) 324 mg PO TID [facility] Last Admin: 04/23/18 18:12 Dose: Not Given Fluconazole (Diflucan) 100 mg PO DAILY [facility] PRN Reason: Protocol Stop: 04/30/18 10:01 Last Admin: 04/23/18 10:28 Dose: Not Given Meropenem (Merrem Iv 1 Gm Premix) 50 mls @ 100 mls/hr IVPB Q8 [facility] PRN Reason: Protocol Stop: 04/27/18 22:01 Last Admin: 04/24/18 05:26 Dose: 100 mls/hr Thiamine HCl 100 mg/ Sodium (Chloride) 51 mls @ 102 mls/hr IV DAILY [facility] Last Admin: 04/23/18 19:06 Dose: 102 mls/hr Linezolid (Zyvox 600mg/300ml D5w) 600 mg in 300 mls @ 200 mls/hr IVPB Q12 [facility] PRN Reason: Protocol Stop: 04/28/18 22:01 Last Admin: 04/23/18 21:43 Dose: 200 mls/hr Amino Acids/Electrolytes/Dextrose (Clinimix 4.25/5 % "E" (2000 Ml)) 2,000 mls @ 83 mls/hr IV .Q24H [facility] Stop: 04/26/18 17:59 Last Admin: 04/23/18 21:43 Dose: 83 mls/hr Fat Emulsion Intravenous (Intralipid 20%) 250 mls @ 21 mls/hr IV MWF@1800 [facility] Insulin Human Regular (Humulin R Med) 0 units SC ACHS [facility] PRN Reason: Protocol Last Admin: 04/23/18 22:00 Dose: Not Given Multivitamins/Vitamin C (Multi-Delyn Liquid) 15 ml PEG 0800 [facility] Last Admin: 04/23/18 08:07 Dose: Not Given Mupirocin (Bactroban Ointment) 0 gm TOP BID [facility] Last Admin: 04/23/18 17:22 Dose: 1 applic - Labs Labs: 04/24/18 06:00 04/24/18 06:00 PT 16.0 SECONDS (9.4-12.5) H 04/18/18 11:50 INR 1.38 (0.93-1.08) H 04/18/18 11:50 APTT 32.4 Seconds (25.1-36.5) 04/18/18 11:50 Assessment and Plan - Assessment and Plan (Free Text) Assessment: Patient is terminal with no quality of any life. PEG CANNOT be reinserted dur to infection. Podiatry consult NOT necessary asPMD Attending is actively seeking HOSPICE from [facility] Supportive measures in effect now Jodi Donato MD FACS
[2018-04-23] MEDS ORDERED: Dextrose 5%/0.45% NS 1,000 ML IV SCH ×3 (08:28→12:36)
--- NOTE | 2018-04-23 08:36 | CP.PCM.PCO ---
Physician Communication Note - Physician Communication Note Physician Communication Note: Bactroban PEG Site/Bleeding controlled/? Hospice Plan
[2018-04-23 08:40] LABS: HEMOGLOBIN 10.7 g/dL (14.0-18.0); MEAN CELL VOLUME 88.7 fl (80.0-105.0); MEAN CORPUSCULAR HEMOGLOBIN 27.6 pg (25.0-35.0); MEAN CORPUSCULAR HGB CONC 31.1 g/dl (31.0-37.0); MEAN PLATELET VOLUME 10.2 fl (7.0-11.0); RBC 3.88 10^6/uL (3.5-6.1); RED CELL DISTRIBUTION WIDTH 17.7 % (11.5-14.5); WHITE BLOOD COUNT 10.2 10^3/ul (4.5-11.0)
[2018-04-23 08:51] LABS: ALB/GLOB RATIO 0.6 (1.1-1.8); ALBUMIN 2.3 g/dL (3.0-4.8); ALT/SGPT 75 U/L (7-56); AST/SGOT 39 U/L (17-59); BLOOD UREA NITROGEN 16 mg/dL (7-21); CALCIUM 7.8 mg/dL (8.4-10.5); GFR AFRICAN-AMERICAN > 60; GFR NON-AFRICAN AMERICAN > 60
--- NOTE | 2018-04-23 09:39 | PN ---
DATE: 04/23/2018 CARDIOLOGY FOLLOWUP SUBJECTIVE: The patient is in no distress. OBJECTIVE: VITAL SIGNS: Blood pressure 120/80, heart rate is in the 80s. NECK: Negative JVD. LUNGS: Decreased breath sounds. HEART: Reveal S1, S2. EXTREMITIES: Without edema. LABORATORY DATA: Hemoglobin is 10.6. IMPRESSION: 1. Status post supraventricular tachycardia. 2. History of cerebrovascular accident. 3. Hypokalemia, which is better. 4. Sepsis. Given these findings, we will start p.o. Lasix as soon as the patient's can be used for medications. Joe Garcia MD
--- NOTE | 2018-04-23 10:14 | PN ---
DATE: 04/23/2018 SUBJECTIVE: I saw him resting comfortably in bed. His eyes are open. He is nonverbal. He is contracted. He is on lots of medications, Collagen Hemostat, bacitracin, DDAVP. He is on dextrose, Diflucan, Drisdol, Fergon, insulin coverage, Lanoxin IV, Lovenox, Merrem IV, milk of magnesia as needed, multivitamin, Santyl, vitamin B1 and Zyvox IV. He has multiple issues. PHYSICAL EXAMINATION: VITAL SIGNS: He has 97.7 temp, 86 pulse, 120/78 blood pressure, 19 respiratory rate, 98% O2 sat on 2 L. HEENT: His head is atraumatic, normocephalic. His eyes are open. HEART: Regular rate. LUNGS: Decreased breath sounds, but clear. ABDOMEN: Soft. He has got bleeding coming from the PEG tube site with discharge and bleeding. EXTREMITIES: Contracted x4 with skin ulcers. He has got very poor peripheral vasculature and he has got problems that need fem-pop or even amputation at this time, no surgeon wants to do it. LABORATORY DATA: He has a 102 blood sugar. Labs today has not populated back yet. They are ordered. Also, he has not had a feeding tube in, in the last 2 to 3 days. We will start him on PPN. He is being seen by Surgery, Infectious Disease, Renal, Cardiology. He is really in a very poor situation. I consulted Loyda Lowe, the hospice nurse to try to get him on hospice, so we will recheck with power of energy attorney. He has had some supraventricular tachycardia. 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 He has had now peripheral vascular disease, peripheral artery disease. He has had multiple problems with his lungs in the past, severe sepsis, PEG tube site cellulitis growing methicillin-resistant Staphylococcus aureus and Proteus and bleeding and he has had an old CVA. He is bedridden. I am trying to get him on hospice and may be PPN and probably get the feeding tube back in if possible. Yuri Mcleod DO
[2018-04-23] MEDS ORDERED: Digoxin 500 mcg/2ml (0.5 mg/2ml) Inj IVP ONE (10:22)
--- NOTE | 2018-04-23 10:42 | CP.PCM.PN ---
Subjective - Date & Time of Evaluation Date of Evaluation: 04/23/18 Time of Evaluation: 08:45 - Subjective Subjective: No fevers, not in distressi in bed. Objective - Vital Signs/Intake and Output Vital Signs (last 24 hours): Temp Pulse Resp BP Pulse Ox 97.7 F 86 19 120/78 93 L 04/23/18 06:00 04/23/18 06:00 04/23/18 06:00 04/23/18 06:00 04/23/18 06:00 Intake and Output: 04/23/18 04/23/18 06:59 18:59 Intake Total 0 Balance 0 - Medications Medications: Current Medications Collagenase (Santyl) 0 gm TOP BID [facility] Last Admin: 04/22/18 18:22 Dose: 1 applic Desmopressin Acetate (Ddavp) 10 mcg NS BID [facility] Last Admin: 04/22/18 19:33 Dose: 10 mcg Digoxin (Lanoxin) 0.125 mg IVP ONCE ONE Stop: 04/23/18 10:23 Enoxaparin Sodium (Lovenox) 40 mg SC DAILY [facility] PRN Reason: Protocol Last Admin: 04/21/18 09:53 Dose: 40 mg Ergocalciferol (Drisdol 50,000 Intl Units Cap) 1 cap PEG Q7D [facility] Last Admin: 04/20/18 10:44 Dose: Not Given Ferrous Gluconate (Fergon) 324 mg PO TID [facility] Last Admin: 04/22/18 18:01 Dose: Not Given Fluconazole (Diflucan) 100 mg PO DAILY [facility] PRN Reason: Protocol Stop: 04/30/18 10:01 Last Admin: 04/22/18 09:54 Dose: Not Given Meropenem (Merrem Iv 1 Gm Premix) 50 mls @ 100 mls/hr IVPB Q8 [facility] PRN Reason: Protocol Stop: 04/27/18 22:01 Last Admin: 04/23/18 05:59 Dose: 100 mls/hr Thiamine HCl 100 mg/ Sodium (Chloride) 51 mls @ 102 mls/hr IV DAILY [facility] Last Admin: 04/22/18 16:05 Dose: 102 mls/hr Linezolid (Zyvox 600mg/300ml D5w) 600 mg in 300 mls @ 200 mls/hr IVPB Q12 [facility] PRN Reason: Protocol Stop: 04/28/18 22:01 Last Admin: 04/22/18 21:20 Dose: 200 mls/hr Dextrose/Sodium Chloride (Dextrose 5%/0.45% Ns 1000 Ml) 1,000 mls @ 75 mls/hr IV .[id number] [facility] Insulin Human Regular (Humulin R Med) 0 units SC ACHS [facility] PRN Reason: Protocol Last Admin: 04/23/18 08:05 Dose: Not Given Multivitamins/Vitamin C (Multi-Delyn Liquid) 15 ml PEG 0800 [facility] Last Admin: 04/23/18 08:07 Dose: Not Given Mupirocin (Bactroban Ointment) 0 gm TOP BID [facility] - Labs Labs: 04/23/18 08:20 04/23/18 08:20 PT 16.0 SECONDS (9.4-12.5) H 04/18/18 11:50 INR 1.38 (0.93-1.08) H 04/18/18 11:50 APTT 32.4 Seconds (25.1-36.5) 04/18/18 11:50 - Constitutional Appears: Chronically Ill - Head Exam Head Exam: NORMAL INSPECTION - Respiratory Exam Respiratory Exam: Decreased Breath Sounds - Cardiovascular Exam Cardiovascular Exam: +S1, +S2 - GI/Abdominal Exam GI & Abdominal Exam: Soft. absent: Tenderness Additional comments: dressings in place over the PEG site Assessment and Plan - Assessment and Plan (Free Text) Plan: Assessment severe sepsis with PEG tube site cellulitis, growing MRSA and Proteus history of bilateral lower extremity cellulitis, growing MSSA, Serratia and Klebsiella history of cardiac arrhythmia and syncope history of prostate infection S/P prostate surgery gastritis and duodenitis Plan continue Zyvox, Merrem and Diflucan day 5 to complete 7-10 days of therapy will continue to monitor clinically discussed with Dr. Mcleod - planning to see if patient can be put on hospice overall prognosis is poor
[2018-04-23] MEDS: Mupirocin 2% Ointment 15 GM TUBE TOP SCH ×2 (10:45→17:22)
[2018-04-23] MEDS: Collagenase 250 Units/gm Ointment(30 gm) TOP SCH ×2 (10:46→17:22)
[2018-04-23] MEDS: Desmopressin Nasal 10 mcg/Spray (5 ml) NS SCH ×2 (10:46→17:22)
[2018-04-23 10:58] VITALS: PULSE 73
--- NOTE | 2018-04-23 11:25 | CP.PCM.CON ---
History of Present Illness - History of Present Illness History of Present Illness: palliative consult requested by Dr Jodi Mcleod Reason: Goals of care 85 year old resident of [facility] with history of right eye blindness , hearing loss who was sent on with abdominal wall infection secondary to non functioning PEG tube. He was febrile on admission. CT of abdomen showed soft tissue thickening and a focus of air in anterior abdominal wall at site of PEG tube tract, no evidence of abscess or fluid collection. Chest x ray showed atelectasis vs pneumonia of LLL. Blood and urine cultures negative. Gastrostomy wound culture positive for Proteus, MSRA ,Rain Albicans PMH:right eye blindness, hearing loss,HTN, bilateral SFA, popliteal and trifurcation disease, multiple foot wounds, scleroderma, SVT,RBB, CVA, hemipilegia,aphasia PSH:Left hip replacement, prostate surgery, PEG. Social History: Former smoker, no alcohol or drug use. Resident of [facility]. Family History: [place] contributory. Advance Care Planning: The patient does not have an Advanced Directive. He has public guardian, Francisco Butt. Vital Signs: T 97.7, P 91, BP 100/74, R19, 02 sat 93% Labs:Wbc 10.2, Hgb 10.7, Plt 255, Na 144, k, #.4, Bun 28, Creat 0.7, Calcium 7.8 , Ast 39, Alt 45, Alk Phos 187 Past Patient History - Infectious Disease Hx of Infectious Diseases: None - Tetanus Immunizations Tetanus Immunization: Unknown - Past Social History Smoking Status: Unknown If Ever Smoked - CARDIAC Hx Cardiac Disorders: Yes Hx Cardia Arrhythmia: Yes Hx Hypertension: Yes Hx Peripheral Edema: Yes (ble +1) - PULMONARY Hx Respiratory Disorders: No - NEUROLOGICAL Hx Neurological Disorder: Yes (ams) HX Cerebrovascular Accident: Yes (hemiplegia, aphasia) Other/Comment: syncopal episode 22 yrs ago, no verbal response - HEENT Hx HEENT Problems: Yes 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", right ear hearing loss - RENAL Hx Chronic Kidney Disease: No - ENDOCRINE/METABOLIC Hx Endocrine Disorders: No - HEMATOLOGICAL/ONCOLOGICAL Hx Blood Disorders: No Hx Cancer: (denies prostate ca) - INTEGUMENTARY Hx Dermatological Problems: Yes - MUSCULOSKELETAL/RHEUMATOLOGICAL Hx Falls: No - GASTROINTESTINAL Hx Gastrointestinal Disorders: Yes Other/Comment: esophagitis, gastritis, gas, uses stool softeners - GENITOURINARY/GYNECOLOGICAL Hx Genitourinary Disorders: Yes Hx Prostate Problems: Yes (denies ca, had prostate sx 2 months ago) Hx Urinary Tract Infection: Yes Other/Comment: dribbling since prostate sx when coughing or laughing - PSYCHIATRIC Hx Substance Use: No - SURGICAL HISTORY Hx Surgeries: Yes Other/Comment: left hip replacement 2000 - ANESTHESIA Hx Anesthesia: Yes Hx Anesthesia Reactions: No Hx Malignant Hyperthermia: No Meds Allergies/Adverse Reactions: Allergies Allergy/AdvReac Type Severity Reaction Status Date / Time No Known Allergies Allergy Verified 10/08/17 01:41 - Medications Medications: Current Medications Collagenase (Santyl) 0 gm TOP BID [facility] Last Admin: 04/23/18 10:46 Dose: 3 applic Desmopressin Acetate (Ddavp) 10 mcg NS BID [facility] Last Admin: 04/23/18 10:46 Dose: 10 mcg Enoxaparin Sodium (Lovenox) 40 mg SC DAILY [facility] PRN Reason: Protocol Last Admin: 04/21/18 09:53 Dose: 40 mg Ergocalciferol (Drisdol 50,000 Intl Units Cap) 1 cap PEG Q7D [facility] Last Admin: 04/20/18 10:44 Dose: Not Given Ferrous Gluconate (Fergon) 324 mg PO TID [facility] Last Admin: 04/23/18 10:26 Dose: Not Given Fluconazole (Diflucan) 100 mg PO DAILY [facility] PRN Reason: Protocol Stop: 04/30/18 10:01 Last Admin: 04/23/18 10:28 Dose: Not Given Meropenem (Merrem Iv 1 Gm Premix) 50 mls @ 100 mls/hr IVPB Q8 [facility] PRN Reason: Protocol Stop: 04/27/18 22:01 Last Admin: 04/23/18 05:59 Dose: 100 mls/hr Thiamine HCl 100 mg/ Sodium (Chloride) 51 mls @ 102 mls/hr IV DAILY [facility] Last Admin: 04/22/18 16:05 Dose: 102 mls/hr Linezolid (Zyvox 600mg/300ml D5w) 600 mg in 300 mls @ 200 mls/hr IVPB Q12 [facility] PRN Reason: Protocol Stop: 04/28/18 22:01 Last Admin: 04/22/18 21:20 Dose: 200 mls/hr Potassium Chloride (Potassium Chloride 10 Meq/100 Ml) 10 meq in 100 mls @ 50 mls/hr IVPB Q2H [facility] Stop: 04/23/18 13:59 Last Admin: 04/23/18 10:45 Dose: 50 mls/hr Amino Acids/Electrolytes/Dextrose (Clinimix 4.25/5 % "E" (2000 Ml)) 2,000 mls @ 83 mls/hr IV .Q24H [facility] Stop: 04/26/18 17:59 Fat Emulsion Intravenous (Intralipid 20%) 250 mls @ 21 mls/hr IV MWF@1800 [facility] Dextrose/Sodium Chloride (Dextrose 5%/0.45% Ns 1000 Ml) 1,000 mls @ 50 mls/hr IV .Q20H [facility] Insulin Human Regular (Humulin R Med) 0 units SC ACHS [facility] PRN Reason: Protocol Last Admin: 04/23/18 08:05 Dose: Not Given Multivitamins/Vitamin C (Multi-Delyn Liquid) 15 ml PEG 0800 [facility] Last Admin: 04/23/18 08:07 Dose: Not Given Mupirocin (Bactroban Ointment) 0 gm TOP BID [facility] Last Admin: 04/23/18 10:45 Dose: 1 applic Physical Exam - Constitutional Appears: Cachectic, Chronically Ill - Head Exam Head Exam: NORMOCEPHALIC - Neck Exam Neck exam: Positive for: Normal Inspection - Respiratory Exam Respiratory Exam: Decreased Breath Sounds, Rhonchi - Cardiovascular Exam Cardiovascular Exam: Irregular Rhythm, +S1, +S2 - GI/Abdominal Exam GI & Abdominal Exam: Diminished Bowel Sounds Additional comments: left abdominal wall red, swollen, disharge at PEG tube site - Extremities Exam Additional comments: ulcers both feet, diminished pulses - Back Exam Additional comments: decubiti both hips Results - Vital Signs Recent Vital Signs: Last Vital Signs Temp 97.7 F 04/23/18 06:00 Pulse 86 04/23/18 06:00 Resp 19 04/23/18 06:00 BP 120/78 04/23/18 06:00 Pulse Ox 93 L 04/23/18 06:00 - Labs Result Diagrams: 04/23/18 08:20 04/23/18 08:20 Labs: Laboratory Results - last 24 hr 0704/22/18 04/23/18 11:10 11:26 08:20 WBC 10.2 RBC 3.88 Hgb 10.7 L Hct 34.4 L MCV 88.7 MCH 27.6 MCHC 31.1 RDW 17.7 H Plt Count 255 MPV 10.2 Sodium Potassium Chloride Carbon Dioxide Anion Gap BUN Creatinine Est GFR ( Amer) Est GFR (Non-Af Amer) POC Glucose (mg/dL) 102 Random Glucose Calcium Total Bilirubin AST ALT Alkaline Phosphatase Total Protein Albumin Albumin (PEP) 1.6 L Globulin Albumin/Globulin Ratio Vppfz-7-Ausbdiqdr 0.5 H Hxwxp-8-Nxqwlpnhp 1.1 H Duwb-8-Egkcrzck 0.4 Rrlu-8-Snkjdgex 0.5 Gamma Globulins 1.7 Abnorm Protein Band 1 0.47 H Abnorm Protein Band 2 TEST NOT PERFORMED Abnorm Protein Band 3 TEST NOT PERFORMED STEVE & SPEP Interp See note Serum Immunofixation Detected H 04/23/18 08:20 WBC RBC Hgb Hct MCV MCH MCHC RDW Plt Count MPV Sodium 144 Potassium 3.4 L Chloride 114 H Carbon Dioxide 28 Anion Gap 5 L BUN 16 Creatinine 0.7 L Est GFR ( Amer) > 60 Est GFR (Non-Af Amer) > 60 POC Glucose (mg/dL) Random Glucose 103 Calcium 7.8 L Total Bilirubin 0.5 AST 39 ALT 75 H Alkaline Phosphatase 187 H Total Protein 6.2 Albumin 2.3 L Albumin (PEP) Globulin 3.9 Albumin/Globulin Ratio 0.6 L Rxdcw-9-Dpxofphot Xnlqb-8-Tdqqtnnag Vwtn-9-Gkfekhpe Haez-9-Jxyeqgex Gamma Globulins Abnorm Protein Band 1 Abnorm Protein Band 2 Abnorm Protein Band 3 STEVE & SPEP Interp Serum Immunofixation Assessment & Plan - Assessment and Plan (Free Text) Assessment: 87 year old male with history of CVA, HTN , and other multiple comorbidities( see PMH) who is admitted with cellulitis of abdominal wall and non functioning PEG. The patient is known to me from previous admission. His over all health severely declined since our meeting on 07/27/17. He is now non verbal, bed bound and dependent on others for all ADL's. He has multiple areas of skin break down on buttocks,hips, legs and feet. He is unable to take nutrition by mouth. The PEG tube is non functional. The PEG tube site is swollen and red. Wound cultures of the site indicate that he has MRSA, Proteus and Rain Albicans. Due to patient's severely compromised medical condition he is not a candidate for PEG replacement at this time. This patient meets criteria for hospice services due to progressive decline in status despite curative treatment. He has frequent hospitalizations and multiple infections. He is unable to receive nutrition via PEG or by mouth. TPN / PPN holds high risk for concomitant infection. He winces and grimaces when moved or repositioned. His palliative performance scale rating is 30% and the prognosis is poor. Case discussed with attending Dr Aries Mcleod and surgery, Dr Jodi Donato. Both are in agreement that hospice services should be initiated Voice message left for Ms. Butt, intent to discuss goals of care and possibly transitioning to hospice services. Plan: Goals of care and advance care planning Sepsis/ cellulitis: Id following , wound cultures positive for MRSA, Protues, Rain, on Zyvox and Merre Nutrition: Not a candidate for PEG replacement at this time , PPN? Wound care
--- NOTE | 2018-04-23 12:30 | CP.PCM.PN ---
<LesterArgelia - Last Filed: 04/23/18 12:27> Subjective - Date & Time of Evaluation Date of Evaluation: 04/23/18 Time of Evaluation: 12:27 - Subjective Subjective: 87 y/o male seen at bedside with attending Dr. Lewis for multiple bilateral ulcerations to lower extremities. Pt sleeping at time of visit. Palliative care has seen patient to evaluate for possible hospice. Pt in NAD at time of visit. Pt winces upon palpation of lower extremities. Per nursing, no acute events overnight. (-) F/C/N/V. Objective - Vital Signs/Intake and Output Vital Signs (last 24 hours): Temp Pulse Resp BP Pulse Ox 98.5 F 97 H 18 135/83 93 L 04/23/18 11:50 04/23/18 11:50 04/23/18 11:50 04/23/18 11:50 04/23/18 06:00 Intake and Output: 04/23/18 04/23/18 06:59 18:59 Intake Total 0 Balance 0 - Medications Medications: Current Medications Collagenase (Santyl) 0 gm TOP BID [facility] Last Admin: 04/23/18 10:46 Dose: 3 applic Desmopressin Acetate (Ddavp) 10 mcg NS BID [facility] Last Admin: 04/23/18 10:46 Dose: 10 mcg Enoxaparin Sodium (Lovenox) 40 mg SC DAILY [facility] PRN Reason: Protocol Last Admin: 04/21/18 09:53 Dose: 40 mg Ergocalciferol (Drisdol 50,000 Intl Units Cap) 1 cap PEG Q7D [facility] Last Admin: 04/20/18 10:44 Dose: Not Given Ferrous Gluconate (Fergon) 324 mg PO TID [facility] Last Admin: 04/23/18 10:26 Dose: Not Given Fluconazole (Diflucan) 100 mg PO DAILY [facility] PRN Reason: Protocol Stop: 04/30/18 10:01 Last Admin: 04/23/18 10:28 Dose: Not Given Meropenem (Merrem Iv 1 Gm Premix) 50 mls @ 100 mls/hr IVPB Q8 [facility] PRN Reason: Protocol Stop: 04/27/18 22:01 Last Admin: 04/23/18 05:59 Dose: 100 mls/hr Thiamine HCl 100 mg/ Sodium (Chloride) 51 mls @ 102 mls/hr IV DAILY [facility] Last Admin: 04/22/18 16:05 Dose: 102 mls/hr Linezolid (Zyvox 600mg/300ml D5w) 600 mg in 300 mls @ 200 mls/hr IVPB Q12 [facility] PRN Reason: Protocol Stop: 04/28/18 22:01 Last Admin: 04/22/18 21:20 Dose: 200 mls/hr Potassium Chloride (Potassium Chloride 10 Meq/100 Ml) 10 meq in 100 mls @ 50 mls/hr IVPB Q2H [facility] Stop: 04/23/18 13:59 Last Admin: 04/23/18 10:45 Dose: 50 mls/hr Amino Acids/Electrolytes/Dextrose (Clinimix 4.25/5 % "E" (2000 Ml)) 2,000 mls @ 83 mls/hr IV .Q24H [facility] Stop: 04/26/18 17:59 Fat Emulsion Intravenous (Intralipid 20%) 250 mls @ 21 mls/hr IV MWF@1800 [facility] Dextrose/Sodium Chloride (Dextrose 5%/0.45% Ns 1000 Ml) 1,000 mls @ 50 mls/hr IV .Q20H [facility] Insulin Human Regular (Humulin R Med) 0 units SC ACHS [facility] PRN Reason: Protocol Last Admin: 04/23/18 11:56 Dose: Not Given Multivitamins/Vitamin C (Multi-Delyn Liquid) 15 ml PEG 0800 [facility] Last Admin: 04/23/18 08:07 Dose: Not Given Mupirocin (Bactroban Ointment) 0 gm TOP BID [facility] Last Admin: 04/23/18 10:45 Dose: 1 applic - Labs Labs: 04/23/18 08:20 04/23/18 08:20 PT 16.0 SECONDS (9.4-12.5) H 04/18/18 11:50 INR 1.38 (0.93-1.08) H 04/18/18 11:50 APTT 32.4 Seconds (25.1-36.5) 04/18/18 11:50 - Constitutional Appears: Well, Non-toxic, No Acute Distress - Extremities Exam Additional comments: Bilateral lower extremity multiple ulcerations with dressings clean, dry and intact Multipodus boots in place No strikethrough on bandages Pt rigidly contracted to B/L lower extremities - Neurological Exam Neurological Exam: Alert - Psychiatric Exam Psychiatric exam: Normal Affect, Normal Mood Assessment and Plan - Assessment and Plan (Free Text) Assessment: 87 y/o male with multiple bilateral lower extremity ankle and foot ulcerations secondary to bed bound status/pressure Plan: Pt seen and evaluated with attending Dr. Lewis Pt is afebrile, WBC 10.2 Wound culture pending R foot Dressings left clean/dry/intact at this time Recommend turning of pt q2h Multipodus boots to remain in place Recommend right AKA vs. hospice Will continue to follow while in house and perform local wound care <Petey Lewis - Last Filed: 04/26/18 11:19> Objective - Vital Signs/Intake and Output Vital Signs (last 24 hours): Temp Pulse Resp BP Pulse Ox 97.8 F 98 H 22 128/70 95 04/25/18 14:00 04/25/18 14:00 04/25/18 14:00 04/25/18 14:00 04/25/18 14:00 - Labs Labs: 04/25/18 08:24 04/25/18 08:24 PT 16.0 SECONDS (9.4-12.5) H 04/18/18 11:50 INR 1.38 (0.93-1.08) H 04/18/18 11:50 APTT 32.4 Seconds (25.1-36.5) 04/18/18 11:50 Attending/Attestation - Attestation I have personally seen and examined this patient.: Yes I have fully participated in the care of the patient.: Yes I have reviewed all pertinent clinical information, including history, physical exam and plan: Yes
--- NOTE | 2018-04-23 12:36 | CP.PCM.PN ---
Subjective - Date & Time of Evaluation Date of Evaluation: 04/23/18 Time of Evaluation: 12:35 - Subjective Subjective: Nephrology Consultation Note: Assessment: Stable Hypernatremia with very low urine SG (dilute urine) favors Diabetes insipidus and likely superimposed limited fluid intake due to PEG tube dysfunction leading to dehydration and hypovolemia metabolic alkalosis with respi compensation SVT Anemia Abnormal LFT cellulitis around PEG tube hypertension, hyperlipidemia, CVA with residual deficit, aphasia, visual loss, non communicative, retirement NH resident Plan maintain hemodynamics stable. Patient not on ACEI/ARB due to low BP. Monitor Input/Output, daily weights and electrolytes IVF as D5 0.45% saline @ 50 ml/hr while on TPN started thiamine and MVI supplementation started DDAVP NS 10 mcg bid for diabetes insipidus PRBC as needed started iron and vit D supplements agree with palliative care. pt being planned for hospice Dose meds/antibiotics for normal GFR. Glycemic control, aspiration/fall precautions Further work up/management as per primary team Thanks for allowing me to participate in care of your patient. 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 episodes of SVT. PEG tube leakage reported to be better Physical Examination: General Appearance: Comfortable, in no acute respiratory distress, elderly male , contracted extremities, ill appearing Vitals reviewed and noted as below Head; Atraumatic, normocephalic ENT: unable EYES: unable Neck; supple no lymphadenopathy, no thyromegaly or bruit Lungs: Normal respiratory rate/effort. Breath sounds bilateral equal and clear anteriorly except some rales Rt side Heart: Normal rate. s1s2 normal. No rub or gallop. Extremities: no edema. No varicose veins. both feets dressed, has wounds Neurological: Patient is non communicative unresponsive with contractures Skin: Warm and dry. Normal turgor. No rash. Palpitation: Normal elasticity for age Abdomen: limited due to his position and abdominal binder Psych: unable MSK: no joint tenderness or swelling. : unable Labs/imaging reviewed. Past medical history, past surgical history, family history, social history, allergy reviewed and noted as below Family hx: unable Work up: UA SG <1.005 Objective - Vital Signs/Intake and Output Vital Signs (last 24 hours): Temp Pulse Resp BP Pulse Ox 98.5 F 97 H 18 135/83 93 L 04/23/18 11:50 04/23/18 11:50 04/23/18 11:50 04/23/18 11:50 04/23/18 06:00 Intake and Output: 04/23/18 04/23/18 06:59 18:59 Intake Total 0 Balance 0 - Medications Medications: Current Medications Collagenase (Santyl) 0 gm TOP BID [facility] Last Admin: 04/23/18 10:46 Dose: 3 applic Desmopressin Acetate (Ddavp) 10 mcg NS BID [facility] Last Admin: 04/23/18 10:46 Dose: 10 mcg Enoxaparin Sodium (Lovenox) 40 mg SC DAILY [facility] PRN Reason: Protocol Last Admin: 04/21/18 09:53 Dose: 40 mg Ergocalciferol (Drisdol 50,000 Intl Units Cap) 1 cap PEG Q7D [facility] Last Admin: 04/20/18 10:44 Dose: Not Given Ferrous Gluconate (Fergon) 324 mg PO TID [facility] Last Admin: 04/23/18 10:26 Dose: Not Given Fluconazole (Diflucan) 100 mg PO DAILY [facility] PRN Reason: Protocol Stop: 04/30/18 10:01 Last Admin: 04/23/18 10:28 Dose: Not Given Meropenem (Merrem Iv 1 Gm Premix) 50 mls @ 100 mls/hr IVPB Q8 [facility] PRN Reason: Protocol Stop: 04/27/18 22:01 Last Admin: 04/23/18 05:59 Dose: 100 mls/hr Thiamine HCl 100 mg/ Sodium (Chloride) 51 mls @ 102 mls/hr IV DAILY [facility] Last Admin: 04/22/18 16:05 Dose: 102 mls/hr Linezolid (Zyvox 600mg/300ml D5w) 600 mg in 300 mls @ 200 mls/hr IVPB Q12 [facility] PRN Reason: Protocol Stop: 04/28/18 22:01 Last Admin: 04/22/18 21:20 Dose: 200 mls/hr Potassium Chloride (Potassium Chloride 10 Meq/100 Ml) 10 meq in 100 mls @ 50 mls/hr IVPB Q2H [facility] Stop: 04/23/18 13:59 Last Admin: 04/23/18 10:45 Dose: 50 mls/hr Amino Acids/Electrolytes/Dextrose (Clinimix 4.25/5 % "E" (2000 Ml)) 2,000 mls @ 83 mls/hr IV .Q24H [facility] Stop: 04/26/18 17:59 Fat Emulsion Intravenous (Intralipid 20%) 250 mls @ 21 mls/hr IV MWF@1800 [facility] Dextrose/Sodium Chloride (Dextrose 5%/0.45% Ns 1000 Ml) 1,000 mls @ 50 mls/hr IV .Q20H [facility] Insulin Human Regular (Humulin R Med) 0 units SC ACHS [facility] PRN Reason: Protocol Last Admin: 04/23/18 11:56 Dose: Not Given Multivitamins/Vitamin C (Multi-Delyn Liquid) 15 ml PEG 0800 [facility] Last Admin: 04/23/18 08:07 Dose: Not Given Mupirocin (Bactroban Ointment) 0 gm TOP BID [facility] Last Admin: 04/23/18 10:45 Dose: 1 applic - Labs Labs: 04/23/18 08:20 04/23/18 08:20 PT 16.0 SECONDS (9.4-12.5) H 04/18/18 11:50 INR 1.38 (0.93-1.08) H 04/18/18 11:50 APTT 32.4 Seconds (25.1-36.5) 04/18/18 11:50
[2018-04-23] MEDS: Linezolid 600 mg in D5W 300 ml 600 MG/300 ML BAG IVPB SCH ×2 (15:50→21:43)
[2018-04-23] MEDS: Thiamine 100 MG in Sodium Chloride 0.9% 50 ML IV SCH (19:06)
[2018-04-24] MEDS: Meropenem IV 1 gm in NS 50 ML IVPB SCH ×3 (05:26→22:12)
[2018-04-24 06:42] LABS: BASO # 0.01 K/mm3 (0.0-2.0); BASO % 0.1 % (0.0-3.0); EOS # 0.4 (0.0-0.7); EOS % 3.9 % (1.5-5.0); GRAN # 8.23 (1.4-6.5); GRAN % 79.8 % (50.0-68.0); HEMOGLOBIN 10.2 g/dL (14.0-18.0); LYMPH # 0.9 (1.2-3.4); MEAN CELL VOLUME 90.2 fl (80.0-105.0); MEAN CORPUSCULAR HEMOGLOBIN 27.1 pg (25.0-35.0); MEAN CORPUSCULAR HGB CONC 30.1 g/dl (31.0-37.0); MEAN PLATELET VOLUME 10.4 fl (7.0-11.0); MONO # 0.7 (0.1-0.6); MONO % 7.2 % (1.0-6.0); RBC 3.76 10^6/uL (3.5-6.1); WHITE BLOOD COUNT 10.3 10^3/ul (4.5-11.0)
[2018-04-24 07:10] LABS: ALB/GLOB RATIO 0.6 (1.1-1.8); ALT/SGPT 61 U/L (7-56); AST/SGOT 30 U/L (17-59); BLOOD UREA NITROGEN 17 mg/dL (7-21); CALCIUM 7.9 mg/dL (8.4-10.5); GFR AFRICAN-AMERICAN > 60; GFR NON-AFRICAN AMERICAN > 60
--- NOTE | 2018-04-24 09:05 | PN ---
DATE: 04/24/2018 PULMONARY PROGRESS NOTE SUBJECTIVE: The patient was seen and examined at bedside. He has no signs of respiratory distress. Actually, he is comfortable. PHYSICAL EXAMINATION: VITAL SIGNS: His temperature is 98, pulse 71, respirations 20, pulse oximetry is 96 on room air. HEENT: Examination of head normocephalic and atraumatic. NECK: Supple with no jugular vein distentions. CARDIOVASCULAR: S1, S2. No S3. Irregular. PULMONARY: Diminished breath sounds at both bases with few scattered rhonchi. No wheezing. GASTROINTESTINAL: Soft, nontender. No organomegaly. EXTREMITIES: 1+ pedal edema. No cyanosis. SKIN: No acute skin rashes. NEUROLOGIC: Deferred at the present time. LABORATORY DATA: Additional data reviewed. Blood work form this morning, WBC 10.3, hemoglobin of 10.2. His total protein is 5.4, albumin is low at 2. The rest of the chemistries are within normal range. ASSESSMENT: 1. Chronic obstructive pulmonary disease, which is improving. 2. Status post sepsis. 3. Left lower lobe infiltrates. 4. Percutaneous endoscopic gastrostomy infection. Followup chest x-ray still has some infiltrative changes at both lower lobes. The patient is on good antibiotic coverage. He is afebrile. The x-ray findings could be more atelectasis and accumulation of secretions than actual active pneumonic infiltrates. I will continue with current therapeutic intervention and follow closely. Kodi Garsia MD
--- NOTE | 2018-04-24 09:11 | RAD ---
Date of service: 04/24/2018 HISTORY: congestion COMPARISON: 04/22/2018 FINDINGS: LUNGS: No active pulmonary disease. PLEURA: No significant pleural effusion identified, no pneumothorax apparent. CARDIOVASCULAR: Moderate cardiomegaly. Mild vascular congestion OSSEOUS STRUCTURES: No significant abnormalities. VISUALIZED UPPER ABDOMEN: Normal. OTHER FINDINGS: None. IMPRESSION: Moderate cardiomegaly and mild vascular congestion
--- NOTE | 2018-04-24 09:42 | PN ---
DATE: 04/24/2018 SUBJECTIVE: I saw him in bed at [facility] in room 263. He is nonverbal, his eyes are open, that is his baseline. He is contracted. He has a nonfunctioning PEG tube site with oozing and bleeding and infection. PHYSICAL EXAMINATION: VITAL SIGNS: He has a 98.1 temperature, 71 pulse, 124/61 blood pressure, 20 respiratory rate, 96% O2 saturation on 2 L nasal cannula. HEENT: His head is atraumatic, normocephalic. HEART: Regular rate. LUNGS: Decreased breath sounds. He actually has some congestion today. I am going to order some DuoNebs and a chest x-ray. ABDOMEN: He has got a PEG tube site with oozing. It is infected. EXTREMITIES: Contracted. He has got heel ulcers. He probably could do bypass surgery versus above-knee amputation, but the vascular doctor chose not to do it on him due to his mental status and his bedridden status. He is now at a point where he needs to be on hospice. MEDICATIONS: He is currently on Bactroban, PPN, DDAVP, Diflucan, Drisdol, Fergon, insulin coverage, , Lovenox, Merrem IV, vitamins; if possible Santyl, thiamine, Zyvox. LABORATORY DATA: He has a 10.3 white count, 10.2 hemoglobin, 33.9 hematocrit with 247 platelets. Sodium 147, p 3.8, BUN 17, creatinine 0.6, GFR is greater than 60, sugar is 106, calcium 7.9, total bili is 0.4, AST is 30, ALT is 61, alkaline phosphatase 166, total protein 5.4. ASSESSMENT AND PLAN: He is failing. He has failure to thrive. He has extremely grave prognosis. He is growing gram-negative rods, Proteus mirabilis from the wound source. I am hoping after talking with Aurora Lowe, the Palliative Care nurse, we can get him to hospice back at [facility]. We will keep him as comfortable and pain free as possible and hopefully, we can get that work done in the next 24 hours. Yuri Mcleod DO [facility] # [id number] MTDD
--- NOTE | 2018-04-24 10:16 | CP.PCM.PN ---
Subjective - Date & Time of Evaluation Date of Evaluation: 04/24/18 Time of Evaluation: 08:45 - Subjective Subjective: No new events, no fevers, no diarrhea. Objective - Vital Signs/Intake and Output Vital Signs (last 24 hours): Temp Pulse Resp BP Pulse Ox 98.1 F 71 20 124/61 96 04/24/18 06:00 04/24/18 05:57 04/24/18 05:57 04/24/18 05:57 04/24/18 05:57 Intake and Output: 04/24/18 04/24/18 06:59 18:59 Intake Total 2225 Balance 2225 - Medications Medications: Current Medications Albuterol/Ipratropium (Duoneb 3 Mg/0.5 Mg (3 Ml) Ud) 3 ml IH [id number] [facility] Collagenase (Santyl) 0 gm TOP BID [facility] Last Admin: 04/23/18 17:22 Dose: 3 applic Desmopressin Acetate (Ddavp) 10 mcg NS BID [facility] Last Admin: 04/23/18 17:22 Dose: 10 mcg Enoxaparin Sodium (Lovenox) 40 mg SC DAILY [facility] PRN Reason: Protocol Last Admin: 04/21/18 09:53 Dose: 40 mg Ergocalciferol (Drisdol 50,000 Intl Units Cap) 1 cap PEG Q7D [facility] Last Admin: 04/20/18 10:44 Dose: Not Given Ferrous Gluconate (Fergon) 324 mg PO TID [facility] Last Admin: 04/23/18 18:12 Dose: Not Given Fluconazole (Diflucan) 100 mg PO DAILY [facility] PRN Reason: Protocol Stop: 04/30/18 10:01 Last Admin: 04/23/18 10:28 Dose: Not Given Meropenem (Merrem Iv 1 Gm Premix) 50 mls @ 100 mls/hr IVPB Q8 [facility] PRN Reason: Protocol Stop: 04/27/18 22:01 Last Admin: 04/24/18 05:26 Dose: 100 mls/hr Thiamine HCl 100 mg/ Sodium (Chloride) 51 mls @ 102 mls/hr IV DAILY [facility] Last Admin: 04/23/18 19:06 Dose: 102 mls/hr Linezolid (Zyvox 600mg/300ml D5w) 600 mg in 300 mls @ 200 mls/hr IVPB Q12 [facility] PRN Reason: Protocol Stop: 04/28/18 22:01 Last Admin: 04/23/18 21:43 Dose: 200 mls/hr Amino Acids/Electrolytes/Dextrose (Clinimix 4.25/5 % "E" (2000 Ml)) 2,000 mls @ 83 mls/hr IV .Q24H [facility] Stop: 04/26/18 17:59 Last Admin: 04/23/18 21:43 Dose: 83 mls/hr Fat Emulsion Intravenous (Intralipid 20%) 250 mls @ 21 mls/hr IV MWF@1800 [facility] Insulin Human Regular (Humulin R Med) 0 units SC ACHS [facility] PRN Reason: Protocol Last Admin: 04/23/18 22:00 Dose: Not Given Multivitamins/Vitamin C (Multi-Delyn Liquid) 15 ml PEG 0800 [facility] Last Admin: 04/23/18 08:07 Dose: Not Given Mupirocin (Bactroban Ointment) 0 gm TOP BID [facility] Last Admin: 04/23/18 17:22 Dose: 1 applic - Labs Labs: 04/24/18 06:00 04/24/18 06:00 PT 16.0 SECONDS (9.4-12.5) H 04/18/18 11:50 INR 1.38 (0.93-1.08) H 04/18/18 11:50 APTT 32.4 Seconds (25.1-36.5) 04/18/18 11:50 - Constitutional Appears: Chronically Ill - Head Exam Head Exam: NORMAL INSPECTION - Respiratory Exam Respiratory Exam: Decreased Breath Sounds - Cardiovascular Exam Cardiovascular Exam: +S1, +S2 - GI/Abdominal Exam GI & Abdominal Exam: Soft. absent: Tenderness Additional comments: dressings in place Assessment and Plan - Assessment and Plan (Free Text) Plan: Assessment severe sepsis with PEG tube site cellulitis, growing MRSA and Proteus multiple lower extremity ulcers, non-infected history of bilateral lower extremity cellulitis, growing MSSA, Serratia and Klebsiella history of cardiac arrhythmia and syncope history of prostate infection S/P prostate surgery gastritis and duodenitis Plan continue Zyvox, Merrem and Diflucan day 6 to complete 7-10 days of therapy will continue to follow clinically discussed with Dr. Mcleod previously - planning to see if patient can be put on hospice overall prognosis is poor
[2018-04-24] MEDS: Albuterol-Ipratrop 3 mg / 0.5 (3 ml) UD IH SCH ×3 (10:30→19:20)
[2018-04-24] MEDS: Multi Vitamins 15 mL UD Oral Solution PEG SCH (10:43)
[2018-04-24] MEDS: Insulin Reg-MEDIUM-Coverage SC SCH ×4 (10:43→22:17)
[2018-04-24] MEDS: Linezolid 600 mg in D5W 300 ml 600 MG/300 ML BAG IVPB SCH ×2 (11:52→21:04)
[2018-04-24] MEDS: Thiamine 100 MG in Sodium Chloride 0.9% 50 ML IV SCH (11:52)
[2018-04-24] MEDS: Desmopressin Nasal 10 mcg/Spray (5 ml) NS SCH ×2 (11:54→18:17)
[2018-04-24] MEDS: Collagenase 250 Units/gm Ointment(30 gm) TOP SCH ×2 (11:54→18:16)
[2018-04-24] MEDS: Mupirocin 2% Ointment 15 GM TUBE TOP SCH ×2 (11:55→18:18)
--- NOTE | 2018-04-24 12:13 | CP.PCM.PN ---
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 Patient not on ACEI/ARB due to low BP. Monitor Input/Output, daily weights and electrolytes free water supplementation started thiamine and MVI supplementation started DDAVP NS 10 mcg bid for diabetes insipidus PRBC as needed started iron and vit D supplements agree with palliative care. pt being planned for hospice Dose meds/antibiotics for normal GFR. Glycemic control, aspiration/fall precautions Further work up/management as per primary team Thanks for allowing me to participate in care of your patient. Please call if any Qs Dr Carter Juarez Office: [phone] Chief Complaint; Unable to obtain reason for consult: Hypernatremia HPI: Pt is a 87 M with hx of hypertension, hyperlipidemia, CVA with residual deficit, aphasia, visual loss, non communicative, [facility] NH resident, recent hospitalized for infection around PEG tube came with drainage around peg tube renal consult for hypernatremia pt unable to provide any hx ROS: unable to obtain. episodes of SVT. PEG tube leakage reported to be better Physical Examination: General Appearance: Comfortable, in no acute respiratory distress, elderly male , contracted extremities, ill appearing Vitals reviewed and noted as below Head; Atraumatic, normocephalic ENT: unable EYES: unable Neck; supple no lymphadenopathy, no thyromegaly or bruit Lungs: Normal respiratory rate/effort. Breath sounds bilateral equal and clear anteriorly except some rales Rt side Heart: Normal rate. s1s2 normal. No rub or gallop. Extremities: no edema. No varicose veins. both feets dressed, has wounds Neurological: Patient is non communicative unresponsive with contractures Skin: Warm and dry. Normal turgor. No rash. Palpitation: Normal elasticity for age Abdomen: limited due to his position and abdominal binder Psych: unable MSK: no joint tenderness or swelling. : unable Labs/imaging reviewed. Past medical history, past surgical history, family history, social history, allergy reviewed and noted as below Family hx: unable Work up: UA SG <1.005 Objective - Vital Signs/Intake and Output Vital Signs (last 24 hours): Temp Pulse Resp BP Pulse Ox 98.1 F 71 20 124/61 96 04/24/18 06:00 04/24/18 05:57 04/24/18 05:57 04/24/18 05:57 04/24/18 05:57 Intake and Output: 04/24/18 04/24/18 06:59 18:59 Intake Total 2225 Balance 2225 - Medications Medications: Current Medications Albuterol/Ipratropium (Duoneb 3 Mg/0.5 Mg (3 Ml) Ud) 3 ml IH [id number] [facility] Last Admin: 04/24/18 10:30 Dose: 3 ml Collagenase (Santyl) 0 gm TOP BID [facility] Last Admin: 04/24/18 11:54 Dose: 1 applic Desmopressin Acetate (Ddavp) 10 mcg NS BID [facility] Last Admin: 04/24/18 11:54 Dose: 10 mcg Enoxaparin Sodium (Lovenox) 40 mg SC DAILY [facility] PRN Reason: Protocol Last Admin: 04/21/18 09:53 Dose: 40 mg Ergocalciferol (Drisdol 50,000 Intl Units Cap) 1 cap PEG Q7D [facility] Last Admin: 04/20/18 10:44 Dose: Not Given Ferrous Gluconate (Fergon) 324 mg PO TID [facility] Last Admin: 04/24/18 10:44 Dose: Not Given Fluconazole (Diflucan) 100 mg PO DAILY [facility] PRN Reason: Protocol Stop: 04/30/18 10:01 Last Admin: 04/24/18 10:44 Dose: Not Given Meropenem (Merrem Iv 1 Gm Premix) 50 mls @ 100 mls/hr IVPB Q8 [facility] PRN Reason: Protocol Stop: 04/27/18 22:01 Last Admin: 04/24/18 05:26 Dose: 100 mls/hr Thiamine HCl 100 mg/ Sodium (Chloride) 51 mls @ 102 mls/hr IV DAILY [facility] Last Admin: 04/24/18 11:52 Dose: 102 mls/hr Linezolid (Zyvox 600mg/300ml D5w) 600 mg in 300 mls @ 200 mls/hr IVPB Q12 [facility] PRN Reason: Protocol Stop: 04/28/18 22:01 Last Admin: 04/24/18 11:52 Dose: 200 mls/hr Amino Acids/Electrolytes/Dextrose (Clinimix 4.25/5 % "E" (2000 Ml)) 2,000 mls @ 83 mls/hr IV .Q24H [facility] Stop: 04/26/18 17:59 Last Admin: 04/23/18 21:43 Dose: 83 mls/hr Fat Emulsion Intravenous (Intralipid 20%) 250 mls @ 21 mls/hr IV MWF@1800 [facility] Insulin Human Regular (Humulin R Med) 0 units SC ACHS [facility] PRN Reason: Protocol Last Admin: 04/24/18 11:44 Dose: Not Given Multivitamins/Vitamin C (Multi-Delyn Liquid) 15 ml PEG 0800 [facility] Last Admin: 04/24/18 10:43 Dose: Not Given Mupirocin (Bactroban Ointment) 0 gm TOP BID [facility] Last Admin: 04/24/18 11:55 Dose: 1 applic - Labs Labs: 04/24/18 06:00 04/24/18 06:00 PT 16.0 SECONDS (9.4-12.5) H 04/18/18 11:50 INR 1.38 (0.93-1.08) H 04/18/18 11:50 APTT 32.4 Seconds (25.1-36.5) 04/18/18 11:50
--- NOTE | 2018-04-24 13:48 | PN ---
DATE: 04/24/2018 CARDIOLOGY FOLLOWUP SUBJECTIVE: The patient remains nonverbal, but in no distress. PHYSICAL EXAMINATION: VITAL SIGNS: Blood pressure is 125/73, the heart rates in the 80s. No recurrent SVT. NECK: Negative JVD. LUNGS: Without rales. HEART: Reveals S1, S2. EXTREMITIES: Without edema. LABORATORY DATA: Hemoglobin is 10.2. Chemistries: BUN and creatinine are unremarkable. IMPRESSION: 1. No recurrence of his supraventricular tachycardia. 2. History of cerebrovascular accidents in the past. 3. Failure to thrive. 4. Sepsis. PLAN: Given these findings, we will continue HIS digoxin for better heart rate control. Joe Garcia MD
[2018-04-24] MEDS ORDERED: Fat Emulsion 20% IV 250 ML IV SCH (18:00)
[2018-04-25] MEDS: Albuterol-Ipratrop 3 mg / 0.5 (3 ml) UD IH SCH ×5 (01:07→15:54)
[2018-04-25] MEDS: Meropenem IV 1 gm in NS 50 ML IVPB SCH ×2 (05:37→14:31)
[2018-04-25] MEDS: Insulin Reg-MEDIUM-Coverage SC SCH ×3 (07:47→15:48)
[2018-04-25 08:39] LABS: HEMOGLOBIN 9.8 g/dL (14.0-18.0); MEAN CELL VOLUME 89.3 fl (80.0-105.0); MEAN CORPUSCULAR HEMOGLOBIN 26.8 pg (25.0-35.0); MEAN CORPUSCULAR HGB CONC 30.1 g/dl (31.0-37.0); MEAN PLATELET VOLUME 10.4 fl (7.0-11.0); RBC 3.65 10^6/uL (3.5-6.1); RED CELL DISTRIBUTION WIDTH 18.2 % (11.5-14.5); WHITE BLOOD COUNT 10.9 10^3/ul (4.5-11.0)
[2018-04-25 08:44] LABS: ALB/GLOB RATIO 0.6 (1.1-1.8); ALBUMIN 2.1 g/dL (3.0-4.8); ALT/SGPT 42 U/L (7-56); AST/SGOT 27 U/L (17-59); BLOOD UREA NITROGEN 22 mg/dL (7-21); CALCIUM 7.5 mg/dL (8.4-10.5); GFR AFRICAN-AMERICAN > 60; GFR NON-AFRICAN AMERICAN > 60
[2018-04-25] MEDS: Thiamine 100 MG in Sodium Chloride 0.9% 50 ML IV SCH (10:15)
[2018-04-25] MEDS: Desmopressin Nasal 10 mcg/Spray (5 ml) NS SCH ×2 (10:16→17:34)
[2018-04-25] MEDS: Linezolid 600 mg in D5W 300 ml 600 MG/300 ML BAG IVPB SCH (10:16)
[2018-04-25] MEDS: Multi Vitamins 15 mL UD Oral Solution PEG SCH (10:17)
[2018-04-25] MEDS: Collagenase 250 Units/gm Ointment(30 gm) TOP SCH ×2 (10:17→17:34)
[2018-04-25] MEDS: Mupirocin 2% Ointment 15 GM TUBE TOP SCH ×2 (10:17→17:32)
--- NOTE | 2018-04-25 10:35 | CP.PCM.PN ---
Subjective - Date & Time of Evaluation Date of Evaluation: 04/25/18 Time of Evaluation: 10:34 - Subjective Subjective: Nephrology Consultation Note: Assessment: Stable Hypernatremia with very low urine SG (dilute urine) favors Diabetes insipidus and likely superimposed limited fluid intake due to PEG tube dysfunction leading to dehydration and hypovolemia metabolic alkalosis with respi compensation SVT Anemia Abnormal LFT cellulitis around PEG tube hypertension, hyperlipidemia, CVA with residual deficit, aphasia, visual loss, non communicative, nursing home [place] resident Plan maintain hemodynamics stable. Patient not on ACEI/ARB due to low BP. Monitor Input/Output, daily weights and electrolytes free water supplementation started thiamine and MVI supplementation continue with DDAVP NS 10 mcg bid for diabetes insipidus. Serum Na better now PRBC as needed started iron and vit D supplements agree with palliative care. pt being planned for hospice asked RN to check temp and/or provide bedside cooling fan Dose meds/antibiotics for normal GFR. Glycemic control, aspiration/fall precautions Further work up/management as per primary team Thanks for allowing me to participate in care of your patient. 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 episodes of SVT. PEG tube leakage reported to be better Physical Examination: sweating today General Appearance: Comfortable, in no acute respiratory distress, elderly male , contracted extremities, ill appearing Vitals reviewed and noted as below Head; Atraumatic, normocephalic ENT: unable EYES: unable Neck; supple no lymphadenopathy, no thyromegaly or bruit Lungs: Normal respiratory rate/effort. Breath sounds bilateral equal and clear anteriorly except some rales Rt side Heart: Normal rate. s1s2 normal. No rub or gallop. Extremities: no edema. No varicose veins. both feets dressed, has wounds Neurological: Patient is non communicative unresponsive with contractures Skin: Warm and dry. Normal turgor. No rash. Palpitation: Normal elasticity for age Abdomen: limited due to his position and abdominal binder Psych: unable MSK: no joint tenderness or swelling. : unable Labs/imaging reviewed. Past medical history, past surgical history, family history, social history, allergy reviewed and noted as below Family hx: unable Work up: UA SG <1.005 Objective - Vital Signs/Intake and Output Vital Signs (last 24 hours): Temp Pulse Resp BP Pulse Ox 97.4 F L 100 H 22 105/46 L 96 04/25/18 06:00 04/25/18 06:00 04/25/18 06:00 04/25/18 06:00 04/25/18 06:00 - Medications Medications: Current Medications Albuterol/Ipratropium (Duoneb 3 Mg/0.5 Mg (3 Ml) Ud) 3 ml IH [id number] [facility] Last Admin: 04/25/18 07:18 Dose: 3 ml Collagenase (Santyl) 0 gm TOP BID [facility] Last Admin: 04/25/18 10:17 Dose: 1 applic Desmopressin Acetate (Ddavp) 10 mcg NS BID [facility] Last Admin: 04/25/18 10:16 Dose: 10 mcg Enoxaparin Sodium (Lovenox) 40 mg SC DAILY [facility] PRN Reason: Protocol Last Admin: 04/21/18 09:53 Dose: 40 mg Ergocalciferol (Drisdol 50,000 Intl Units Cap) 1 cap PEG Q7D [facility] Last Admin: 04/20/18 10:44 Dose: Not Given Ferrous Gluconate (Fergon) 324 mg PO TID [facility] Last Admin: 04/25/18 10:16 Dose: Not Given Fluconazole (Diflucan) 100 mg PO DAILY [facility] PRN Reason: Protocol Stop: 04/30/18 10:01 Last Admin: 04/25/18 10:16 Dose: Not Given Meropenem (Merrem Iv 1 Gm Premix) 50 mls @ 100 mls/hr IVPB Q8 [facility] PRN Reason: Protocol Stop: 04/27/18 22:01 Last Admin: 04/25/18 05:37 Dose: 100 mls/hr Thiamine HCl 100 mg/ Sodium (Chloride) 51 mls @ 102 mls/hr IV DAILY [facility] Last Admin: 04/25/18 10:15 Dose: 102 mls/hr Linezolid (Zyvox 600mg/300ml D5w) 600 mg in 300 mls @ 200 mls/hr IVPB Q12 [facility] PRN Reason: Protocol Stop: 04/28/18 22:01 Last Admin: 04/25/18 10:16 Dose: 200 mls/hr Amino Acids/Electrolytes/Dextrose (Clinimix 4.25/5 % "E" (2000 Ml)) 2,000 mls @ 83 mls/hr IV .Q24H [facility] Stop: 04/26/18 17:59 Last Admin: 04/24/18 18:15 Dose: 83 mls/hr Fat Emulsion Intravenous (Intralipid 20%) 250 mls @ 21 mls/hr IV MWF@1800 [facility] Last Admin: 04/24/18 18:15 Dose: 21 mls/hr Insulin Human Regular (Humulin R Med) 0 units SC ACHS [facility] PRN Reason: Protocol Last Admin: 04/25/18 07:47 Dose: Not Given Multivitamins/Vitamin C (Multi-Delyn Liquid) 15 ml PEG 0800 [facility] Last Admin: 04/25/18 10:17 Dose: Not Given Mupirocin (Bactroban Ointment) 0 gm TOP BID [facility] Last Admin: 04/25/18 10:17 Dose: 1 applic - Labs Labs: 04/25/18 08:24 04/25/18 08:24 PT 16.0 SECONDS (9.4-12.5) H 04/18/18 11:50 INR 1.38 (0.93-1.08) H 04/18/18 11:50 APTT 32.4 Seconds (25.1-36.5) 04/18/18 11:50
--- NOTE | 2018-04-25 12:46 | PN ---
DATE: 04/25/2018 PULMONARY PROGRESS NOTE SUBJECTIVE: The patient remains unresponsive in bed in no acute respiratory distress, does not appear dyspneic. He is comfortable. PHYSICAL EXAMINATION: VITAL SIGNS: Stable. Afebrile. Respiratory rate 18, pulse 80, pulse ox 96%. HEENT: Normocephalic. NECK: Supple. No JVD. CARDIOVASCULAR: Irregular rhythm. No gallop. CHEST: Global decrease in breath sounds. Minimal rhonchi. No wheezing. ABDOMEN: Soft. Bowel sounds normoactive without organomegaly. EXTREMITIES: Reveal no clubbing, cyanosis. Edema seems to have resolved. SKIN: No rash or excoriation. NEUROLOGIC: Evaluation as previous, no change noted. LABORATORY DATA: Followup chest x-ray done yesterday shows resolution of the previous left lower lobe pneumonia. ASSESSMENT: 1. Chronic obstructive pulmonary disease - stable. 2. Status post sepsis and left lower lobe pneumonia. 3. Abnormal mental status. PLAN: Continue vigorous bronchodilator therapy. Complete course of antibiotics per Infectious Disease. We will be happy to follow this patient in the future as required. Thank you for the opportunity to see him. If there is any further pulmonary changes required, please feel free to contact us. Thank you for allowing us to participate in the care of this patient. Hector Negron MD
--- NOTE | 2018-04-25 13:01 | CP.PCM.PN ---
Subjective - Date & Time of Evaluation Date of Evaluation: 04/25/18 Time of Evaluation: 09:45 - Subjective Subjective: No fevers, no vomiting, no diarrhea. Objective - Vital Signs/Intake and Output Vital Signs (last 24 hours): Temp Pulse Resp BP Pulse Ox 97.4 F L 100 H 22 105/46 L 96 04/25/18 06:00 04/25/18 06:00 04/25/18 06:00 04/25/18 06:00 04/25/18 06:00 - Medications Medications: Current Medications Albuterol/Ipratropium (Duoneb 3 Mg/0.5 Mg (3 Ml) Ud) 3 ml IH [id number] [facility] Last Admin: 04/25/18 07:18 Dose: 3 ml Collagenase (Santyl) 0 gm TOP BID [facility] Last Admin: 04/24/18 18:16 Dose: 1 applic Desmopressin Acetate (Ddavp) 10 mcg NS BID [facility] Last Admin: 04/24/18 18:17 Dose: 10 mcg Enoxaparin Sodium (Lovenox) 40 mg SC DAILY [facility] PRN Reason: Protocol Last Admin: 04/21/18 09:53 Dose: 40 mg Ergocalciferol (Drisdol 50,000 Intl Units Cap) 1 cap PEG Q7D [facility] Last Admin: 04/20/18 10:44 Dose: Not Given Ferrous Gluconate (Fergon) 324 mg PO TID [facility] Last Admin: 04/24/18 18:15 Dose: Not Given Fluconazole (Diflucan) 100 mg PO DAILY [facility] PRN Reason: Protocol Stop: 04/30/18 10:01 Last Admin: 04/24/18 10:44 Dose: Not Given Meropenem (Merrem Iv 1 Gm Premix) 50 mls @ 100 mls/hr IVPB Q8 [facility] PRN Reason: Protocol Stop: 04/27/18 22:01 Last Admin: 04/25/18 05:37 Dose: 100 mls/hr Thiamine HCl 100 mg/ Sodium (Chloride) 51 mls @ 102 mls/hr IV DAILY [facility] Last Admin: 04/24/18 11:52 Dose: 102 mls/hr Linezolid (Zyvox 600mg/300ml D5w) 600 mg in 300 mls @ 200 mls/hr IVPB Q12 [facility] PRN Reason: Protocol Stop: 04/28/18 22:01 Last Admin: 04/24/18 21:04 Dose: 200 mls/hr Amino Acids/Electrolytes/Dextrose (Clinimix 4.25/5 % "E" (2000 Ml)) 2,000 mls @ 83 mls/hr IV .Q24H [facility] Stop: 04/26/18 17:59 Last Admin: 04/24/18 18:15 Dose: 83 mls/hr Fat Emulsion Intravenous (Intralipid 20%) 250 mls @ 21 mls/hr IV MWF@1800 [facility] Last Admin: 04/24/18 18:15 Dose: 21 mls/hr Insulin Human Regular (Humulin R Med) 0 units SC ACHS [facility] PRN Reason: Protocol Last Admin: 04/25/18 07:47 Dose: Not Given Multivitamins/Vitamin C (Multi-Delyn Liquid) 15 ml PEG 0800 [facility] Last Admin: 04/24/18 10:43 Dose: Not Given Mupirocin (Bactroban Ointment) 0 gm TOP BID [facility] Last Admin: 04/24/18 18:18 Dose: 1 applic - Labs Labs: 04/25/18 08:24 04/25/18 08:24 PT 16.0 SECONDS (9.4-12.5) H 04/18/18 11:50 INR 1.38 (0.93-1.08) H 04/18/18 11:50 APTT 32.4 Seconds (25.1-36.5) 04/18/18 11:50 - Constitutional Appears: Chronically Ill - Head Exam Head Exam: NORMAL INSPECTION - Respiratory Exam Respiratory Exam: Decreased Breath Sounds - Cardiovascular Exam Cardiovascular Exam: +S1, +S2 - GI/Abdominal Exam GI & Abdominal Exam: Soft. absent: Tenderness Additional comments: dressings in place Assessment and Plan - Assessment and Plan (Free Text) Plan: Assessment severe sepsis with PEG tube site cellulitis, growing MRSA and Proteus multiple lower extremity ulcers, non-infected history of bilateral lower extremity cellulitis, growing MSSA, Serratia and Klebsiella history of cardiac arrhythmia and syncope history of prostate infection S/P prostate surgery gastritis and duodenitis Plan continue Zyvox, Merrem and Diflucan day 7 to complete 7-10 days of therapy will continue to follow clinically discussed with Dr. Mcleod previously - planning for hospice overall prognosis is poor
[2018-04-25 13:37] VITALS: PULSE 98
--- NOTE | 2018-04-25 13:49 | PN ---
DATE: 04/25/2018 SUBJECTIVE: He is in bed. His eyes are open. He is on IV antibiotics and PPN IV. Overall, poor prognosis, maybe grave prognosis. I cannot put the feeding tube back in due to his infection and a large hole he has and he has multiple problems with sepsis. He could amputation of one of the legs due to peripheral vascular disease, but I would not do it because of his condition he is in. MEDICATIONS: He is on Bactroban, PPN, DDAVP, Diflucan, Drisdol, DuoNebs, Fergon, insulin, Intralipid, Lovenox, Merrem IV, multivitamin, Santyl, thiamine and Zyvox. LABORATORY DATA: He has a 10.3 white count and a 10.2 hemoglobin and 247 platelets yesterday. Sodium 147, potassium 3.8, BUN 17, creatinine 0.6, last blood sugar was 109. ASSESSMENT AND PLAN: I am hoping that power of civil attorney will allow us to get him to [facility] where he is permanently staying for hospice. Since we cannot put the feeding tube back in, partial parenteral nutrition and he is very septic, unlikely he is able to go to clear the infection. This is a patient with failure to thrive, severe sepsis, await power of civil attorney for permission to put him on hospice. Yuri Mcleod DO [email or web address]
[2018-04-25 14:50] VITALS: BP 128/70; RESP 22; TEMP 97.8; O2SAT 95
== END 2018-04-25 18:55 | DRG 393 ==
LOC: ED 10:30 → ERH 15:36 → 2RNO 17:07 → 5RNO 04-24 23:03
PROVIDERS: ADMIT Family Medicine; ATTEND Family Medicine
PROC: 0D20XUZ Change Feeding Device in Upper Intestinal Tract, External Approach (ICD-10-PCS; principal; 2018-04-19)
PROC: 30233N1 Transfusion of Nonautologous Red Blood Cells into Peripheral Vein, Percutaneous Approach (ICD-10-PCS; 2018-04-19)
PROC: 3E0336Z Introduction of Nutritional Substance into Peripheral Vein, Percutaneous Approach (ICD-10-PCS; 2018-04-24)
DX: K94.22 Gastrostomy infection (principal); A41.9 Sepsis, unspecified organism; J18.9 Pneumonia, unspecified organism; R65.20 Severe sepsis without septic shock; L89.894 Pressure ulcer of other site, stage 4; I96 Gangrene, not elsewhere classified; L03.311 Cellulitis of abdominal wall; E23.2 Diabetes insipidus; I47.1 Supraventricular tachycardia; E87.4 Mixed disorder of acid-base balance; J44.0 Chronic obstructive pulmonary disease with (acute) lower respiratory infection; I69.359 Hemiplegia and hemiparesis following cerebral infarction affecting unspecified side; I10 Essential (primary) hypertension; E86.0 Dehydration; I73.9 Peripheral vascular disease, unspecified; K94.23 Gastrostomy malfunction; D64.9 Anemia, unspecified; E87.6 Hypokalemia; M34.9 Systemic sclerosis, unspecified; H54.61 Unqualified visual loss, right eye, normal vision left eye; H91.91 Unspecified hearing loss, right ear; R62.7 Adult failure to thrive; E78.5 Hyperlipidemia, unspecified; K29.80 Duodenitis without bleeding; K29.70 Gastritis, unspecified, without bleeding; I45.10 Unspecified right bundle-branch block; B96.4 Proteus (mirabilis) (morganii) as the cause of diseases classified elsewhere; B95.62 Methicillin resistant Staphylococcus aureus infection as the cause of diseases classified elsewhere; L89.222 Pressure ulcer of left hip, stage 2; L89.522 Pressure ulcer of left ankle, stage 2; L89.512 Pressure ulcer of right ankle, stage 2; L89.620 Pressure ulcer of left heel, unstageable; L89.112 Pressure ulcer of right upper back, stage 2; Z66 Do not resuscitate; Z96.642 Presence of left artificial hip joint; Z87.891 Personal history of nicotine dependence; Z85.46 Personal history of malignant neoplasm of prostate; I69.320 Aphasia following cerebral infarction; Z74.01 Bed confinement status